=== PATIENT | male | born 1955 | race Caucasian/White ===

== ENCOUNTER 2017-01-11 10:30 | Observation (INO) | payer OTHER ==
[2017-01-11] MEDS ORDERED: Ondansetron INJ* 2 MG/ML VIAL IV ONE (11:19)
[2017-01-11] MEDS ORDERED: NS 0.9% 1000 ML* 1,000 ML IV ONE ×2 (11:25→15:17)
--- NOTE | 2017-01-11 11:37 | ED ---
Adult Trauma - HPI Summary HPI Summary: Pt here w/ Lt rib/flank pain since falling during a seizure Saturday. Bruising along Lt side, pain - worse w/ deep breathes. Denies SOB, difficulty breathing otherwise. He wears a protective helmet for occasions such as this - no head injury to report and no GILL, visual change however he is on pradaxa (for heart valve replacements d/t endocarditis) and doesn't have full recollection of seizures. [facility] was not evaluated [facility] for this issue at [facility] per pt. Saturday, per pt, seizure meds were adjusted and he has been having fatigue, nausea, vomiting and diarrhea since. Has only been able to drink water - has not eaten since Saturday. Emesis has been clear until today - dark/black. Stools also dark and some BRB today - rectal area sore from repeated diarrhea. Diffuse ab pain. Received zofran on ambulance ride here - minimal relief. Spoke w/ nursing at [facility]: *no imaging of chest and no report of fall - does have report of seizure Saturday 01/06 but that's all *01/10 report of falling - c/o diarrhea, stools black then no stools in past 24 hours - "refused meds" - pt declined taking pradaxa - nurse reports hasn't had in 4 days. INR on 12/11 1.01 *No change in seizure meds per nursing notes - takes keppra and trileptal - last adjusted in 11/2016 *H&H trends: 09/19/2016 11.4; 33.8 10/23/2016 10.6; 31.4 12/11 10.4; 31.7 BP's: 08/2016 100/60 09/2016 127/80 01/06/2017 106/52 today 93/66 Has Crohn's dz Lt sided hemiplegia (baseline) - History of Current Complaint Chief Complaint: EDGIBleed Stated Complaint: ABD PAIN/VOMITING Time Seen by Provider: 01/11/17 10:43 Hx Obtained From: Patient Pain Intensity: 9 - Allergy/Home Medications Allergies/Adverse Reactions: Allergies Allergy/AdvReac Type Severity Reaction Status Date / Time Haloperidol [From Haldol] Allergy Hallucinati Verified 01/11/17 11:30 ons Home Medications: Home Medications Cholecalciferol TAB* [Vitamin D TAB*] 2,000 units PO DAILY 01/11/17 [History Confirmed 01/11/17] Cholestyramine Light [Prevalite] 4 gm PO BID 01/11/17 [History Confirmed ] Cyanocobalamin INJ * [Vitamin B12 INJ *] 1,000 mcg IM MONTHLY 01/11/17 [History Confirmed 01/11/17] Digoxin TAB* [Lanoxin TAB*] 0.125 mg PO DAILY 01/11/17 [History Confirmed ] Docusate CAP* [Colace Cap*] 200 mg PO DAILY 01/11/17 [History Confirmed 01/11/17 ] Ferrous Sulfate TAB* 325 mg PO BEDTIME 01/11/17 [History Confirmed 01/11/17] Lactase [Lactaid] 9,000 unit PO TID 01/11/17 [History Confirmed 01/11/17] Levetiracetam XR TAB(NF) [Keppra XR (NF)] 750 mg PO BID 01/11/17 [History Confirmed 01/11/17] Magnesium Oxide TAB* [MagOx 400 TAB*] 400 mg PO TID 01/11/17 [History Confirmed 01/11/17] Metoprolol Tartrate TAB* [Lopressor TAB*] 50 mg PO BID 01/11/17 [History Confirmed 01/11/17] Oxcarbazepine [Trileptal 600 MG tab] 600 mg PO BID 01/11/17 [History Confirmed 01/11/17] Potassium Chloride [Klor-Con 8] 8 meq PO BID 01/11/17 [History Confirmed ] Spironolactone TAB* [Aldactone TAB 25 MG*] 25 mg PO DAILY 01/11/17 [History Confirmed 01/11/17] Torsemide TAB* [Demadex 20 MG*] 40 mg PO DAILY 01/11/17 [History Confirmed 01/11] PMH/Surg Hx/FS Hx/Imm Hx Previously Healthy: Yes Endocrine/Hematology History: Reports: Hx Anticoagulant Therapy - pradaxa for heart valve replacement Denies: Hx Blood Transfusions - not in past 90 days Cardiovascular History: Reports: Hx Valvular Heart Disease - repalced d/t endocarditis complications - on pradaxa GI History: Reports: Hx Crohn's Disease - bowel resections Sensory History: Reports: Hx Contacts or Glasses Opthamlomology History: Reports: Hx Contacts or Glasses Neurological History: Reports: Hx Seizures - on meds, Other Neuro Impairments/ Disorders - Lt sided hemiplegia Infectious Disease History: No Infectious Disease History: Denies: Traveled Outside the [place] in Last 30 Days - Social History Occupation: Unemployed - incarcerated Lives: Dormitory/Roommates - in [facility] - [facility] Alcohol Use: None Hx Substance Use: No Substance Use Type: Reports: None Hx Tobacco Use: Yes Smoking Status (MU): Former Smoker Review of Systems Positive: Fatigue - as in HPI Eyes: Negative Negative: Photophobia, Blurred Vision, Diplopia Negative: Dental Pain Positive: Chest Pain - see HPI Negative: Shortness Of Breath Gastrointestinal: Other - see HPI Positive: no symptoms reported Musculoskeletal: Other - see HPI Positive: Bruising - see HPI Positive: Weakness - baseline on Lt - see HPI. Negative: Headache Psychological: Other - frustrated w/ adjustment of seizure med - feels this is triggering vomiting/diarrhea/fatigue All Other Systems Reviewed And Are Negative: Yes Physical Exam Triage Information Reviewed: Yes Vital Signs On Initial Exam: Initial Vitals Temp Pulse Resp BP Pulse Ox 97.3 F 92 17 96/61 97 01/11/17 10:46 01/11/17 10:46 01/11/17 10:46 01/11/17 10:46 01/11/17 10:46 Vital Signs Reviewed: Yes Appearance: Positive: Well-Nourished - weight appropriate for height however nutrional health status unknown, Ill-Appearing - skin with subtle jaundice appearance Skin: Positive: Warm, Dry - purpuric ecchymosis over Lt flank and pelvic are - TTP; ecchymosis over Lt lower extremity - no skin breakdown - moving well Head/Face: Positive: Normal Head/Face Inspection - NTTP, no gross deformity; no battlesign, no raccoon eyes, no step off Eyes: Positive: Normal, EOMI, WISAM, Conjunctiva Clear ENT: Positive: Hearing grossly normal, TMs normal - limited observation d/t cerumen impaction. Negative: Nasal drainage Dental: Negative: Dental Fracture @ Neck: Positive: Supple, Nontender Respiratory/Lung Sounds: Positive: Clear to Auscultation, Breath Sounds Present. Negative: Rales, Rhonchi, Subcutaneous Emphysema, Stridor, Tracheal Deviation, Wheezes, Unable to speak in full sentences - speaking in full sentences w/o difficulty Cardiovascular: Positive: Pulses are Symmetrical in both Upper and Lower Extremities, IRR, Murmur. Negative: Leg Edema Left, Leg Edema Right Abdomen Description: Positive: Soft, Other: - generalized TTP, old healed ab scarring (appears surgical) Bowel Sounds: Positive: Present Musculoskeletal: Positive: Limited @ - Lt UE and LE movements - baseline Neurological: Positive: Sensory/Motor Intact - baseline for him, Alert, Oriented to Person Place, Time, CN Intact II-III Psychiatric: Positive: Normal - Chris Coma Scale Best Eye Response: 4 - Spontaneous Best Motor Response: 6 - Obeys Commands Best Verbal Response: 5 - Oriented Coma Scale Total: 15 Diagnostics - Vital Signs Vital Signs Temp Pulse Resp BP Pulse Ox 01/11/17 10:46 97.3 F 92 17 96/61 97 - Laboratory Result Diagrams: 01/12/17 04:30 01/12/17 04:30 Lab Statement: Any lab studies that have been ordered have been reviewed, and results considered in the medical decision making process. Adult Trauma Course/Dx - Course Course Of Treatment: Pt presents w/ trauma of falling to floor during seizure ( he reports Saturday; nursing reports 01/06 "seizure" and 01/10 "fall") w/ Lt sided rib/flank pain - worse w/ deep breath. CT reveals multiple rib fx's w/o pneumothorax and breathing well, pulse ox WNL. Brain and chest/ab/pelvis CT's are w/o other acute injury. Pt's labs reveal anemia however after reviewing trend w/ nurse from [facility], this appears to be a slow decline - vitals are stable today however BP is low and so IVF ordered. Pt's blood type if O+. He does take pradaxa but per nursing has declined past 4 days - this may be reversed if needed as he appears to have a GI bleed. Discussed w/ Dr. Reed. Consult hospital service (Kareem Parr) and GI (Dr. Christophe mccauley) - pt to be admitted her or transfered - hospital service to decide level of acuity, capability to further care of pt. Critical care time: 20 minutes - Diagnoses Provider Diagnoses: Fall due to seizure, Multiple rib fractures, GI bleeding - Physician Notifications Discussed Care Of Patient With: Sukhjinder Reed Discharge - Discharge Plan Condition: Stable Disposition: ADMITTED TO [facility]
[2017-01-11 11:38] LABS: Hematocrit 28 % (42-52); Hemoglobin 9.7 g/dl (14.0-18.0); Mean Corpuscular HGB Conc 34 g/dl (31-36); Mean Corpuscular Hemoglobin 32 pg (27-31); Mean Corpuscular Volume 92 fL (80-94); Mean Platelet Volume 9 um3 (7.4-10.4); Red Blood Count 3.06 10^6/ul (4.0-5.4); Red Cell Distribution Width 16 % (10.5-15)
[2017-01-11 11:39] LABS: Add Diff/Slide Review? Manual Diff Added; Comments Flag Yes
[2017-01-11] MEDS ORDERED: Pantoprazole IV* 40 MG ONE (11:44)
[2017-01-11] MEDS ORDERED: Pantoprazole IV* 40 MG IV ONE (11:44)
[2017-01-11 11:51] LABS: ALT 9 U/L (7-52); AST 10 U/L (13-39); Albumin 3.4 g/dL (3.2-5.2); Alkaline Phosphatase 111 U/L (34-104); Anion Gap 13 mmol/L (2-11); BUN/Creatinine Ratio 32.6 (8-20); Blood Urea Nitrogen 71 mg/dL (6-24); CO2 Carbon Dioxide 24 mmol/L (22-32); Calcium 8.3 mg/dL (8.6-10.3); Chloride 97 mmol/L (101-111); EGFR Non-African American 31.1 (>60); Globulin 2.3 g/dL (2-4); Glucose 115 mg/dL (70-100); Potassium 4.6 mmol/L (3.5-5.0); Sodium 134 mmol/L (133-145); Total Protein 5.7 g/dL (6.4-8.9)
[2017-01-11] MEDS ORDERED: Iodixanol* (CONTRAST) 320 MG/ML 100 ML SDV IV ONE (12:00)
[2017-01-11 12:02] LABS: Alcohol < 10 mg/dL (<10)
[2017-01-11 12:32] LABS: Troponin I 0.04 ng/mL (<0.04)
--- NOTE | 2017-01-11 12:50 | RAD ---
HISTORY: Seizure, anticoagulation, head trauma COMPARISONS: None TECHNIQUE: Multiple contiguous axial CT scans were obtained of the head without intravenous contrast. FINDINGS: HEMORRHAGE/INFARCT: There is no hemorrhage or acute infarct. MASSES/SHIFT: There is no mass or shift. EXTRA-AXIAL SPACES: There are no extra-axial fluid collections. SULCI AND VENTRICLES: There is ex vacuo dilatation of the body of the right lateral ventricle. CEREBRUM: There is right frontoparietal encephalomalacia. There is left occipital encephalomalacia. There is minimal left frontal and cephalization. BRAINSTEM: There are no focal parenchymal abnormalities. CEREBELLUM: There are no focal parenchymal abnormalities. VESSELS: The vessels are grossly normal. PARANASAL SINUSES: The paranasal sinuses are clear. ORBITS: The orbits are unremarkable. BONES AND SOFT TISSUE: No bone or soft tissue abnormalities are noted. OTHER: None IMPRESSION: MULTIFOCAL ENCEPHALOMALACIA. NO ACUTE INTRACRANIAL PATHOLOGY.
[2017-01-11 12:51] LABS: Eosinophils % 1 % (0-6); Hypochromasia 1+; Immature Granulocytes 23 % (0-9); Neutrophil % 41 % (38-83); Polychromasia 1+; Reactive Lymph % 2 % (0-6)
[2017-01-11 12:52] LABS: Toxic Granulation 1+
[2017-01-11 12:53] LABS: Add Path Review? YES
--- NOTE | 2017-01-11 12:57 | RAD ---
HISTORY: Left chest and flank pain, status post fall, on anticoagulation COMPARISONS: None TECHNIQUE: Multiple contiguous axial CT scans were obtained of the chest, abdomen, and pelvis after the administration of intravenous contrast. Coronal and sagittal multiplanar reformations are submitted for review.. Oral contrast was not administered. Delayed images were obtained through the abdomen and pelvis. FINDINGS: CHEST NECK AND THYROID: The lower neck and thyroid are unremarkable. CHEST WALL: There is no lower cervical, axillary, or supraclavicular lymphadenopathy by size criteria. HEART AND PERICARDIUM: The heart is unremarkable. AORTA AND PULMONARY VASCULATURE: There is a metallic stent of the main pulmonary artery MEDIASTINUM: There is no mediastinal lymphadenopathy by size criteria. ADOLFO: There is no hilar lymphadenopathy by size criteria. AIRWAY AND ESOPHAGUS: There is mild mucosal thickening of the esophagus diffusely. LUNG PARENCHYMA: The lungs are clear. PLEURA: No pleural abnormalities are noted. BONES AND SOFT TISSUES: There are nondisplaced fractures of the lateral aspect of the left seventh eighth and ninth ribs. Mild degenerative changes are noted. The patient is status post median sternotomy ABDOMEN/PELVIS: LIVER: The liver is normal in shape, size, contour, and attenuation. BILE DUCTS: There is mild left intrahepatic biliary dilatation. The common duct is not well visualized. GALLBLADDER: The gallbladder is not visualized. PANCREAS: The pancreas is normal, without mass or ductal dilatation. SPLEEN: Normal in size and appearance. UPPER GI TRACT: Evaluation of the gastrointestinal tract is limited by incomplete gastric distention. The patient appears to be status post choledochojejunostomy. There is postsurgical change to the upper GI tract. SMALL BOWEL \T\ MESENTERY: There is diffuse distention of the small bowel loops without clear transition point. COLON: The colon is normal in contour, course, caliber. There is no pericolonic inflammatory change. ADRENALS: Normal bilaterally. KIDNEYS: There is a 0.7 cm nonobstructing calculus of the lower pole of left kidney. BLADDER: The bladder is smooth in contour. PELVIC ORGANS: The prostate gland is normal. The seminal vesicles are symmetric. AORTA: The aorta is normal. IVC: Unremarkable LYMPH NODES: There is no lymphadenopathy by size criteria. ABDOMINAL WALL: There is no evidence for abdominal wall hernia. BONES AND SOFT TISSUES: Mild degenerative changes are noted OTHER: There is no active arterial extravasation. IMPRESSION: 1. NONDISPLACED LEFT-SIDED RIB FRACTURES. NO APPRECIABLE PNEUMOTHORAX. 2. DIFFUSE MUCOSAL THICKENING OF THE ESOPHAGUS. 3. THE PATIENT APPEARS TO BE STATUS POST CHOLEDOCHOJEJUNOSTOMY. 4. THERE IS DIFFUSE DISTENTION OF THE SMALL BOWEL LOOPS WITHOUT TRANSITION POINT. 5. LEFT-SIDED NEPHROLITHIASIS, NO HYDRONEPHROSIS.
[2017-01-11] MEDS ORDERED: traMADol TAB* 50 MG PO PRN (13:21)
[2017-01-11] MEDS ORDERED: NS 0.9% 1000 ML* 1,000 ML IV SCH (13:30)
[2017-01-11] MEDS: Ondansetron INJ* 2 MG/ML VIAL IV PRN ×2 (13:36→19:40)
[2017-01-11 13:50] LABS: Digoxin 0.7 ng/ml (0.8-2.0)
[2017-01-11] MEDS ORDERED: Zosyn per Pharmacy* NOTE FOLLOW UP SCH (14:00)
[2017-01-11] MEDS ORDERED: IDARUCIZUMAB* 2.5 GM/50 ML VIAL IV ONE (14:02)
[2017-01-11] MEDS: NS 0.9% 1000 ML* 1,000 ML IV SCH (14:21)
[2017-01-11] MEDS: Pantoprazole IV* 80 MG in NS 0.9% 250 ML* 250 ML IVPB SCH (14:21)
[2017-01-11] MEDS ORDERED: Vancomycin(*) 1,000 MG in NS 0.9% 250 ML* 250 ML IVPB ONE (14:30)
[2017-01-11 14:33] LABS: Creatine Kinase 11 U/L (10-223)
[2017-01-11] MEDS: CMCS:Lactase Enzyme (NF) 3,000 UNIT TAB PO SCH ×2 (15:54→20:32)
[2017-01-11 16:53] LABS: Hematocrit 25 % (42-52); Hemoglobin 8.3 g/dl (14.0-18.0)
--- NOTE | 2017-01-11 16:53 | HP ---
CC: Dr. Dinero; Dr. Saeed; [facility] * HISTORY AND PHYSICAL: DATE OF ADMISSION: 01/11/17 PRIMARY CARE PROVIDER: [facility]. ATTENDING PHYSICIAN WHILE IN THE HOSPITAL: Dr. Serenity Will * (report dictated by Kareem Parr NP) CHIEF COMPLAINT: 1. Fall. 2. Nausea and vomiting. 3. Black vomit. HISTORY OF PRESENT ILLNESS: Mr. Erazo is a 61-year-old male patient with a very complex medical history. He has a history of valvular heart disease. He has had a congenital heart defect. He says it was mitral valve and he has had 3 valve replacements. He has had multiple episodes of endocarditis. He has had CVA, history of AFib, he has had a history of ITP, history of PR, history of CAD, hyperlipidemia, and seizures. He comes into the ED today and says that he thinks about a week or so ago, he was recently started on Trileptal, new seizure medication, and since being on this medication, he has been feeling drowsy. He has been feeling very lethargic and tired. He says he had been pretty well controlled prior to the addition to this medication, he was having some petit mal seizures occasionally, just on Keppra, but he had again started vomiting up some black type vomit. There was concern and also tested heme positive here in the ED. In addition to this, his H and H had slightly dropped from his previous hemoglobin of 10.4, now is 9.7. The patient came into the ED , he was evaluated and because of the concern for GI bleed, we were asked to evaluate for admission. PAST MEDICAL HISTORY: Significant for: 1. CAD. 2. Hyperlipidemia. 3. History of seizures 4. Mitral valve defect that was congenital. 5. History of stroke. 6. History of endocarditis. 7. History of ITP. 8. History of AFib. 9. History of PR. PAST SURGICAL HISTORY: 1. He has had open heart surgery twice. 2. He has had numerous cardiac catheterizations with valve repairs. 3. He has had some bowel resections as well. He is unable to tell me when and exactly what resections he has had done. MEDICATIONS: Home meds according to the preliminary list that we got include: 1. Demadex 40 mg daily. 2. He is on Pradaxa 1 tablet twice a day. 3. Aldactone 25 mg daily. 4. Potassium 8 mEq p.o. b.i.d. 5. Trileptal 600 mg p.o. b.i.d. 6. Metoprolol 50 mg p.o. b.i.d. 7. Mag oxide 400 mg p.o. t.i.d. 8. Keppra 750 mg p.o. b.i.d. 9. Lactase 9000 units p.o. t.i.d. 10. Ferrous sulfate 325 mg p.o. at bedtime. 11. Colace 200 mg daily. 12. Digoxin 0.125 mg p.o. daily. 13. B12 1000 mcg IM monthly. 14. Cholestyramine 4 g p.o. b.i.d. 15. Vitamin D 2000 units p.o. daily. ALLERGIES TO MEDICATIONS: Include HALDOL. FAMILY HISTORY: His father, he thinks had MS. His mother was diabetic. SOCIAL HISTORY: He is a former smoker and former alcoholic; he quit back in the 80s. He currently resides at [place]. He does not have a surrogate decision maker at this point. REVIEW OF SYSTEMS: There is no documented fever. He denied having any significant weight change. There was no double vision. He denies having any ear discharge. There was no rhinorrhea. No sore throat. No thyroid enlargement. He denied having any chest pain. There was no orthopnea, no nocturnal dyspnea. There was no abdominal pain, but he has been having left- sided flank and chest discomfort where he felt. There is no abdominal discomfort. He does admit having some nausea with vomiting. There is no dysuria, no frequency. He denied any loss of consciousness and no recent seizures were noted to me. Review of 14 systems completed, all others negative. PHYSICAL EXAMINATION GENERAL: At this time, Mr. Erazo is a 61-year-old male patient, he is chronically ill appearing. He is sitting in the ER stretcher. He does not appear to be in any acute distress. VITAL SIGNS: Reveal blood pressure 104/50 with a pulse of 107, respirations 18 , O2 sat 99%, temperature 97.3. HEENT: Head, atraumatic and normocephalic. Eyes: EOMs are intact. Sclerae anicteric and not pale. Throat: Oral mucosa appears to be moist. No oropharyngeal erythema. NECK: Supple. LUNGS: Clear to auscultation bilaterally. No wheezes, rales, or rhonchi. HEART: Sounds S1, S2. Irregularly irregular rate. No rubs or gallops. He did have a murmur in the aortic listening area, grade 2 to 3. ABDOMEN: Soft, flat, nontender. Bowel sounds are present. EXTREMITIES: Pulses are 2+ throughout. No peripheral edema. NEUROLOGIC: He is awake, he is alert, he is oriented x3. His tongue is midline. Head Of Design are equal. He had no gross focal deficits. SKIN: Intact. DIAGNOSTIC STUDIES/LAB DATA: WBC of 7.0; RBC of 3.06; hemoglobin 9.7, hematocrit 28, his last hemoglobin that I have access to is from 12/11/16, and it was 10.4; platelet count of 146. His bands were 23. INR 1.79. His sodium was 134, potassium of 4.6, chloride of 97, bicarb 24, BUN 71, creatinine 2.18, glucose 115, lactate 1.9, calcium 8.3. Total bili 0.6, AST 10, ALT 9, alk phos 111. Troponin 0.04. Albumin 3.4. His digoxin level is pending. Serum alcohol negative. He had a brain CT obtained, which revealed multifocal encephalomalacia. No acute intracranial pathology. He did have a CT chest, abdomen, and pelvis, which revealed nondisplaced left- sided rib fractures. No appreciable pneumothorax. Diffuse mucosal thickening in the esophagus. The patient appears to be status post choledochojejunostomy, diffuse distention of the small bowel loops without transition point, left- sided nephrolithiasis, no hydronephrosis. He had an EKG, which I do not have previous for comparison, which does show atrial fibrillation, diffuse ST depression and an inversion in V2, 3, 4, and 5 with T-wave inversions in leads 1 and aVL. He has a left anterior fascicular block. No previous EKGs unfortunately for comparison. Old medical records were reviewed. ASSESSMENT AND PLAN: Mr. Erazo is a 61-year-old male patient with a complex medical history. Unfortunately, we do not have many records and we are trying to obtain, but he comes today after a fall, he has been vomiting off and on until the last week in addition to this, today in the last 24 hours, he started vomiting up some black type vomit. We are asked to evaluate for admission. He will be admitted under observation status for: 1. Presumed upper gastrointestinal bleed. Again, at this point, the concern that he could have Mila-Thrasher tear from all the vomiting and nausea that he has been having and he could be bleeding now. He is now Pradaxa and he is also heme positive. There was some scant blood on my rectal exam and mucus. My plan at this point will be to hold the Pradaxa, Protonix drip, two IVs, normal saline, serial H and H. I will touch base with Dr. Saeed, who will be evaluating the patient. 2. Nausea and vomiting. CT does show distended small bowel loops. I am going to touch base with Surgery to evaluate the patient. He does not have a transition point. He said he had a bowel movement yesterday and he has been having bowel movements throughout the week, so I do not think he is obstructed per se at this point, but I would like to have them just evaluate. The nausea and vomiting could be or direct result of the recent change with the Trileptal, which is a side effect. We will monitor this and will continue to follow. 3. Bandemia. I do not see any obvious source of infection. He is nontender on abdominal exam. He is little distended, but he is nontender. No pain. No fevers were noted. I do not have a urine, so I am going to check. His chest x- ray was negative. This could be just reaction to his underlying possible bleed , so I would like to monitor this. We will hydrate him and get blood cultures. If he spikes a fever, I will put him on broad-spectrum antibiotics, but I do not have an obvious source, we will follow closely. 4. History of valvular heart disease. I am going to get a baseline echo here. His EKG does have some significant changes, but I do not know if these are chronic or new. He is not having any active chest pain. The troponin was mildly elevated. I am going trend these and get the echo and we will continue to follow and again try to get records from [facility] to help us. 5. Atrial fibrillation. His rate now is right around 100s. We will continue the digoxin pending a dig level. If this is high, we will hold. He does have acute renal failure, which makes it difficult to give. We will monitor his levels closely. I will continue his beta magnolia, as I do not want him to go in the rapid atrial fibrillation, which will make the situation much worse. If his blood pressure is able to tolerate, we will continue with the Lopressor and we will follow I'm holding the Pradaxa. 6. History of cerebrovascular accident. Again, when able we will restart his medications, we will continue with secondary prevention. 7. History of endocarditis. Again, I do not think this is an active issue now , but I am getting blood cultures because of the bandemia. We will follow. 8. History of idiopathic thrombocytopenic purpura. Platelet count stable. We will monitor. 9. DVT prophylaxis. SCDs. 10. Acute renal failure. I do not have baseline creatinine. He may be at his baseline, but I will get a FENa on him to start with. He does appear to be prerenal. We will hydrate him and we will monitor. 11. Indeterminate troponin. Again, this could be just demand ischemia from the fact that he is suffering from possible presumable bleed. We will at this point trend these and we are getting an echo. If they continue to elevate, I will get Cardiology involved and he is asymptomatic at this point. 12. Code status. He is full code. 13. Fluids, electrolytes, and nutrition. He is n.p.o. for the time being. TIME SPENT: On the admission was 80 minutes, greater than half the time was spent [id number] with the patient obtaining my history and physical; the other half time was spent going over the plan of care with the patient and implementing plan of care. I did discuss the plan of care with my attending, Dr. Will; she is in agreement. KAREEM PARR, JANEY [id number]/CPS #: [id number] MTDD
[2017-01-11 16:56] LABS: Comments Flag Yes
[2017-01-11] MEDS ORDERED: Digoxin TAB* 0.125 MG PO SCH (17:00)
[2017-01-11 17:08] LABS: Urine Bacteria Absent (Absent); Urine Bilirubin Negative (Negative); Urine Glucose 1+(50 mg/dL) (Negative); Urine Nitrite Negative (Negative)
--- NOTE | 2017-01-11 17:12 | ECHO ---
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 Technical Comments: The study quality is fair. The study is technically limited due to patient body habitus. Completed at 1500. Left Ventricle: The left ventricular chamber size is decreased. Moderate concentric left ventricular hypertrophy is observed. Global left ventricular wall motion and contractility are within normal limits. There is normal left ventricular systolic function. The estimated ejection fraction is 55-60%. Ventricular septal wall motion has a post-operative appearance. The assessment of diastolic function is non-diagnostic. Left Atrium: The left atrium is severely dilated. Right Ventricle: The right ventricle is not well visualized. The right ventricular global systolic function is normal. Right Atrium: The right atrium is moderate to severely dilated. Aortic Valve: The aortic valve is trileaflet. There is mild to moderate aortic regurgitation. There is no evidence of aortic stenosis. Mitral Valve: There is a trace of mitral regurgitation. There is no evidence of mitral stenosis. Tricuspid Valve: The tricuspid valve structure is not well visualized. There is moderate tricuspid regurgitation. The right ventricular systolic pressure is estimated at 64 mmHg. There is evidence of severe pulmonary hypertension. There is no tricuspid stenosis. Pulmonic Valve: The pulmonic valve structure is not well visualized. Pericardium: There is no significant pericardial effusion. A pericardial fat pad is visualized. Aorta: There is no dilatation of the ascending aorta. There is no dilatation of the aortic arch. The aortic root is normal in size. Pulmonary Artery: The main pulmonary artery is not well visualized. Venous: The inferior vena cava appears normal in size. There is a greater than 50% respiratory change in the inferior vena cava dimension. Summary: There was not any prior study for comparison. Conclusions The study is technically limited due to patient body habitus. Completed at 1500. Moderate concentric left ventricular hypertrophy is observed. The estimated ejection fraction is 55-60%. Ventricular septal wall motion has a post-operative appearance. The left atrium is severely dilated. There is mild to moderate aortic regurgitation. 1.1 cm x 1.4 cm echo density on anterior MV leaflet There is a trace of mitral regurgitation. There is moderate tricuspid regurgitation. The right ventricular systolic pressure is estimated at 64 mmHg. There is evidence of severe pulmonary hypertension. Measurements Name Value Normal Range RVIDd (AP) 2D 3 cm (0.9 - 2.6) RVDdMajor (2D) 4 cm (2.2 - 4.4) RAd ISD 4CH 6.5 cm (3.4 - 4.9) RA (A4C)W 4.4 cm (2.9 - 4.6) IVSd (2D) 1.5 cm (0.6 - 1) LVPWd (2D) 1.5 cm (0.6 - 1) LVIDd (2D) 3.3 cm (3.6 - 5.4) LVIDs (2D) 2.2 cm - LV FS (2D) 33 % (25 - 45) Aortic Annulus 2.2 cm (1.4 - 2.6) Ao root diameter (2D) 3.5 cm (2.1 - 3.5) Ascending Ao 2.6 cm (2.1 - 3.4) Aortic arch 1.9 cm (1.8 - 3.4) LA dimension (AP) 2D 6.4 cm (2.3 - 3.8) LAd ISD 4CH 7 cm (2.9 - 5.3) LA ISD 4CH W 6.2 cm (2.5 - 4.5) Name Value Normal Range LA ESV SP 4CH (A/L) 104 ml - LA ESV SP 2CH (A/L) 85 ml - LA ESV BP (A/L) 97 ml - LA ESV BP (A/L) index 59.44 ml/m2 - LA ESV SP 4CH (MOD) 101 ml - LA ESV SP 2CH (MOD) 81 ml - Name Value Normal Range MV E-wave Vmax 1.89 m/sec - LV septal e' Vmax 0.03 m/sec - LV lateral e' Vmax 0.05 m/sec - LV E:e' septal ratio 63 ratio - LV E:e' lateral ratio 37.8 ratio - Name Value Normal Range AV Vmax 1.66 m/sec - AV VTI 23.39 cm - AV peak gradient 11.07 mmHg - AV mean gradient 5.62 mmHg - LVOT diameter 2 cm - LVOT Vmax 1.89 m/sec - LVOT VTI 25.66 cm - LVOT peak gradient 14.37 mmHg - LVOT mean gradient 7.83 mmHg - AR PHT 382.6 msec - AR peak gradient 51.95 mmHg - KARYNA Vmax 1.1 m/sec - Name Value Normal Range MV Vmax 1.89 m/sec - MV PHT 85.04 msec - MVA (PHT) 2.6 cm2 - Name Value Normal Range TR Vmax 3.9 m/sec - TR peak gradient 61 mmHg - RAP 3 mmHg - RVSP 64 mmHg - IVC diameter 1.9 cm - Name Value Normal Range PV Vmax 1.35 m/sec - PV peak gradient 7.2 mmHg -
[2017-01-11] MEDS: Acetaminophen TAB* 325 MG PO PRN (17:17)
[2017-01-11] MEDS ORDERED: Vancomycin per Pharmacy* NOTE FOLLOW UP PRN (17:41)
[2017-01-11 17:55] LABS: Benzodiazepine Urine Screen None Detected (None Detect)
[2017-01-11] MEDS: ZOSYN 3.375 GM Q8H per EXTENDED INFUSION IVPB SCH ×2 (19:40)
--- NOTE | 2017-01-11 20:18 | CONS ---
NEUROLOGY CONSULTATION NOTE: DATE OF CONSULT: 01/11/17 REQUESTING PROVIDER: Kareem Parr NP REASON FOR CONSULT: History of seizures, newly prescribed Trileptal with reported side effects. 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 He reports that he fell and injured his ribs several days ago. He comes from [facility]. He has then begun to have nausea as well as emesis over the past several days, which today became dark/black. He has also had diarrhea. He reports that he was started on Trileptal recently, though he is not exactly sure when he was started on that medication. He believes that this has been making him more drowsy and has caused his nausea and repeated vomiting and diarrhea. He tells me that he has been refusing the Trileptal for the last several days secondary to these side effects. He believes his last seizure was about a week, week and half ago. Otherwise, he takes Keppra and was unsure of the dose, but according to the records which accompany the patient from [place], he is on Keppra XR 750 mg twice daily. In terms of his history of seizures, the patient tells me that he has had seizures since he had a head injury in June 2004. He indicates that he had open heart surgery I believe for valve replacement in May 2004 and then says that he was in a facility in [place] and was ambulating shortly after this surgery in June when he fell and struck the right side of his head on a toilet. When asked if he had intracranial hemorrhage, he reports that he must have, but he is not aware of the extent. He thinks he might have been in the hospital for about a month. He reports that he began having seizures immediately following this and they were initially convulsions, but over time they have become less intense and he describes having seizures which consist of left arm and head clonic activity which can last 5 to 10 minutes. He is sometimes aware and sometimes not aware during these episodes. He typically has an aura of "being out in space" before the seizures occur. With initiation of Keppra, he states that his seizures typically occur about once a week, but sometimes he will go a month without any seizures. Triggers include stress and being fatigued. He reports that if he is mentally active, for example writing a letter, he will not have a seizure, but when he is sitting quietly relaxing he is more likely to experience a seizure. 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 The patient is unaware of ever being treated with seizure medication besides Keppra until Trileptal was recently added. He is unclear as to why Trileptal was added now except that he was transferred from the skilled nursing in [place] in September to [place] here. Neurology input was requested secondary to his history of seizure disorder and difficulty with tolerating Trileptal. PAST MEDICAL HISTORY: 1. 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 2. 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 3. Crohn's disease. 4. Valve replacement secondary to endocarditis. HOME MEDICATIONS: 1. Torsemide 40 mg daily. 2. Levetiracetam XR 750 mg twice daily. 3. Metoprolol 50 mg twice daily. 4. Docusate 200 mg daily. 5. Cholestyramine 4 g twice daily. 6. Spironolactone 25 mg daily. 7. Potassium chloride 8 mEq b.i.d. 8. Magnesium oxide 400 mg t.i.d. 9. Ferrous sulfate 325 mg at bedtime. 10. Digoxin 0.125 mg daily. 11. Oxcarbazepine 600 mg b.i.d. 12. B12 injection 1000 mcg monthly. 13. Lactate. 14. Vitamin D 2000 units daily. ALLERGIES: HALDOL causes hallucinations. FAMILY HISTORY: The patient denies any knowledge of any family members with epilepsy. There is a history of diabetes and heart disease in the family. SOCIAL HISTORY: The patient is an inmate at [facility] and prior to that has been an inmate at a facility called [facility] in [place] since at least 2004. He reports being a former smoker and no current substance abuse. REVIEW OF SYSTEMS: The patient endorses feeling dizzy and fatigued recently. He has had flank pain as noted. PHYSICAL EXAM: Vital Signs: Temperature 98.2 with a T-max 100 degrees Fahrenheit at 1343, blood pressure 103/48, heart rate 101, O2 saturation is 97% on room air. General Examination: The patient is alert and awake, in no acute distress. He is a reasonable informant. Heart: Tachycardic without obvious murmur. Lungs: Clear anteriorly to auscultation. Extremities: Notable for multiple bruises over his lower extremities and abrasion on his left lateral calf. Neurological Exam: He is fully awake, alert, and oriented. Speech is fluent without dysarthria or aphasia. On cranial nerve testing, his pupils are equal, round, and reactive from 3 to 2 mm bilaterally. His eye movements were somewhat restricted in right lateral gaze, but there is no nystagmus or diplopia. Field testing is notable for left homonymous hemianopsia and right inferior quadrant defect. His facial sensation is diminished to light touch in left V1 throughout V3 distributions. There is slight nasolabial fold flattening , but good activation with smile. His forehead wrinkles symmetrically. He endorses diminished hearing to finger rub on the left. The palate elevates symmetrically and the tongue is midline. Motor Examination: He has spasticity in the left arm and leg. He has a left hemiparesis and strength is full on the right. Sensation is diminished to pinprick in the left arm and leg. Reflexes are 2+ in the right arm and leg, 3+ in the left arm and at the knee with downgoing or mute toes bilaterally. [id number] is intact without ataxia. He was not ambulated. DIAGNOSTIC STUDIES/LAB DATA: CBC is notable for hematocrit of 28, hemoglobin of 9.7, and platelets of 146,000. He has 23% bands. Chemistry panel is notable for creatinine of 2.18, BUN 71, chloride is 97 and anion gap of 13. Glucose of 115, calcium of 8.3. His troponin is 0.04, lactate 1.9. Brain CT was obtained and personally reviewed and shows extensive encephalomalacia in the right frontoparietal region at the vertex with ex vacuo dilation of the right lateral ventricle. There is also some encephalomalacia in the left parietal occipital lobe as well as a small area in the left frontal lobe. IMPRESSION: Ronald Erazo is a 61-year-old man with a history of localization related epilepsy which sounds as though it arises from the right hemisphere and is likely secondary to the extensive encephalomalacia noted on CT scan. He reports having seen a physician by the name of Dr. Cabello, neurologist in [place] in the past prior to his transfer to this facility. I have talk to Kareem Parr and we will try to track down some records from her in terms of the medications he has been tried on if anything besides Keppra in the past. At this point, I would not recommend continuing the Trileptal and it sounds like he has not been taking it for several days anyway. I will increase his Keppra to 750 mg in the morning and 1500 mg at night and we will send off a level as well. It appears this has actually already been ordered in the emergency department. If monotherapy with Keppra fails to adequate control his seizures, then consideration could be given to adding a second agent, but at this point I would try to work slowly with the Keppra for the time being, especially until previous neurologist records are obtained. Dr. Allred will be taking over the neurology service this evening and he will receive sign-out on the patient. [id number]/[facility] #: [id number] MTDD
[2017-01-11] MEDS: Metoprolol Tartrate TAB* 50 mg PO SCH (20:32)
[2017-01-11] MEDS ORDERED: levETIRAcetam TAB* 500 MG PO SCH ×2 (21:00)
[2017-01-11] MEDS ORDERED: OXcarbazepine TAB(*) 300 MG PO SCH (21:00)
[2017-01-11] MEDS: Morphine INJ* 4 MG/ML 1 ML CARPUJECT IV PRN (21:07)
--- NOTE | 2017-01-11 21:26 | CONS ---
GASTROENTEROLOGY CONSULTATION: DATE OF CONSULTATION: 01/11/17 CONSULTING PHYSICIANS: Dr. Tarik Glover, [place]; Kareem Parr, [place]. REASON FOR CONSULTATION: Coffee-ground emesis times several days with hemoglobin down just less than a gram from a baseline of 10.4 to 9.7. HISTORY: DICTATION ENDS ABRUPTLY. [id number]/[facility] #: [id number] MTDD
--- NOTE | 2017-01-11 21:52 | CONS ---
GASTROENTEROLOGY CONSULT: DATE: 01/11 CONSULTING PHYSICIAN: Kiran Glover, [facility]; Kareem Parr NP REASON FOR CONSULT: Coffee-ground emesis in a man with a history of seizures, multiple prior abdominal surgeries, and chronic renal insufficiency. HISTORY OF PRESENT ILLNESS: This 61-year-old prisoner a few days ago began vomiting. He first saw some blood in it this morning at 8 a.m. There was no fever when this started. His diet had not changed. The only new factor that could be referenced was a change in his seizure regimen with the addition of Trileptal. He states his diet is regular. He does not have any chronic acid peptic complaints in general. He does have a history of chronic diarrhea, for which he is on Prevalite and he is also on magnesium regularly and ferrous sulfate. He references multiple abdominal surgeries - see below. He has had a prior upper endoscopy, but it was over 15 years ago and does not know of the findings. It was probably done by Dr. Gudino at [facility]. He has been retired over 5 years, possibly 10. The patient fell injuring his left side 4 or 5 days ago, which he blamed on the Trileptal. CT in the emergency room today showed 3 broken ribs and some ecchymoses in that area. He is on Pradaxa because of atrial fibrillation, currently on hold. He says he takes Tylenol for various indications and has not been on aspirin, ibuprofen, or Aleve. PAST MEDICAL HISTORY: 1. Mitral valve repair, age 10. 2. Bovine valve replacement - details unknown. 3. Multiple cardiac catheterizations and valve procedures. 4. 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 5. Exploratory laparotomy with lysis of adhesions in 1987. 6. Chronic diarrhea - he mentions irritable bowel and Crohn's and is not really specific on the difference of the details. He has been on cholestyramine for 30 years or more. He cannot reference any specific Crohn's medications and does not recognize them either though when questioned says as somewhat of a default response "yes probably." 7. Chronic renal insufficiency. 9. Status post cholecystectomy with CT scan suggesting there was a choledochojejunostomy. SOCIAL HISTORY: He is at [facility] and further details were not requested. REVIEW OF SYSTEMS: No history of sam syncope, [place], jaundice, psoriasis, other skin lesions, recent rash, renal stones. The baseline hemoglobin appeared to have been 10.4. He was taking Keppra for seizures from before. PHYSICAL EXAM: He is a chronically ill-appearing man, lying in bed, having blood cultures taken. HEENT exam is unremarkable. He has no adenopathy. Chest shows multiple scars, well healed. The abdomen has a right upper quadrant traditional cholecystectomy scar and also a long midline scar with some buckling and deformity. The abdomen is soft, but full and there is no palpable organomegaly or tenderness. Rectal deferred though the nurse describes him passing a brown, somewhat dark, formed stool without any overt blood. Extremities show some ecchymoses on the left side. There is a large ecchymosis over the left lateral chest, it was mostly visible and not really having a 3- dimensional component. IMPRESSION: This 61-year-old man has had several days of nausea and vomiting. The cause of that is unclear as he has not had an overt infection and he has not been using NSAIDs. Trileptal could cause nausea, possibly some vomiting but unless one just was unlucky and had a Mila-Thrasher very early on, blaming the whole current presentation on Trileptal seems unusual. At the moment, over the last 12 hours, he has not had any further vomiting and certainly no signs of active GI bleeding. The fall in hemoglobin from baseline is relatively modest and could easily be well explained by the ecchymosis on his side. If tomorrow there is no other higher priority (i.e. infection that the bandemia might be suggesting), then an upper endoscopy could be attempted though it might have to be done supine, endoscopy a little bit more difficult to accomplish. Although, he uses the word Crohn's in the fist sentence describing his chronic gastrointestinal situation that started with surgery as an infant, it is far from clear listening to the medications used that he really does have Crohn's. Some records will be requested from [facility]. [id number]/[facility] #: [id number] SEAN
[2017-01-11 23:07] LABS: Hematocrit 26 % (42-52)
[2017-01-12] MEDS: Ondansetron INJ* 2 MG/ML VIAL IV PRN ×2 (01:45→08:36)
[2017-01-12] MEDS: Morphine INJ* 4 MG/ML 1 ML CARPUJECT IV PRN ×3 (01:45→09:32)
[2017-01-12] MEDS: ZOSYN 3.375 GM Q8H per EXTENDED INFUSION IVPB SCH ×2 (03:17)
[2017-01-12] MEDS: Pantoprazole IV* 80 MG in NS 0.9% 250 ML* 250 ML IVPB SCH ×2 (04:10→10:49)
[2017-01-12 04:43] LABS: Hematocrit 26 % (42-52); Hemoglobin 8.8 g/dl (14.0-18.0); Mean Corpuscular HGB Conc 34 g/dl (31-36); Mean Corpuscular Hemoglobin 31 pg (27-31); Mean Corpuscular Volume 92 fL (80-94); Mean Platelet Volume 8 um3 (7.4-10.4); Red Blood Count 2.81 10^6/ul (4.0-5.4); Red Cell Distribution Width 16 % (10.5-15); White Blood Count 4.4 10^3/ul (3.5-10.8)
[2017-01-12 04:51] LABS: Add Diff/Slide Review? Manual Diff Added; Comments Flag Yes
[2017-01-12 05:01] LABS: Calcium 7.2 mg/dL (8.6-10.3); EGFR African American 57.2 (>60); EGFR Non-African American 44.5 (>60); Potassium 4.1 mmol/L (3.5-5.0)
[2017-01-12] MEDS: CMCS:Lactase Enzyme (NF) 3,000 UNIT TAB PO SCH (08:03)
[2017-01-12] MEDS: Metoprolol Tartrate TAB* 50 mg PO SCH (08:13)
--- NOTE | 2017-01-12 08:24 | PN ---
Subjective Date of Service: 01/12/17 Interval History: No emesis since noon yesterday. Hungry. No pain, no new c/o. He states his last seizure was about 2 weeks ago. Objective Active Medications: Acetaminophen (Tylenol Tab*) 650 mg PO Q4H PRN PRN Reason: FEVER/PAIN Last Admin: 01/11/17 17:17 Dose: 650 mg Digoxin (Lanoxin Tab*) 0.125 mg PO DAILY@1700 [facility] Last Admin: 01/11/17 17:16 Dose: 0.125 mg Pantoprazole Sodium 80 mg/ (Sodium Chloride) 250 mls @ 25 mls/hr IVPB Q10H [facility] Last Admin: 01/12/17 04:10 Dose: 25 mls/hr Sodium Chloride (Ns 0.9% 1000 Ml*) 1,000 mls @ 100 mls/hr IV PER RATE [facility] Stop: 01/12/17 23:29 Last Admin: 01/11/17 14:21 Dose: 100 mls/hr Vancomycin HCl 1,000 mg/ (Sodium Chloride) 250 mls @ 166.667 mls/hr IVPB Q24H [facility] Influenza Virus Vaccine (Fluarix *Quad* *) 0.5 ml IM .ONCE ONE Stop: 01/12/17 09:01 Last Admin: 01/12/17 08:03 Dose: 0.5 ml Lactase (Lactaid Fast Act (Nf)) 9,000 unit PO TID [facility] PRN Reason: Protocol Last Admin: 01/12/17 08:03 Dose: 9,000 unit Levetiracetam (Keppra Tab*) 1,500 mg PO BEDTIME [facility] Last Admin: 01/11/17 20:32 Dose: 1,500 mg Levetiracetam (Keppra Tab*) 750 mg PO QAM [facility] PRN Reason: Protocol Last Admin: 01/12/17 08:02 Dose: 750 mg Metoprolol Tartrate (Lopressor Tab*) 50 mg PO BID [facility] Last Admin: 01/12/17 08:13 Dose: Not Given Morphine Sulfate (Morphine Inj (Syringe)*) 4 mg IV Q4H PRN PRN Reason: PAIN Last Admin: 01/12/17 05:51 Dose: 4 mg Ondansetron HCl (Zofran Inj*) 4 mg IV Q6H PRN PRN Reason: NAUSEA Last Admin: 01/12/17 01:45 Dose: 4 mg Pharmacy Consult (Zosyn Per Pharmacy*) 1 note FOLLOW UP .ZOSYN PER PHARMACY MELA Pharmacy Consult (Vancomycin Per Pharmacy*) 1 note FOLLOW UP . PRN PRN Reason: PER PROTOCOL Pharmacy Profile Note (Vancomycin Trough Check) 1 note FOLLOW UP 1630 ONE Stop: 01/14/17 16:31 Vital Signs 01/11/17 01/11/17 01/11/17 13:00 13:25 13:30 Temperature Pulse Rate 106 103 105 Respiratory 17 13 Rate Blood Pressure 109/60 (mmHg) O2 Sat by Pulse 99 100 99 Oximetry 01/11/17 01/11/17 01/11/17 13:43 13:45 14:00 Temperature 100.0 F Pulse Rate 125 103 99 Respiratory 16 18 17 Rate Blood Pressure 109/60 88/57 92/50 (mmHg) O2 Sat by Pulse 99 98 100 Oximetry 01/11/17 01/11/17 01/11/17 14:01 14:15 14:30 Temperature Pulse Rate 100 109 110 Respiratory 18 27 25 Rate Blood Pressure 79/46 103/48 (mmHg) O2 Sat by Pulse 97 97 Oximetry 01/11/17 01/11/17 01/11/17 14:34 14:45 15:00 Temperature 99.0 F Pulse Rate 102 108 Respiratory 21 22 Rate Blood Pressure 99/46 100/51 (mmHg) O2 Sat by Pulse 98 98 Oximetry 01/11/17 01/11/17 01/11/17 15:01 15:15 15:30 Temperature Pulse Rate 104 102 110 Respiratory 13 16 15 Rate Blood Pressure 106/47 105/61 (mmHg) O2 Sat by Pulse 97 100 99 Oximetry 01/11/17 01/11/17 01/11/17 15:45 15:49 16:00 Temperature 98.2 F Pulse Rate 103 Respiratory 16 25 Rate Blood Pressure 94/49 (mmHg) O2 Sat by Pulse 99 Oximetry 01/11/17 01/11/17 01/11/17 16:08 16:09 16:14 Temperature Pulse Rate 112 115 109 Respiratory 30 20 19 Rate Blood Pressure 69/45 91/56 108/48 (mmHg) O2 Sat by Pulse 98 100 99 Oximetry 01/11/17 01/11/17 01/11/17 16:15 16:30 16:45 Temperature Pulse Rate 118 106 108 Respiratory 23 22 18 Rate Blood Pressure 106/49 111/61 109/51 (mmHg) O2 Sat by Pulse 99 99 100 Oximetry 01/11/17 01/11/17 01/11/17 17:00 17:01 17:15 Temperature Pulse Rate 104 110 116 Respiratory 15 20 20 Rate Blood Pressure 112/56 106/63 (mmHg) O2 Sat by Pulse 92 97 100 Oximetry 01/11/17 01/11/17 01/11/17 17:16 17:30 17:45 Temperature Pulse Rate 124 107 112 Respiratory 22 24 Rate Blood Pressure 115/54 100/69 (mmHg) O2 Sat by Pulse 100 99 Oximetry 01/11/17 01/11/17 01/11/17 18:00 18:01 18:15 Temperature Pulse Rate 121 116 116 Respiratory 16 23 22 Rate Blood Pressure 105/61 101/49 (mmHg) O2 Sat by Pulse 87 100 Oximetry 01/11/17 01/11/17 01/11/17 18:30 18:38 18:45 Temperature Pulse Rate 102 116 107 Respiratory 25 23 20 Rate Blood Pressure 104/50 110/55 102/46 (mmHg) O2 Sat by Pulse 99 100 100 Oximetry 01/11/17 01/11/17 01/11/17 19:00 19:01 19:15 Temperature Pulse Rate 113 115 115 Respiratory 25 18 20 Rate Blood Pressure 113/55 110/58 (mmHg) O2 Sat by Pulse 99 96 99 Oximetry 01/11/17 01/11/17 01/11/17 19:31 19:45 19:59 Temperature 98.8 F Pulse Rate 119 117 Respiratory 33 16 21 Rate Blood Pressure 119/55 99/56 (mmHg) O2 Sat by Pulse 98 Oximetry 01/11/17 01/11/17 01/11/17 20:00 20:01 20:15 Temperature Pulse Rate 111 115 116 Respiratory 18 25 29 Rate Blood Pressure 108/68 122/59 (mmHg) O2 Sat by Pulse 100 99 98 Oximetry 01/11/17 01/11/17 01/11/17 20:30 20:45 20:49 Temperature Pulse Rate 111 102 Respiratory 26 26 23 Rate Blood Pressure 123/62 121/52 (mmHg) O2 Sat by Pulse 85 99 Oximetry 01/11/17 01/11/17 01/11/17 21:00 21:01 21:07 Temperature Pulse Rate 113 101 Respiratory 25 22 25 Rate Blood Pressure 115/59 (mmHg) O2 Sat by Pulse 99 98 Oximetry 01/11/17 01/11/17 01/11/17 21:15 21:30 21:45 Temperature Pulse Rate 105 106 100 Respiratory 26 26 19 Rate Blood Pressure 110/59 106/52 109/82 (mmHg) O2 Sat by Pulse 97 95 99 Oximetry 01/11/17 01/11/17 01/11/17 22:00 22:01 22:15 Temperature Pulse Rate 104 109 107 Respiratory 22 26 25 Rate Blood Pressure 114/53 114/59 (mmHg) O2 Sat by Pulse 97 96 96 Oximetry 01/11/17 01/11/17 01/11/17 22:30 23:00 23:24 Temperature Pulse Rate 101 102 97 Respiratory 24 19 23 Rate Blood Pressure 121/57 113/55 (mmHg) O2 Sat by Pulse 99 98 98 Oximetry 01/11/17 01/11/17 01/11/17 23:26 23:30 23:45 Temperature 97.8 F Pulse Rate 108 95 Respiratory 31 18 Rate Blood Pressure 115/57 110/60 (mmHg) O2 Sat by Pulse 95 98 Oximetry 01/12/17 01/12/17 01/12/17 00:00 00:01 00:03 Temperature Pulse Rate 104 107 106 Respiratory 18 20 22 Rate Blood Pressure 105/54 (mmHg) O2 Sat by Pulse 98 98 97 Oximetry 01/12/17 01/12/17 01/12/17 00:15 00:30 00:45 Temperature Pulse Rate 101 112 107 Respiratory 28 27 23 Rate Blood Pressure 106/59 108/55 108/52 (mmHg) O2 Sat by Pulse 95 93 90 Oximetry 01/12/17 01/12/17 01/12/17 00:57 01:00 01:01 Temperature Pulse Rate 94 97 Respiratory 24 24 24 Rate Blood Pressure 103/46 (mmHg) O2 Sat by Pulse 90 90 Oximetry 01/12/17 01/12/17 01/12/17 01:45 01:51 02:00 Temperature Pulse Rate 99 Respiratory 24 23 31 Rate Blood Pressure 108/58 (mmHg) O2 Sat by Pulse 93 Oximetry 01/12/17 01/12/17 01/12/17 02:01 03:00 03:01 Temperature Pulse Rate 96 88 91 Respiratory 27 27 23 Rate Blood Pressure 103/52 (mmHg) O2 Sat by Pulse 94 94 90 Oximetry 01/12/17 01/12/17 01/12/17 03:44 04:00 04:01 Temperature 97.4 F Pulse Rate 93 86 85 Respiratory 21 20 25 Rate Blood Pressure 103/52 107/51 (mmHg) O2 Sat by Pulse 93 93 96 Oximetry 01/12/17 01/12/17 01/12/17 05:00 05:01 05:02 Temperature Pulse Rate 87 86 86 Respiratory 24 22 26 Rate Blood Pressure 88/41 89/37 (mmHg) O2 Sat by Pulse 92 94 91 Oximetry 01/12/17 01/12/17 01/12/17 05:03 05:51 05:58 Temperature Pulse Rate 86 Respiratory 27 32 25 Rate Blood Pressure 101/52 (mmHg) O2 Sat by Pulse 95 Oximetry 01/12/17 01/12/17 01/12/17 06:00 06:01 07:00 Temperature Pulse Rate 84 87 85 Respiratory 30 24 21 Rate Blood Pressure 101/51 103/59 (mmHg) O2 Sat by Pulse 94 93 87 Oximetry 01/12/17 01/12/17 07:01 07:32 Temperature 97.6 F Pulse Rate 87 Respiratory 22 Rate Blood Pressure (mmHg) O2 Sat by Pulse 94 Oximetry Oxygen Devices in Use Now: None Appearance: Alert, partly up on ICU bed. In good spirits. Looks comfortable. Eyes: No Scleral Icterus Neck: NL Appearance and Movements; NL JVP, No Thyroid Enlargement, Masses Respiratory: Symmetrical Chest Expansion and Respiratory Effort, Clear to Auscultation, Clear to Percussion Cardiovascular: NL Sounds; No Murmurs; No JVD, RRR, No Edema, - Abdominal: NL Sounds; No Tenderness; No Distention, No Hepatosplenomegaly, - Extremities: No Edema, No Clubbing, Cyanosis, - Skin: No Rash or Ulcers, No Nodules or Sclerosis, - Neurological: Alert and Oriented x 3, NL Sensation Result Diagrams: 01/12/17 04:30 01/12/17 04:30 Microbiology and Other Data: Microbiology 01/11/17 14:12 Nasal Screen MRSA (PCR)(RICCARDO) - Final Nasal Mrsa Negative Assess/Plan/Problems-Billing Assessment: - Patient Problems (1) GI bleed Current Visit: Yes Status: Acute Code(s): K92.2 - GASTROINTESTINAL HEMORRHAGE, UNSPECIFIED SNOMED Code(s): 09266959 Comment: No change in H&H as of 01/12. Pt states he has had several EGD's and colonoscopies in the past. Awaiting EGD 01/12. Transfer to . (2) Seizures Current Visit: Yes Status: Acute Code(s): R56.9 - UNSPECIFIED CONVULSIONS SNOMED Code(s): 97201007 Comment: Dr. Dinero's note appreciated. Continue increased dose of levetiracetam. (3) CAD (coronary artery disease) Current Visit: Yes Status: Acute Code(s): I25.10 - ATHSCL HEART DISEASE OF [place] CORONARY ARTERY W/O ANG PCTRS SNOMED Code(s): 74000740 Comment: Continue metoprolol. Not clear why he is not on ASA and a statin. (4) Atrial fibrillation Current Visit: Yes Status: Acute Code(s): I48.91 - UNSPECIFIED ATRIAL FIBRILLATION SNOMED Code(s): 42618678 Comment: Dabigatran on hold, resume when risk of GI bleed known to be low. Continue digoxin, level 0.7 on 01/11/17. (5) Renal insufficiency Current Visit: Yes Status: Acute Code(s): N28.9 - DISORDER OF KIDNEY AND URETER, UNSPECIFIED SNOMED Code(s): 422047661 Comment: His baseline creatinine not known to us. BMP 01/13. Continue IV fluids for now. (6) Anemia Current Visit: Yes Status: Acute Code(s): D64.9 - ANEMIA, UNSPECIFIED SNOMED Code(s): 194917451 Comment: Stable. His baseline H&H unknown to us. CBC 01/13.
[2017-01-12] MEDS: Acetaminophen TAB* 325 MG PO PRN ×2 (08:35→14:12)
[2017-01-12] MEDS: NS 0.9% 1000 ML* 1,000 ML IV SCH (08:50)
[2017-01-12] MEDS ORDERED: levETIRAcetam TAB* 500 MG PO SCH (09:00)
[2017-01-12] MEDS ORDERED: Docusate CAP* 100 MG PO SCH (09:00)
[2017-01-12] MEDS ORDERED: Influenza VAC *QUAD* 2017-18* 0.5 ML SYRINGE IM ONE (09:00)
[2017-01-12] MEDS ORDERED: Propofol* 10 MG/ML 20 ML BTL IV PUSH ONE (10:23)
[2017-01-12] MEDS ORDERED: fentaNYL* 50 MCG/ML 2 ML VIAL (100 MCG VIAL) ONE (10:23)
[2017-01-12] MEDS ORDERED: Ondansetron INJ* 2 MG/ML VIAL ONE (10:23)
[2017-01-12] MEDS ORDERED: Lidocaine 2% PF * 5 ML VIAL ONE (10:23)
[2017-01-12] MEDS ORDERED: Midazolam* 1 MG/ML 5 ML VIAL (5 MG) ONE (10:24)
[2017-01-12] MEDS ORDERED: KETAMINE HCL* 50 MG/ML 10 ML VIAL ONE (10:24)
[2017-01-12] MEDS ORDERED: Ondansetron INJ* 2 MG/ML VIAL IV PRN (11:45)
--- NOTE | 2017-01-12 12:35 | PN ---
Progress Note - Progress Note Date of Service: 01/12/17 - Gastroenterology Note: Patient seen and examined. No new overnight issues. +nausea. No emesis. No abdominal pain. No melena/rectal bleeding. Vital Signs: Temp Pulse Resp BP Pulse Ox 96.8 F 86 12 109/51 99 01/12/17 11:42 01/12/17 12:15 01/12/17 12:15 01/12/17 12:15 01/12/17 12:15 GENERAL: AAOx3, NAD, lying in bed. HEENT: Dry MMM. CV: RRR. PULM: CTAB. ABDOMEN: Soft, mildly distended, +BS x 4 quadrants, non-tender. No R/G/R. Left- sided hematoma with bruising. EXTREMITIES: Lower extremities handcuffed. Warm, SCD's B/L, No edema. Laboratory Results - last 24 hr 01/11/17 01/11/17 01/11/17 11:20 11:20 11:20 WBC RBC Hgb Hct MCV MCH MCHC RDW Plt Count MPV Immature Gran % (Auto) 23 H Absolute Neuts (auto) Absolute Lymphs (auto) Absolute Monos (auto) Absolute Eos (auto) Absolute Basos (auto) Absolute Nucleated RBC Neutrophils % 41 Band Neutrophils % 23 H Lymphocytes % 12 L Reactive Lymphs % 2 Monocytes % 21 H Eosinophils % 1 Toxic Granulation 1+ Normal RBC Morphology Not Reportable Polychromasia 1+ Hypochromasia 1+ Hem Pathologist Commnt INR (Anticoag Therapy) Sodium Potassium Chloride Carbon Dioxide Anion Gap BUN Creatinine Est GFR ( Amer) Est GFR (Non-Af Amer) BUN/Creatinine Ratio Glucose Calcium Total Creatine Kinase 11 Troponin I 0.04 H* Urine Color Urine Appearance Urine pH Ur Specific [place] Urine Protein Urine Ketones Urine Blood Urine Nitrate Urine Bilirubin Urine Urobilinogen Ur Leukocyte Esterase Urine WBC (Auto) Urine RBC (Auto) Urine Bacteria WBC Casts Ur Random Creatinine Ur Random Sodium Urine Glucose Digoxin 0.7 L Urine Opiates Screen Ur Barbiturates Screen Ur Phencyclidine Scrn Ur Amphetamines Screen U Benzodiazepines Scrn Urine Cocaine Screen U Cannabinoids Screen Blood Type O Positive Antibody Screen Negative Crossmatch See Detail 01/11/17 01/11/17 01/11/17 16:15 16:15 16:15 WBC RBC Hgb Hct MCV MCH MCHC RDW Plt Count MPV Immature Gran % (Auto) Absolute Neuts (auto) Absolute Lymphs (auto) Absolute Monos (auto) Absolute Eos (auto) Absolute Basos (auto) Absolute Nucleated RBC Neutrophils % Band Neutrophils % Lymphocytes % Reactive Lymphs % Monocytes % Eosinophils % Toxic Granulation Normal RBC Morphology Polychromasia Hypochromasia Hem Pathologist Commnt INR (Anticoag Therapy) Sodium Potassium Chloride Carbon Dioxide Anion Gap BUN Creatinine Est GFR ( Amer) Est GFR (Non-Af Amer) BUN/Creatinine Ratio Glucose Calcium Total Creatine Kinase Troponin I Urine Color Yellow Urine Appearance Cloudy Urine pH 5.0 Ur Specific [place] 1.030 Urine Protein 1+(30 mg/dl) H Urine Ketones 1+ H Urine Blood 1+ H Urine Nitrate Negative Urine Bilirubin Negative Urine Urobilinogen Negative Ur Leukocyte Esterase Negative Urine WBC (Auto) 3+(>20/hpf) H Urine RBC (Auto) Trace(0-2/hpf) Urine Bacteria Absent WBC Casts Present H Ur Random Creatinine 61.92 Ur Random Sodium 48 Urine Glucose 1+(50 mg/dl) H Digoxin Urine Opiates Screen None detected Ur Barbiturates Screen None detected Ur Phencyclidine Scrn None detected Ur Amphetamines Screen None detected U Benzodiazepines Scrn None detected Urine Cocaine Screen None detected U Cannabinoids Screen None detected Blood Type Antibody Screen Crossmatch 01/11/17 01/11/17 01/11/17 16:44 16:44 18:44 WBC RBC Hgb 8.3 L Hct 25 L MCV MCH MCHC RDW Plt Count MPV Immature Gran % (Auto) Absolute Neuts (auto) Absolute Lymphs (auto) Absolute Monos (auto) Absolute Eos (auto) Absolute Basos (auto) Absolute Nucleated RBC Neutrophils % Band Neutrophils % Lymphocytes % Reactive Lymphs % Monocytes % Eosinophils % Toxic Granulation Normal RBC Morphology Polychromasia Hypochromasia Hem Pathologist Commnt INR (Anticoag Therapy) Sodium Potassium Chloride Carbon Dioxide Anion Gap BUN Creatinine Est GFR ( Amer) Est GFR (Non-Af Amer) BUN/Creatinine Ratio Glucose Calcium Total Creatine Kinase Troponin I 0.03 0.03 Urine Color Urine Appearance Urine pH Ur Specific [place] Urine Protein Urine Ketones Urine Blood Urine Nitrate Urine Bilirubin Urine Urobilinogen Ur Leukocyte Esterase Urine WBC (Auto) Urine RBC (Auto) Urine Bacteria WBC Casts Ur Random Creatinine Ur Random Sodium Urine Glucose Digoxin Urine Opiates Screen Ur Barbiturates Screen Ur Phencyclidine Scrn Ur Amphetamines Screen U Benzodiazepines Scrn Urine Cocaine Screen U Cannabinoids Screen Blood Type Antibody Screen Crossmatch 01/11/17 01/12/17 01/12/17 23:00 04:30 04:30 WBC 4.4 RBC 2.81 L Hgb 9.0 L 8.8 L Hct 26 L 26 L MCV 92 MCH 31 MCHC 34 RDW 16 H Plt Count 97 L MPV 8 Immature Gran % (Auto) Absolute Neuts (auto) 2.5 Absolute Lymphs (auto) 0.4 L Absolute Monos (auto) 1.3 H Absolute Eos (auto) 0.1 Absolute Basos (auto) 0 Absolute Nucleated RBC 0 Neutrophils % Band Neutrophils % Lymphocytes % Reactive Lymphs % Monocytes % Eosinophils % Toxic Granulation Normal RBC Morphology Polychromasia Hypochromasia Hem Pathologist Commnt INR (Anticoag Therapy) 1.57 H Sodium Potassium Chloride Carbon Dioxide Anion Gap BUN Creatinine Est GFR ( Amer) Est GFR (Non-Af Amer) BUN/Creatinine Ratio Glucose Calcium Total Creatine Kinase Troponin I Urine Color Urine Appearance Urine pH Ur Specific [place] Urine Protein Urine Ketones Urine Blood Urine Nitrate Urine Bilirubin Urine Urobilinogen Ur Leukocyte Esterase Urine WBC (Auto) Urine RBC (Auto) Urine Bacteria WBC Casts Ur Random Creatinine Ur Random Sodium Urine Glucose Digoxin Urine Opiates Screen Ur Barbiturates Screen Ur Phencyclidine Scrn Ur Amphetamines Screen U Benzodiazepines Scrn Urine Cocaine Screen U Cannabinoids Screen Blood Type Antibody Screen Crossmatch 01/12/17 04:30 WBC RBC Hgb Hct MCV MCH MCHC RDW Plt Count MPV Immature Gran % (Auto) Absolute Neuts (auto) Absolute Lymphs (auto) Absolute Monos (auto) Absolute Eos (auto) Absolute Basos (auto) Absolute Nucleated RBC Neutrophils % Band Neutrophils % Lymphocytes % Reactive Lymphs % Monocytes % Eosinophils % Toxic Granulation Normal RBC Morphology Polychromasia Hypochromasia Hem Pathologist Commnt INR (Anticoag Therapy) Sodium 136 Potassium 4.1 Chloride 108 Carbon Dioxide 21 L Anion Gap 7 BUN 56 H Creatinine 1.60 H Est GFR ( Amer) 57.2 Est GFR (Non-Af Amer) 44.5 BUN/Creatinine Ratio 35.0 H Glucose 95 Calcium 7.2 L Total Creatine Kinase Troponin I Urine Color Urine Appearance Urine pH Ur Specific [place] Urine Protein Urine Ketones Urine Blood Urine Nitrate Urine Bilirubin Urine Urobilinogen Ur Leukocyte Esterase Urine WBC (Auto) Urine RBC (Auto) Urine Bacteria WBC Casts Ur Random Creatinine Ur Random Sodium Urine Glucose Digoxin Urine Opiates Screen Ur Barbiturates Screen Ur Phencyclidine Scrn Ur Amphetamines Screen U Benzodiazepines Scrn Urine Cocaine Screen U Cannabinoids Screen Blood Type Antibody Screen Crossmatch A/P: 61 yo male who presented s/p fall with 3 Rib fractures with hematoma, persistent nausea with coffee-ground emesis and anemia. He has multiple co- morbidities and on Paradaxa BID for Afib (held on day of admission). 1. Coffee-ground emesis ~s/p EGD this morning with severe esophagitis of the mid and distal esophagus. No active bleeding seen. ~PPI BID x 6 weeks, then decrease to once daily while on Pradaxa. ~Keep HOB above 30 degrees at all times. ~Will need a repeat EGD in 6 weeks to checking for healing of esophagus due to severity of disease. ~Serum H.pylori ordered. ~Recommend holding Pradaxa for 3-5 days to allow for healing of esophagus. ~No NSAIDs. ~Advanced to clear liquid diet and may advance to cardiac diet if he tolerates clears. 2. Acute blood loss anemia s/p 1 unit of prbcs ~Stable hgb. ~No further episodes of bleeding. ~Continue to monitor Hgb. D/w Dr. Blount. Thank you for allowing us to participate in the care of your patient. If you should have any further questions please do not hesitate to contact us. Eva Urbano D.O.
[2017-01-12] MEDS ORDERED: Acetaminophen TAB* 325 MG ONE (14:11)
--- NOTE | 2017-01-12 15:13 | PN ---
PROGRESS NOTE: DATE OF ADMISSION: 01/11/17 DATE OF PROGRESS NOTE: 01/12/17 CURRENT LOCATION: The ICU, bed 12. SUBJECTIVE: Overnight he had no new issues. There has been no seizure activity reported. He is scheduled for an EGD today to look for the source of his bleeding. The nurse states that he has been stable and doing well overall. The patient is pleasant and well aware of this current condition. Officers are at the bedside. He is shackled at the feet. OBJECTIVE: Vital Signs: Blood pressure 95/51, pulse of 85, respiratory rate of 25, temp of 97.6. In general, he is a thin, well-developed gentleman in no acute distress, lying in his hospital bed. He is pleasant, well dressed, well groomed. HEENT: Normocephalic, atraumatic. Sclerae anicteric. Mucous membranes are moist. Oropharynx is clear. Neck is supple. No thyromegaly. No carotid bruits. Chest: Clear to auscultation bilaterally. Cardiovascular: Regular rate and rhythm. Abdomen: Nontender. Extremities: There is no clubbing, cyanosis or edema. Neurologic Exam: He is awake, alert, oriented x3. His speech is fluent. There is no dysarthria. Repetition is intact. Recall of recent and remote events is intact. Vocabulary is intact. His mood is dysthymic. Affect mood-congruent. Cranial nerves II through XII, he has a left homonymous hemianopsia and a right lower quadrant anopsia. His face shows some left nasolabial fold flattening. His sensation in the face is diminished on the left. Extraocular muscles are intact. Tongue is midline. His cranial nerves are otherwise intact. On motor exam, he has diminished movement in the left arm and leg with some spasticity. His movement on the right side is intact. Diminished light touch and pinprick on the left arm and leg. Hyperreflexic on the left arm and leg 3+. Toes are equivocal bilaterally. MEDICATIONS: He is currently on: 1. Tylenol. 2. Lanoxin. 3. Keppra 1500 mg at bedtime and 750 mg in the morning. 4. Lopressor. 5. Morphine for pain. 6. Zofran. 7. Zosyn. 8. Vancomycin. LABORATORY DATA: Lab work includes a white count of 4.4, hemoglobin of 8.8, hematocrit of 26, platelet count of 97. INR of 1.57. Anion gap of 21. Creatinine of 1.6, calcium of 7.2. ASSESSMENT AND PLAN: Mr. Erazo is a 61-year-old gentleman with a long history of multiple medical problems including strokes in the past, seen on CT scan here with encephalomalacia on the right frontal region and in the left parietal occipital lobe, as well as a small left frontal area of damage. 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 He has been on Keppra for some time. Attempt was made to obtain records but none had been received so far. Apparently, he was recently started on Trileptal as well, but noted side effects and has stopped that medication. He has been on Keppra 750 mg p.o. b.i.d. while in skilled nursing. At this point, his creatinine has improved and his renal function has improved. I do think he is currently on the appropriate dose of 750 in the morning and 1500 mg at night. I agree with Dr. Dinero to hold the Trileptal as he seemed to have multiple side effects from that medication. Decision whether he should be on dual therapy is something that could be decided as an outpatient. The patient states that he has been having about one seizure a month for 12 years and this is his baseline. I will continue to follow him closely. He is scheduled for an EGD today. I will make further recommendations as necessary. [id number]/[facility] #: [id number] [facility]ALTH SYSTEMGodfrey
[2017-01-12 16:25] VITALS: BP 118/54
[2017-01-12] MEDS ORDERED: Vancomycin(*) 1,000 MG in NS 0.9% 250 ML* 250 ML IVPB SCH (17:00)
[2017-01-12] MEDS ORDERED: Omeprazole CAP* 20 MG PO SCH (21:00)
--- NOTE | 2017-01-13 00:57 | PRO ---
CC: Dr. Serenity Will; Dr. Blount; Dr. Eva Urbano GASTROENTEROLOGY OPERATIVE REPORT: DATE OF PROCEDURE: 01/11/17 OPERATIVE PROCEDURE: Esophagogastroduodenoscopy to fourth portion of duodenum. SURGEON: Eva Urbano MD. ANESTHESIA: MAC. PREOPERATIVE DIAGNOSES: 1. Coffee-ground emesis. 2. Melena. 3. Anemia. HISTORY OF PRESENT ILLNESS: Ronald is a really pleasant 61-year-old gentleman with multiple comorbidities including atrial fibrillation, on Pradaxa therapy, who presented to the emergency room status post fall and noted to have 3 rib fractures with an associated hematoma along with anemia. He was admitted for further evaluation of these findings. Gastroenterology was consulted for episodes of coffee-ground emesis prior to arrival and anemia. He is s/p 1 unit of prbcs. POSTOPERATIVE DIAGNOSES: 1. LA grade D esophagitis of the mid and distal esophagus. 2. Minimal antral gastritis. 3. Large amount of liquids were seen in the stomach. Aggressive irrigation and suctioning was performed in order to prevent aspiration. 4. Normal duodenum to the fourth portion with normal papilla. 5. No active bleeding visualized. RECOMMENDATIONS: 1. May discontinue Protonix drip and start PPI therapy 40 mg twice daily for 6 weeks and then decrease to once daily while on Pradaxa therapy. 2. We will check his serum H. pylori antibody. 3. We will advance to clear liquids and if the patient tolerates may be advanced to a cardiac diet. 4. The patient will need a repeat endoscopy to check for healing of esophagus in 6 weeks. 5. Keep the head of the bed greater than 30 degrees at all times. 6. Avoid NSAID therapy. 7. Recommend holding Pradaxa therapy if possible for 3 to 5 days to allow for healing of esophagus. 8. Continue to monitor hemoglobin and signs of GI bleeding. 9. Further recommendations will be provided based on the patient's clinical progress. 10. EGD findings and recommendations were discussed with Dr. Blount. DESCRIPTION OF PROCEDURE: Esophagogastroduodenoscopy was explained in detail to the patient. The risks, benefits, complications, alternatives, and possibilities of missed lesions were explained and understood. Complications included, but were not limited to reaction to anesthesia, aspiration, increased risk of bleeding, and perforation. All questions were answered. The patient demonstrated understanding of the conversation. Informed consent was obtained. Next, the patient was brought to the operating room and placed in a supine position (due to rib fractures) where blood pressure, oxygen and cardiac monitors were applied. The patient was found to be a fit candidate for MAC anesthesia given his multiple comorbidities. After adequate sedation was achieved, a bite block was placed. Next, a standard adult Olympus endoscope was inserted per os under direct visualization to the fourth portion of the duodenum. The first, second, third, and fourth portions of the duodenum were grossly normal appearing. There were significant amount of liquids present. This was aggressively irrigated and suctioned in order to adequately visualize the mucosa. There was no active bleeding present. The papilla was also visualized and was normal appearing. The endoscope was further withdrawn into the gastric lumen where there was minimal erythematous changes consistent with mild gastritis. Biopsies were not obtained as the patient was on Pradaxa therapy at the time of endoscopy. On retroflexion, the patient had a normal sling. The endoscope was further withdrawn into the distal esophagus revealing severe esophagitis with ulcerations and exudates encompassing the entire circumference of the esophagus of the distal and mid esophagus. The proximal esophagus was very mildly ulcerated in a circumferential fashion. Again, biopsies were not performed due to severe esophagitis and patient being on Pradaxa therapy. Air was then removed from the patient. Endoscope was removed from the patient. The patient tolerated the procedure well. There were no immediate complications. After a period of observation, the patient was transferred back to the medical floor for further evaluation and care. Thank you, Dr. Blount, for allowing us to participate in the care of your patient. If you should have any further questions or concerns, please do not hesitate to contact us. [id number]/[facility] #: [id number] SEAN
--- NOTE | 2017-01-13 02:19 | DS ---
DISCHARGE SUMMARY: DATE OF ADMISSION: 01/11/17 DATE OF DISCHARGE: 01/12/17 HISTORY OF PRESENT ILLNESS: This 61-year-old man was admitted with nausea and vomiting and possible hematemesis that was described as black emesis, tested heme- positive in the emergency room. Previ ous value of hemoglobin in our records was 10.4, on arrival here it was 9.7. This may reflect of so me dehydration as well. He was given intravenous fluids. His hemoglobin fell to 8.3. He was given a unit of packed cells. On the day of discharge, his hemoglobin was 8.8. He had no more emesis her e in the hospital. On the day of discharge, he underwent endoscopy, which showed a severe esophagitis. It was recommend ed that he take PPI twice daily for 2 months and then once daily. He can follow up with the GI docto rs here in 3 or 4 weeks. I recommended to have a repeat laboratory testing with CBC and BMP in abou t 5 or 6 days. FINAL DIAGNOSES: 1. Severe esophagitis with history of bleeding. No active bleeding at endoscopy. 2. Seizure disorder. 3. Coronary artery disease. 4. Atrial fibrillation. 5. Renal insufficiency. 6. Anemia. His Pradaxa can be restarted after his lab work confirms that he is stable. His dose is 1 tablet tw ice a day, I am not sure of the dosage, it may need to be adjusted for renal insufficiency if this i s persistent. DISCHARGE MEDICATIONS: 1. Omeprazole 20 mg b.i.d. for 2 months and once daily. 2. Torsemide 40 mg daily. 3. Levetiracetam 750 mg b.i.d. 4. Metoprolol tartrate 50 mg b.i.d. 5. Docusate 200 mg daily. 6. Cholestyramine Light 4 g b.i.d. 7. Spironolactone 25 mg daily. 8. Potassium chloride 8 mEq twice daily. 9. Magnesium oxide 400 mg t.i.d. 10. Ferrous sulfate 325 mg h.s. 11. Digoxin 0.125 mg daily. 12. Oxcarbazepine 600 mg b.i.d. 13. Lactase 9000 units t.i.d. 14. Cholecalciferol 2000 units daily. As mentioned above, dabigatran can be restarted at its usual dosage after his lab work. He should h ave a CBC and basic metabolic profile in about 5 to 6 days. [id number]/[facility] #: [id number]
[2017-01-14] MEDS ORDERED: Vancomycin Trough Check NOTE FOLLOW UP ONE (16:30)
== END 2017-01-12 16:43 ==
LOC: ED 10:30 → INTOOBSV 12:39 → EEVIPCON 12:39 → ICU 12:39 → MEDTELE 01-12 08:27 → ICU 01-12 12:39
PROVIDERS: ADMIT Internal Medicine; ATTEND Internal Medicine
DX: K20.9 Esophagitis, unspecified (principal); K22.8 Other specified diseases of esophagus; K29.70 Gastritis, unspecified, without bleeding; G40.909 Epilepsy, unspecified, not intractable, without status epilepticus; I25.10 Atherosclerotic heart disease of native coronary artery without angina pectoris; I48.91 Unspecified atrial fibrillation; N28.9 Disorder of kidney and ureter, unspecified; D64.9 Anemia, unspecified; Z87.891 Personal history of nicotine dependence; Z86.73 Personal history of transient ischemic attack (TIA), and cerebral infarction without residual deficits; K92.1 Melena; G93.89 Other specified disorders of brain; S22.42XA Multiple fractures of ribs, left side, initial encounter for closed fracture; X58.XXXA Exposure to other specified factors, initial encounter; N20.0 Calculus of kidney; K50.90 Crohn's disease, unspecified, without complications
CPT/HCPCS: 36415; 70450; 71260; 74177; 80048; 80053; 80162; 80177; 80307; 80320; 81003; 81015; 82272; 82550; 82570; 83605; 84300; 84484; 85014; 85018; 85025; 85060; 85610; 86850; 86900; 86901; 86922; 87040; 87077; 87150; 87186; 87205; 87641; 90686; 93005; 93306; 96374; 96375; 99285; A9270-GY; G0378; G0480; J2250; J2270; J2405; J2543; J2704; J3010; J3370; P9040; Q9967

== ENCOUNTER 2018-10-09 14:57 | Inpatient (IN) | payer MEDICAID, OTHER ==
[2018-10-09] MEDS ORDERED: Ondansetron INJ* 2 MG/ML VIAL IV ONE (15:08)
[2018-10-09] MEDS ORDERED: NS 0.9% 1000 ML** 1,000 ML IV ONE ×2 (15:08→15:25)
--- NOTE | 2018-10-09 15:11 | ED ---
Neurological HPI - HPI Summary HPI Summary: The patient is a 63 y/o M arriving by ambulance to [facility] with a chief complaint of sudden onset seizure this afternoon. Per EMS from witness report, the patient 's seizure lasted for 3-4 minutes. In the ambulance, the patient's vitals were stable at: 100.8F (fever), 114/60 BP, 140BPM HR, 30RPM RR, O2 sat of 98%, but he had been hypotensive upon arrival. He reports that he also has had diarrhea with loose stools, left-sided abdominal pain, and GILL on the left temporal side. He denies chills, erythema of eyes, sore throat, CP, SOB, cough, N/V, dysuria, hematuria, myalgia, edema, rash, or dizziness. He is not currently in pain. There are no aggravating or alleviating factors. Hx of anemia, angina, cardiac arrest, cardiomegaly, CHF, endocarditis, PNA, Chrohns disease, ulcer, kidney infection, kidney stones, seizures (medicated), TIA. Surgical hx of mitral valve replacement, brain surgery, multiple gastrointestinal surgeries including appendectomy and cholecystectomy. Former smoker, no EtOH, no substance use. - History of Current Complaint Stated Complaint: SEIZURE PER EMS Time Seen by Provider: 10/09/18 14:58 Hx Obtained From: Patient, EMS Onset/Duration: Sudden Onset, Started minutes ago, Resolved Timing: Sudden Onset Onset Severity: Moderate Current Severity: Mild Seizure Severity: Moderate Number of Seizures: 1 - lasting 3-4 minutes Headache Location: Temporal (Left) Pain Intensity: 0 Pain Scale Used: 0-10 Numeric Character: Other: - seizure-activity Seizure Character: Generalized Aggravating: Nothing Alleviating: Nothing Associated Signs and Symptoms: Positive: Headache - left temporal, Seizure, Fever - 100.8F, Diarrhea. Negative: Dizziness, Nausea/Vomiting, Chest Pain, Shortness of Breath Related Hx: Seizure - Additional Pertinent History Primary Care Physician: ERON - Allergy/Home Medications Allergies/Adverse Reactions: Allergies Allergy/AdvReac Type Severity Reaction Status Date / Time haloperidol [From Haldol] Allergy Hallucinati Verified 10/09/18 15:06 ons Home Medications: Home Medications Atorvastatin* [Lipitor*] 10 mg PO QPM 10/09/18 [History Confirmed 10/09/18] DULoxetine CAP* [Cymbalta CAP*] 30 mg PO DAILY 10/09/18 [History Confirmed ] Dabigatran CAP(NF) [Pradaxa CAP(NF)] 150 mg PO BID 10/09/18 [History Confirmed 10/09/18] Divalproex Sodium [Depakote] 750 mg PO BID 10/09/18 [History Confirmed 10/09/18] Pantoprazole TAB * [Protonix TAB*] 40 mg PO BID 10/09/18 [History Confirmed 02/17] Spironolactone TAB* [Aldactone TAB*] 25 mg PO DAILY 10/09/18 [History Confirmed 10/09/18] Titralac 2 tab PO TID PRN 10/09/18 [History Confirmed 10/09/18] levETIRAcetam TAB* [Keppra TAB*] 1,000 mg PO QAM 10/09/18 [History Confirmed 02/17] levETIRAcetam TAB* [Keppra TAB*] 750 mg PO QPM 10/09/18 [History Confirmed 10/09] PMH/Surg Hx/FS Hx/Imm Hx Endocrine/Hematology History: Reports: Hx Anticoagulant Therapy - pradaxa for heart valve replacement, Hx Anemia Denies: Hx Blood Transfusions - not in past 90 days, Hx Unexplained Bleeding Cardiovascular History: Reports: Hx Aneurysm - 94, Hx Angina, Hx Cardiac Arrest , Hx Cardiomegaly, Hx Congenital Heart Disease - mitral valve, repair or replaced '66, Hx Congestive Heart Failure, Hx Valvular Heart Disease - repalced d/t endocarditis complications - on pradaxa Denies: Hx Angioplasty, Hx Auto Implanted Cardiovert Defib, Hx Coronary Artery Disease, Hx Deep Vein Thrombosis, Hx Pacemaker/ICD, Hx Peripheral Vascular Disease, Hx Rheumatic Fever Respiratory History: Reports: Hx Pneumonia, Hx Sleep Apnea Denies: Hx Chronic Obstructive Pulmonary Disease (COPD), Hx Lung Cancer, Hx Pleural Effusion GI History: Reports: Hx Crohn's Disease - bowel resections, Hx Ulcer History: Reports: Hx Kidney Infection, Hx Kidney Stones Sensory History: Reports: Hx Contacts or Glasses Denies: Hx Hearing Aid Opthamlomology History: Reports: Hx Contacts or Glasses Neurological History: Reports: Hx Seizures - on meds, Hx Transient Ischemic Attacks (TIA), Other Neuro Impairments/Disorders - Lt sided hemiplegia - Surgical History Surgery Procedure, Year, and Place: CARDIAC SURGERY, BRAIN SX. MULTIPLE GASTROINTESTINAL SX, APPENDECTOMY, CHOLECYSTECTOMY Infectious Disease History: Denies: Hx Tuberculosis - Family History Known Family History: Positive: Cardiac Disease - Social History Alcohol Use: None Hx Substance Use: No Substance Use Type: Reports: None Hx Tobacco Use: Yes Smoking Status (MU): Former Smoker Review of Systems Positive: Fever - 100.8F. Negative: Chills Negative: Erythema Negative: Sore Throat Negative: Chest Pain Negative: Shortness Of Breath, Cough Positive: Abdominal Pain - left-sided, Diarrhea. Negative: Vomiting, Nausea Negative: dysuria, hematuria Negative: Myalgia, Edema Negative: Rash Neurological: Other - NEGATIVE: dizziness Positive: Headache - left-sided All Other Systems Reviewed And Are Negative: Yes Physical Exam - Summary Physical Exam Summary: Constitutional: Well-developed, Well-nourished, Alert. (-) Distressed Skin: Warm, Dry HENT: Dry oral mucosas. Normocephalic; Atraumatic Eyes: Conjunctiva normal Neck: Musculoskeletal ROM normal neck. (-) JVD, (-) Stridor, (-) Tracheal deviation Cardio: Rhythm regular, rate normal, Heart sounds normal; Intact distal pulses; The pedal pulses are 2+ and symmetric. Radial pulses are 2+ and symmetric. (-) Murmur Pulmonary/Chest wall: Effort normal. (-) Respiratory distress, (-) Wheezes, (-) Rales Abd: Soft, (-) tenderness, (-) Distension, (-) Guarding, (-) Rebound Musculoskeletal: (-) Edema Lymph: (-) Cervical adenopathy Neuro: Alert, Oriented x3. No signs of postictal state. Psych: Mood and affect Normal GCS: 15 Triage Information Reviewed: Yes Vital Signs Reviewed: Yes - Chris Coma Scale Best Eye Response: 4 - Spontaneous Best Motor Response: 6 - Obeys Commands Best Verbal Response: 5 - Oriented Coma Scale Total: 15 Diagnostics - Laboratory Result Diagrams: 10/23/18 03:25 10/23/18 03:25 Lab Statement: Any lab studies that have been ordered have been reviewed, and results considered in the medical decision making process. - CT Brain CT CT Interpretation Completed By: Radiologist Summary of CT Findings: Impression: Ex vacuo dilatation of the right lateral ventricle with encephalomalacia in the right frontal parietal lobe and left occipital lobe unchanged from previous exam. ED physician has reviewed this radiology report. Abd/Pel CT CT Interpretation Completed By: Radiologist Summary of CT Findings: Impression: Splenomegaly. Left hydronephrosis is noted with a 1.2 cm calculus in the proximal left ureter. This is at the level of L4. Atrophic right kidney. Right adrenal mass is unchanged from prior exam. ED physician has reviewed this radiology report. - EKG 1510 Cardiac Rate: Other Rate - 136 BPM EKG Rhythm: Atrial Fibrillation Summary of EKG Findings: Atrial fibrillation at 136 BPM with RVR. No STEMI. Re-Evaluation - Re-Evaluation First Eval Re-Evaluation Time: 15:35 Comment: The patient had a seizure-like episode lasting 15-20 seconds. BP is stable and HR is tachycardic. Course/Dx - Course Course Of Treatment: The patient is a 63 y/o M arriving by ambulance to [facility] with a chief complaint of sudden onset seizure this afternoon lasting 3-4 minutes as witness. In the ambulance, the patient had a fever of 100.8F and hypotension. He reports that he also has had diarrhea with loose stools, left- sided abdominal pain, and GILL on the left temporal side. He denies chills, erythema of eyes, sore throat, CP, SOB, cough, N/V, dysuria, hematuria, myalgia , edema, rash, or dizziness. Hx of anemia, angina, cardiac arrest, cardiomegaly , CHF, endocarditis, PNA, Chrohns disease, ulcer, kidney infection, kidney stones, seizures (medicated), TIA. Surgical hx of mitral valve replacement, brain surgery, multiple gastrointestinal surgeries including appendectomy and cholecystectomy. Upon physical exam, the patient exhibits dry oral mucosas, no sign of postictal state. Based on the hypotension in ambulance, the patient may have had a syncopal episode, given there are no current postictal signs. His current symptoms could be prolonged for syncope. In the ED course, the patient was administered 2500mL Ns, Zosyn, Praxbind, and Zofran. Blood work reveals WBCs of 21.5, RBCs of 2.90, Hgb of 8.8, Hct of 26, RDW of 16, plt count of 65, abs neuts of 20.2, abs lymphs of 0.3, abs basos of 0.3, INR of 1.70, sodium of 132, potassium of 3.3, carbon dioxide of 16, anion gap of 13, BUN of 57, creatinine of 3.02, glucose of 148, magnesium of 1.1, and total protein of 6.3. UA reveals 2+ protein, 2+ blood, 3+ leukocyte esterase, 3+ WBCs, 3+ RBCs, and 1 + bacteria. Toxicology report reveals digoxin of 0.6. At 1535, nurse Jennifer reports a seizure lasting 15-20 seconds; vitals are stable with tachycardia in 120s. I will order 1g Keppra for the patient. EKG reveals Afib at 136 BPM with RVR, no STEMI. Brain CT Impression: Ex vacuo dilatation of the right lateral ventricle with encephalomalacia in the right frontal parietal lobe and left occipital lobe unchanged from previous exam. Abd/Pel CT Impression: Splenomegaly. Left hydronephrosis is noted with a 1.2 cm calculus in the proximal left ureter. This is at the level of L4. Atrophic right kidney. Right adrenal mass is unchanged from prior exam. At 1800, I discussed the patients case with Dr. Girard, urology. He will come see the patient in the ED. He suggests nephrostomy tube placement but the patient cannot be taken to the operating room now because he had a seizure today. I spoke with Dr. Zhu, radiology, at 181; he is not houseperson right now, so I will get in touch with Dr. Elder. At 181, I spoke with Dr. Elder, radiology, and he states he will come to the ED to place the nephrostomy tube in IR. At 181, I discussed the case with Dr. Will, hospitalist, and she accepts the patient for admission. He is diagnosed with breakthrough seizure, sepsis, obstructive uropathy, and acute renal failure secondary to obstructive uropathy. - Diagnoses Provider Diagnoses: Breakthrough seizure, Sepsis, Obstructive uropathy, Acute renal failure - Physician Notifications Discussed Care Of Patient With: Lex Girard - urology Time Discussed With Above Provider: 18:00 Instructed by Provider To: Other - At 1800, I discussed the patients case with Dr. Girard, urology. He will come see the patient in the ED. He suggests nephrostomy tube placement but the patient cannot be taken to the operating room now because he had a seizure today. I spoke with Dr. Zhu, radiology, at 1809; he is not houseperson right now, so I will get in touch with Dr. Elder. At 1814, I spoke with Dr. Elder, radiology, and he states he will come to the ED to place the nephrostomy tube in IR. At 1817, I discussed the case with Dr. Will , hospitalist, and she accepts the patient for admission. Discharge - Sign-Out/Discharge Documenting (check all that apply): Patient Departure - [place] [facility] [place] care by Dr. Will. Patient Received Moderate/Deep Sedation with Procedure: No - Discharge Plan Condition: Stable Disposition: ADMITTED TO [facility] - Billing Disposition and Condition Condition: STABLE Disposition: Admitted to [facility] - Attestation Statements Document Initiated by Anthonyibe: Yes Documenting Scribe: Mariana Yu Provider For Whom Scribe is Documenting (Include Credential): Dr. Khang Mccarthy MD Scribe Attestation: IMariana, scribed for Dr. Khang Mccarthy MD on 10/23/18 at 0826. Scribe Documentation Reviewed: Yes Provider Attestation: The documentation as recorded by the Mariana hameed accurately reflects the service I personally performed and the decisions made by me, Dr. Khang Mccarthy MD Status of Scribe Document: Viewed
[2018-10-09] MEDS ORDERED: levETIRAcetam 1000MG IVPREMIX* 1,000 MG/100 ML BAG IVPB ONE (15:25)
[2018-10-09 15:43] LABS: Hematocrit 26 % (42-52); Hemoglobin 8.8 g/dL (14.0-18.0); Mean Corpuscular HGB Conc 34 g/dL (31-36); Mean Corpuscular Hemoglobin 30 pg (27-31); Mean Corpuscular Volume 88 fL (80-94); Platelet Count 65 10^3/uL (150-450); Red Cell Distribution Width 16 % (10-15); White Blood Count 21.5 10^3/uL (3.5-10.8)
[2018-10-09 15:48] LABS: INR 1.7 (0.82-1.09)
[2018-10-09 16:02] LABS: ALT 22 U/L (7-52); AST 32 U/L (13-39); Albumin 3.4 g/dL (3.2-5.2); Albumin/Globulin Ratio 1.2 (1-3); Alkaline Phosphatase 90 U/L (34-104); Anion Gap 13 mmol/L (2-11); BUN/Creatinine Ratio 18.9 (8-20); Blood Urea Nitrogen 57 mg/dL (6-24); CO2 Carbon Dioxide 16 mmol/L (22-32); Calcium 8.7 mg/dL (8.6-10.3); Chloride 103 mmol/L (101-111); EGFR African American 25.7 (>60); EGFR Non-African American 21.2 (>60); Globulin 2.9 g/dL (2-4); Glucose 148 mg/dL (70-100); Magnesium 1.1 mg/dL (1.9-2.7); Potassium 3.3 mmol/L (3.5-5.0); Sodium 132 mmol/L (135-145); Total Protein 6.3 g/dL (6.4-8.9)
[2018-10-09 16:07] LABS: Digoxin 0.6 ng/ml (0.8-2.0)
[2018-10-09 16:09] LABS: ABS Basophils 0.3 10^3/ul (0-0.2); ABS Lymphocytes 0.3 10^3/ul (1.0-4.8); ABS Monocytes 0.6 10^3/ul (0-0.8); ABS Neutrophils 20.2 10^3/ul (1.5-7.7); Lymphocyte % 1.6 %
[2018-10-09] MEDS ORDERED: Piperacillin/Tazobac ADVAN(*) 3.375 GM in NS 0.9% 100 ML* 100 ML IVPB ONE (17:17)
[2018-10-09] MEDS ORDERED: NS 0.9% 500 ML* 500 ML IV ONE (17:19)
[2018-10-09 17:21] LABS: Urine Appearance Turbid; Urine Bacteria 1+ (Absent); Urine Bilirubin Negative (Negative); Urine Blood 2+ (Negative); Urine Color Amber; Urine Glucose Negative (Negative); Urine Ketones Negative (Negative); Urine Nitrite Negative (Negative); Urine Protein 2+(100 mg/dL) (Negative); Urine Red Blood Cell 3+(>10/hpf) (Absent); Urine Specific Gravity 1.013 (1.010-1.030); Urine Urobilinogen Negative (Negative); Urine White Blood Cell 3+(>20/hpf) (Absent)
[2018-10-09] MEDS ORDERED: Piperacillin/Tazobac (*) 3.375 GM BAG ONE (17:25)
[2018-10-09] MEDS ORDERED: IDARUCIZUMAB* 2.5 GM/50 ML VIAL IV ONE (18:28)
--- NOTE | 2018-10-09 19:29 | CONS ---
UROLOGY CONSULTATION: DATE OF CONSULT: 10/09/18 REQUESTING PHYSICIAN: Khang Mccarthy MD. DIAGNOSES: 1. Left hydronephrosis. 2. Obstructing calculus, left proximal ureter. 3. Urosepsis. HISTORY OF PRESENT ILLNESS: Ronald Erazo is a 63-year-old gentleman with a history of recurrent renal calculi who was actually brought to the hospital because of recent seizure disorder. He reportedly had a seizure at the correctional facility last night and another seizure while in the emergency room here today. During the workup, he was noted to have a 1.2 cm calculus in the left proximal ureter and was noted to be tachycardic with low-grade fever and an elevated white blood cell count. Review of his labs reveals a white count of 21.5, hemoglobin and hematocrit are 8.8 and 26, respectively, with a platelet count of 65,000. Sodium is 132, potassium is 3.3, BUN and creatinine are 57 and 3.0 with a glucose of 148. Urinalysis shows 2+ protein, 2+ blood, 3+ leukocyte esterase, and 1+ bacteria. I reviewed the CT scan, which reveals an approximately 11 to 12 mm calculus in the proximal left ureter with left hydronephrosis and also reveals what appears to an atrophic right kidney. ASSESSMENT AND PLAN: I had a detailed discussion with the patient and with Dr. Mccarthy regarding the optimal management for this patient. Since he has had a recent seizure, I do not think that taking him to the operating room under general or spinal anesthesia would be an ideal choice. The optimal management would probably be a left percutaneous nephrostomy placement; however, given his low platelet count, I think he may require platelet infusion prior to the nephrostomy tube placement. I discussed this with Dr. Mccarthy and a decision will be made depending on whether or not platelets are available for infusion here to be followed by left nephrostomy tube insertion or whether he would require transfer to an outside facility for platelets followed by left nephrostomy tube. [id number]/[facility] #: [id number] [facility]
[2018-10-09] MEDS ORDERED: Magnesium Sulf 4 GM/100 ML IV* 4,000 MG/100 ML BAG IVPB ONE (19:48)
[2018-10-09] MEDS ORDERED: Acetaminophen SUPP* 650 MG SUPP PR ONE (19:51)
[2018-10-09] MEDS ORDERED: Ondansetron INJ* 2 MG/ML VIAL IV PRN (20:20)
[2018-10-09] MEDS ORDERED: fentaNYL* 50 MCG/ML 2 ML VIAL (100 MCG VIAL) ONE (20:56)
[2018-10-09] MEDS ORDERED: fentaNYL* 50 MCG/ML 5 ML VIAL (250 MCG VIAL) ONE (20:57)
[2018-10-09] MEDS ORDERED: Naloxone* 0.4 MG/ML 1 ML VIAL ONE (20:57)
[2018-10-09] MEDS ORDERED: Zosyn per Pharmacy* NOTE FOLLOW UP SCH (21:00)
[2018-10-09] MEDS: Pantoprazole TAB * 40 MG TAB PO SCH (22:53)
[2018-10-09] MEDS: NS 0.9% w/ 20 Meq KCL 1000 ML* 1,000 ML IV SCH (22:53)
[2018-10-09] MEDS: ZOSYN 3.375 GM Q8H per EXTENDED INFUSION IVPB SCH ×2 (23:42)
[2018-10-10] MEDS: Divalproex DR TAB(*) 250 MG PO SCH ×3 (01:06→22:59)
--- NOTE | 2018-10-10 03:00 | HP ---
CC: [facility] * HISTORY AND PHYSICAL: DATE OF ADMISSION: 10/09/18 PROVIDER: Digna Sigala NP PRIMARY CARE PROVIDER: [facility]. ATTENDING PHYSICIAN WHILE IN THE HOSPITAL: Mc Persaud MD * (dictated by Digna Sigala NP) CHIEF COMPLAINT: 1. Seizures. 2. Abdominal pain. 3. Fever. HISTORY OF PRESENT ILLNESS: Mr. Erazo is a 63-year-old male with a very complex medical history. 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 The patient reports that he has had increased seizures for the past month. He also reports that he has had episodes of vomiting x2 days, but on and off for a month. The patient reports that he has been having difficulty tolerating solid foods and that at times he does vomit his medications. He does report that his fevers started today. He complains of left-sided flank pain. He denies any chest pain or edema, cough, hemoptysis. He does report some shortness of breath. Reports nausea and vomiting. He does report 2 episodes of diarrhea today. Denies any abdominal pain. Denies any gross hematuria or dysuria. He does report frequency x1 month , but no pain with urination. He denies any focal weakness or sensory loss, visual complaints, dysphagia, arthralgias, myalgias, rashes, lesions, or open sores. Denies any psychosis or anxiety. I did contact [facility] who reports that the patient has had sick call on 09/09/18 for reported unwitnessed seizure, as well as on 10/07/18 for an unwitnessed seizure and again today, 10/09/18, where he had a witnessed seizure. The [facility] reports that there was no other emergency sick calls documented for vomiting or any other medical symptoms. While in the emergency room, the patient was found to be febrile. He had leukocytosis with a white count of 21.[address] of the abdomen and pelvis, which showed left hydronephrosis with obstructing renal calculi. Dr. Girard from Urology was contacted and recommended a nephrostomy tube. Dr. Elder from IR came and placed a left nephrostomy tube. Due to his findings of sepsis and obstructing renal stones, we were asked to see and evaluate the patient for admission. PAST MEDICAL HISTORY: Significant for: 1. Coronary artery disease. 2. Hyperlipidemia. 3. Seizures. 4. 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 5. History of stroke. 6. History of endocarditis. 7. History of ITP. 8. History of atrial fibrillation. 9. History of ND. 10. History of congestive heart failure. PAST SURGICAL HISTORY: 1. Open heart surgery twice, first in 1965 and repeat surgery in 1984. 2. Numerous cardiac catheterizations for valve repair. 3. The patient reports multiple bowel resections. MEDICATIONS: Home medications include: (medication list obtained from [facility] nurse at [facility]) 1. Protonix 40 mg p.o. b.i.d. 2. Magnesium oxide 400 mg p.o. b.i.d. 3. Cymbalta 30 mg p.o. daily. 4. Depakote 750 mg p.o. b.i.d. 5. Keppra 1000 mg in the a.m., 750 mg in the p.m. 6. Lopressor 50 mg p.o. b.i.d. 7. Digoxin 0.125 mg daily. 8. Lipitor 10 mg daily. 9. Aldactone 25 mg p.o. daily. 10. Torsemide 40 mg p.o. daily. 11. Pradaxa 150 mg p.o. b.i.d. 12. Ferrous sulfate 650 mg daily. 13. Titralac 420 mg two tablets t.i.d. as needed. ALLERGIES: He has allergy to HALDOL. FAMILY HISTORY: Father had MS. Mother with diabetes. 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 Currently, resides at [facility]. Surrogate decision maker is [facility]. REVIEW OF SYSTEMS: A 11-point review of systems was completed. All pertinent positives were mentioned in the HPI. PHYSICAL EXAMINATION GENERAL: At this time, Mr. Erazo is a 63-year-old male. He is chronically ill appearing, resting on the stretcher in the emergency room. He is tachypneic and tachycardic. Skin is warm to touch. VITAL SIGNS: Blood pressure 103/55, temperature was 102.4 rectally in the emergency room, blood pressure 114/54, heart rate 120, respirations are 14, O2 saturation 98% on room air. HEENT: Head is atraumatic, normocephalic. Eyes: EOMs are intact. Sclerae anicteric and not pale. Oral mucosa appears to be dry. No oropharyngeal erythema. NECK: Supple. LUNGS: Clear to auscultation bilaterally. No wheezes, rales, or rhonchi. CARDIAC: S1, S2. Heart is irregular and tachycardiac with occasional PVC. No rubs or gallops. He does have a murmur. ABDOMEN: Soft and nontender. Bowel sounds are present x4. He does have bilateral CVA tenderness with palpation. EXTREMITIES: Pedal pulses are +2. There is no peripheral edema. NEUROLOGIC: He is awake, alert, oriented x3. Tongue is midline. Speech is clear. There are no gross focal deficits. SKIN: Intact. LABORATORY DATA AND DIAGNOSTIC STUDIES: WBCs are 21.5, RBCs 2.90, hemoglobin 8.8, hematocrit was 26, platelet count was 65. INR was 1.70. Sodium 132, potassium 3.3, chloride 103, carbon dioxide 16, anion gap was 13, BUN was 57, creatinine 3.02, glucose was 148. Lactic acid 1.5. Calcium 8.7, magnesium 1.1. T bili was 0.90, ASTs were 32, ALTs were 22, alkaline phosphatase was 90. Urine was elder, turbid, pH was 5.0, specific gravity 1.013, urine protein was 2+, ketones were negative, blood was 2+, nitrites were negative, bilirubin, urobilinogen were all negative, leukocyte esterase was 3+, wbc's were 3+, rbc's 3+, bacteria was 1+, glucose was negative. Digoxin level 0.6. He had a CT of the brain, radiologist's impression: Ex-vacuo dilation of the right lateral ventricle with encephalomalacia in the right frontal lobe and left occipital lobe, unchanged from previous exam. He had a CT of the abdomen and pelvis, radiologist's impression: Splenomegaly, left hydronephrosis is noted with 1.2 cm calculi in the proximal left ureter, this is at the level of T4 atrophic right kidney, right adrenal mass is unchanged from prior exam. He had an electrocardiogram, which showed atrial fibrillation at a rate of 136, he does have ST depressions in V2 and V3, which appeared to be consistent to previous EKG dated 2017. ASSESSMENT AND PLAN: Mr. Erazo is a 63-year-old male with complex medical history who presented to the emergency room with complaints of vomiting on and off, abdominal pain, fever, and two seizures, found to meet sepsis criteria with obstructing renal calculi, urosepsis. He will be admitted inpatient to the ICU for: 1. Sepsis. The patient meets sepsis criteria with tachycardia, tachypnea, and elevated white count of 22.5 with known source of urinary tract infection, fever 102.4. Given these findings, the patient was given fluid bolusing in the emergency room of a total of 2500 cc. He was given a dose of Zosyn. I will continue him on Zosyn IV as per pharmacy protocol. Blood cultures are currently pending. Urine culture is also currently pending. I will continue him on IV fluids Normal saline with 20 meq of potassium at 100 cc per hour. He will also go to the OR this evening to have a left nephrostomy tube placed as per recommendations of Dr. Girard. Dr. Elder from will be placing the nephrostomy tube. 2. Left hydronephrosis with obstructive renal calculi. The patient will have a left nephrostomy tube placed. He was seen in consultation with Dr. Girard in the emergency room. Procedure will be completed this evening. I will continue him on Zosyn 3.375 g q.8 hours as per pharmacy's recommendation. He does currently have an MAUREEN related to the obstructing stone and underlying urinary infection. 3. Metabolic acidosis. The patient does have metabolic acidosis. Suspect this is related to underlying infection and MAUREEN from obstructing calculi. Patient is to have a neph tube placed this evening. Repeat his CBC, BMP, and mag in the a.m. I ordered an ABG that is currently pending. 4. Seizures. The patient does have a history of seizures. He had 2 seizures today. These are likely provoked due to underlying urosepsis. The patient does take Depakote 750 mg p.o. b.i.d. We will continue his Depakote. He did receive a 1000 mg of Keppra in the emergency room. We will continue his Keppra at 1000 mg in the morning, 750 in the p.m. 5. Atrial fibrillation. The patient does have a history of atrial fibrillation. He currently takes digoxin 0.125 mg p.o. daily and metoprolol 50 mg p.o. b.i.d. We will continue these medications. His Pradaxa was held this evening to have his nephrostomy tube placed; we will resume when able. 6. Coronary artery disease. The patient does have a history of coronary artery disease and multivalvular disease and we are going to hold his Aldactone and torsemide at this time as the patient is meeting sepsis criteria. 7. Hypomagnesemia. The patient has a low magnesium level of 1.1. I will give him 4 g of mag and repeat a mag level in the a.m. 8. Idiopathic Thrombocytopenia. His platelet count is 65. We will repeat his CBC in the a.m. I have ordered 1 unit of platelets due to his low platelet count and needing a nephrostomy tube. 9. FEN: He can have a clear liquid diet. 10. Code status: He is a full code. 11. DVT prophylaxis: He does currently take Pradaxa, which is on hold. TIME SPENT: Time spent on this admission was approximately 60 minutes, greater than half the time was spent at the bedside reviewing events leading thus far to his hospitalization, performing physical exam, and reviewing my plan of care. I have discussed this with my attending, Dr. Mc Persaud, he is in agreement with my plan. DIGNA SIGALA, BRIM BLOCKER [id number]/CPS #: [id number] SEAN
[2018-10-10] MEDS: Morphine 4 MG/ML VIAL (1 ml) 4 MG/ML VIAL IV PRN ×2 (04:19→08:20)
[2018-10-10 04:52] LABS: INR 1.15 (0.82-1.09)
[2018-10-10 04:54] LABS: Hematocrit 24 % (42-52); Hemoglobin 8.1 g/dL (14.0-18.0); Mean Corpuscular HGB Conc 34 g/dL (31-36); Mean Corpuscular Hemoglobin 31 pg (27-31); Mean Corpuscular Volume 89 fL (80-94); Mean Platelet Volume 9.1 fL (7.4-10.4); Platelet Count 51 10^3/uL (150-450); Red Blood Count 2.64 10^6 /uL (4.18-5.48); Red Cell Distribution Width 16 % (10-15); White Blood Count 17.5 10^3/uL (3.5-10.8)
[2018-10-10 05:14] LABS: BUN/Creatinine Ratio 19.8 (8-20); Calcium 7.8 mg/dL (8.6-10.3); EGFR African American 29.5 (>60); EGFR Non-African American 24.4 (>60); Magnesium 2.6 mg/dL (1.9-2.7); Potassium 3.6 mmol/L (3.5-5.0)
[2018-10-10 05:29] LABS: ABS Basophils 0.1 10^3/ul (0-0.2); ABS Eosinophils 0.1 10^3/ul (0-0.6); ABS Lymphocytes 0.5 10^3/ul (1.0-4.8); ABS Monocytes 0.7 10^3/ul (0-0.8); ABS Neutrophils 16.1 10^3/ul (1.5-7.7); Eosinophil % 0.8 %
[2018-10-10] MEDS: ZOSYN 3.375 GM Q8H per EXTENDED INFUSION IVPB SCH ×4 (07:59→15:42)
[2018-10-10] MEDS: DULoxetine DR CAP* 30 MG CAP.DR PO SCH (08:00)
[2018-10-10] MEDS: Digoxin TAB* 0.125 MG PO SCH (08:00)
[2018-10-10] MEDS: Pantoprazole TAB * 40 MG TAB PO SCH ×2 (08:01→22:59)
[2018-10-10] MEDS: levETIRAcetam TAB* 500 MG PO SCH (08:02)
[2018-10-10] MEDS ORDERED: levETIRAcetam TAB* 500 MG PO SCH ×2 (09:00→18:00)
[2018-10-10] MEDS: NS 0.9% w/ 20 Meq KCL 1000 ML* 1,000 ML IV SCH (12:05)
[2018-10-10] MEDS ORDERED: Lactated Ringers 1000 ML Bag* 1,000 ML IV ONE (14:00)
[2018-10-10] MEDS: Heparin VIAL(*) 5000 UNITS/ML VIAL (FIVE THOUSAND) SUBCUT SCH (15:42)
--- NOTE | 2018-10-10 15:59 | PN ---
Date of Service: 10/10/18 - CONSULT Critical Care Services: 63 yo M with PMH including CAD, CHF, TIA, seizures, kidney stones, chronic renal insuffiency, chronic anemia and afib. He presented to the ED on 10/09 after a witnessed seizure at the long-term in which he resides. On EMS evaluation found to be febrile to 100.8, tachycardic to 140 and hypotensive. Patient reported diarrhea, left sided abdominal painand headache. On physical exam in the ED he was noted to have dry mucus membranes but exam otherwise unremarkable. WBC 21.5, creatinine 3.02. CT brain negative for acute pathology. CT abdomen shows left hydronephrosis with obstructing kidney stone. Bolused IVF for sepsis and started on Zosyn for broadspectrum abx. Given Praxbind for reversal of Pradaxa. Urology consulted and recommended IR for nehrostomy tube placement. IR nephrostomy done that evening and subsequently admitted to ICU on the hospitalist service. 10/10: Remains tachycardic with soft blood pressures. Urine appearance clearing up, WBC improving. Vital Signs: Temp Pulse Resp BP SpO2 FiO2 97.6 F 123 22 101/47 95 10/10/18 08:00 10/10/18 11:00 10/10/18 11:00 10/10/18 11:00 10/10/18 11:00 Physical Exam: Gen: resting comfortably HEENT: moist mucus membranes Lungs: CTAB Cardiac: tachycardic. Afib on monitor Abdomen: soft NTND Extremities: warm, dry Neuro: repetitive speech. alert. Fluid Balance (Past 24 Hours): I= O= Net Intake & Output 10/08/18 10/09/18 10/10/18 10/11/18 06:59 06:59 06:59 06:59 Intake Total 3661.7 240 Output Total 610 100 Balance 3051.7 140 Weight 139 lb 5.314 oz Intake: IV Fluids 3661.7 Mag 90.6 NS w/ 20mEQ KCL 675.5 zosyn 105 Oral 240 Output: Kelly 595 100 Nephrostomy #1 15 Labs: Laboratory Results - last 24 hr 10/09/18 10/09/18 10/09/18 15:24 15:24 15:24 WBC 21.5 H RBC 2.90 L Hgb 8.8 L Hct 26 L MCV 88 MCH 30 MCHC 34 RDW 16 H Plt Count 65 L MPV 8.0 Neut % (Auto) 94.1 Lymph % (Auto) 1.6 Flagler % (Auto) 2.9 Eos % (Auto) 0.0 Baso % (Auto) 1.4 Absolute Neuts (auto) 20.2 H Absolute Lymphs (auto) 0.3 L Absolute Monos (auto) 0.6 Absolute Eos (auto) 0.0 Absolute Basos (auto) 0.3 H Absolute Nucleated RBC 0.0 Nucleated RBC % 0.0 INR (Anticoag Therapy) 1.70 H Patient Temperature ABG pH ABG pH (Temp Correct) ABG pCO2 ABG pCO2 (Temp Corrct ABG pO2 ABG pO2 (Temp Correct ABG HCO3 ABG O2 Saturation ABG Base Excess Respiration Rate O2 Delivery Device Ventilator Type Vent Mode FiO2 Inspiratory Time PEEP Pressure Support Pressure Control EPAP IPAP BiPAP Sodium 132 L Potassium 3.3 L Chloride 103 Carbon Dioxide 16 L Anion Gap 13 H BUN 57 H Creatinine 3.02 H Est GFR ( Amer) 25.7 Est GFR (Non-Af Amer) 21.2 BUN/Creatinine Ratio 18.9 Glucose 148 H Lactic Acid Calcium 8.7 Magnesium 1.1 L Total Bilirubin 0.90 AST 32 ALT 22 Alkaline Phosphatase 90 Total Protein 6.3 L Albumin 3.4 Globulin 2.9 Albumin/Globulin Ratio 1.2 Urine Color Urine Appearance Urine pH Ur Specific Craig Urine Protein Urine Ketones Urine Blood Urine Nitrate Urine Bilirubin Urine Urobilinogen Ur Leukocyte Esterase Urine WBC (Auto) Urine RBC (Auto) Urine Bacteria Urine Glucose Digoxin 0.6 L Valproic Acid < 13.0 L Levetiracetam Blood Type Antibody Screen 10/09/18 10/09/18 10/09/18 15:24 15:24 15:24 WBC RBC Hgb Hct MCV MCH MCHC RDW Plt Count MPV Neut % (Auto) Lymph % (Auto) Flagler % (Auto) Eos % (Auto) Baso % (Auto) Absolute Neuts (auto) Absolute Lymphs (auto) Absolute Monos (auto) Absolute Eos (auto) Absolute Basos (auto) Absolute Nucleated RBC Nucleated RBC % INR (Anticoag Therapy) Patient Temperature ABG pH ABG pH (Temp Correct) ABG pCO2 ABG pCO2 (Temp Corrct ABG pO2 ABG pO2 (Temp Correct ABG HCO3 ABG O2 Saturation ABG Base Excess Respiration Rate O2 Delivery Device Ventilator Type Vent Mode FiO2 Inspiratory Time PEEP Pressure Support Pressure Control EPAP IPAP BiPAP Sodium Potassium Chloride Carbon Dioxide Anion Gap BUN Creatinine Est GFR ( Amer) Est GFR (Non-Af Amer) BUN/Creatinine Ratio Glucose Lactic Acid 1.5 Calcium Magnesium Total Bilirubin AST ALT Alkaline Phosphatase Total Protein Albumin Globulin Albumin/Globulin Ratio Urine Color Urine Appearance Urine pH Ur Specific Craig Urine Protein Urine Ketones Urine Blood Urine Nitrate Urine Bilirubin Urine Urobilinogen Ur Leukocyte Esterase Urine WBC (Auto) Urine RBC (Auto) Urine Bacteria Urine Glucose Digoxin Valproic Acid Levetiracetam <2.0 L Blood Type O Positive Antibody Screen Negative 10/09/18 10/09/18 10/10/18 16:59 22:56 04:36 WBC 17.5 H RBC 2.64 L Hgb 8.1 L Hct 24 L MCV 89 MCH 31 MCHC 34 RDW 16 H Plt Count 51 L MPV 9.1 Neut % (Auto) 92.0 Lymph % (Auto) 3.0 Flagler % (Auto) 3.8 Eos % (Auto) 0.8 Baso % (Auto) 0.4 Absolute Neuts (auto) 16.1 H Absolute Lymphs (auto) 0.5 L Absolute Monos (auto) 0.7 Absolute Eos (auto) 0.1 Absolute Basos (auto) 0.1 Absolute Nucleated RBC 0.0 Nucleated RBC % 0.0 INR (Anticoag Therapy) Patient Temperature Not Reportable ABG pH 7.30 L ABG pH (Temp Correct) Not Reportable ABG pCO2 22 L ABG pCO2 (Temp Corrct Not Reportable ABG pO2 101 H ABG pO2 (Temp Correct Not Reportable ABG HCO3 14.4 L ABG O2 Saturation 99.1 H ABG Base Excess -13.5 L Respiration Rate Not Reportable O2 Delivery Device Nc Ventilator Type Not Reportable Vent Mode Not Reportable FiO2 Not Reportable Inspiratory Time Not Reportable PEEP Not Reportable Pressure Support Not Reportable Pressure Control Not Reportable EPAP Not Reportable IPAP Not Reportable BiPAP Not Reportable Sodium Potassium Chloride Carbon Dioxide Anion Gap BUN Creatinine Est GFR ( Amer) Est GFR (Non-Af Amer) BUN/Creatinine Ratio Glucose Lactic Acid Calcium Magnesium Total Bilirubin AST ALT Alkaline Phosphatase Total Protein Albumin Globulin Albumin/Globulin Ratio Urine Color Nell Urine Appearance Turbid Urine pH 5.0 Ur Specific Craig 1.013 Urine Protein 2+(100 mg/dl) A Urine Ketones Negative Urine Blood 2+ A Urine Nitrate Negative Urine Bilirubin Negative Urine Urobilinogen Negative Ur Leukocyte Esterase 3+ A Urine WBC (Auto) 3+(>20/hpf) A Urine RBC (Auto) 3+(>10/hpf) A Urine Bacteria 1+ A Urine Glucose Negative Digoxin Valproic Acid Levetiracetam Blood Type Antibody Screen 10/10/18 10/10/18 04:36 04:50 WBC RBC Hgb Hct MCV MCH MCHC RDW Plt Count MPV Neut % (Auto) Lymph % (Auto) Flagler % (Auto) Eos % (Auto) Baso % (Auto) Absolute Neuts (auto) Absolute Lymphs (auto) Absolute Monos (auto) Absolute Eos (auto) Absolute Basos (auto) Absolute Nucleated RBC Nucleated RBC % INR (Anticoag Therapy) 1.15 H Patient Temperature ABG pH ABG pH (Temp Correct) ABG pCO2 ABG pCO2 (Temp Corrct ABG pO2 ABG pO2 (Temp Correct ABG HCO3 ABG O2 Saturation ABG Base Excess Respiration Rate O2 Delivery Device Ventilator Type Vent Mode FiO2 Inspiratory Time PEEP Pressure Support Pressure Control EPAP IPAP BiPAP Sodium 134 L Potassium 3.6 Chloride 111 Carbon Dioxide 12 L* Anion Gap 11 BUN 53 H Creatinine 2.68 H Est GFR ( Amer) 29.5 Est GFR (Non-Af Amer) 24.4 BUN/Creatinine Ratio 19.8 Glucose 134 H Lactic Acid Calcium 7.8 L Magnesium 2.6 Total Bilirubin AST ALT Alkaline Phosphatase Total Protein Albumin Globulin Albumin/Globulin Ratio Urine Color Urine Appearance Urine pH Ur Specific Craig Urine Protein Urine Ketones Urine Blood Urine Nitrate Urine Bilirubin Urine Urobilinogen Ur Leukocyte Esterase Urine WBC (Auto) Urine RBC (Auto) Urine Bacteria Urine Glucose Digoxin Valproic Acid Levetiracetam Blood Type Antibody Screen Studies: 10/09 CXR - airspace opacification in the right midlung zone 10/09 CT abd/pelvis - Left hydronephrosis noted with a 1.2 cm calculi in the proximal left ureter. Atrophic right kidney. 10/09 CT brain - ex vacuo dilatation of the right lateral ventricle with encephalomalacia in the right frontal parietal lobe and left occipital lobe unchanged from prior Nutrition: clear liquids Impression: 63 yo M with PMH including kidney stones, renal insuffiency, CHF, and seizure disorder presented to the ED on 10/09 with witnessed seizure activity. Found to have sepsis secondary to obstructing kidney stone, hydronephrosis and pyelonephritis. Also noted to have possible right middle lobe aspiration pneumonia. Started on Zosyn for broadspectrum coverage, IVF for resuscitation and nephrostomy tube placed. Plan: Cardiovascular: (1) Afib with RVR; (2) Chronic atrial fibrillation; (3) Hypotension due to sepsis; (4) CAD; (5) Chronic CHF; (6) Cardiomegaly; (7) hx of cardiac arrest; (8) hx of endocarditis; (9) hx of MVR -- HR 96-130 -- SBP 77-114 -- Telemetry -- check BNP -- Scheduled albumin -- Atorvastatin -- Digoxin, Metoprolol Home meds: Torsemide, Metoprolol, Digoxin, Aldactone, Pradaxa, atorvastatin Pulmonary: (1) Question of RML aspiration pneumonia; (2) hx of prior pneumonia -- RR 21-49 -- sats 84-100 on 2L NC -- CXR: RML infiltrate Home meds: None Gastrointestinal:(1) hx of GI bleed; (2) Crohn's disease -- diet: CLD, advance to renal diet -- bowel regimen: None -- ulcer prophylaxis: Protonix -- PRN Zofran for nausea Home meds: Protonix, Titralac Endocrine: (1) Hyperglycemia -- monitor BGs -- start sliding scale insulin if BGs> 180 Home meds: None Renal: (1) Acute kidney injury on CKD; (2) Obstructing left kidney stone with hydronephrosis s/p nephrostomy tube placement; (3) Hyponatremia; (4) Hypocalcemia -- UOP: 38 ml/hr -- Cr 2.68 from 3.02, follow trend -- Lytes Na 134 from 132, follow trend K 3.6 Ca 7.8, replace Mag 2.6 Phos ordered with AM labs -- IVF: NS @ 100 ml/hr -- Calcium carbonate Home meds: Torsemide, Magnesium oxide, Aldactone Infectious disease: (1) Sepsis; (2) Pyelonephritis with E. coli; (3) Question of RML aspiration pneumonia -- Tmax 100.1 -- WBC 17.5 from 21.5, follow trend -- Micro 10/09 Body fluid in progress MRSA screen negative Urine E coli -- ABX Zosyn Home meds: None Neurologic: (1) Witnessed seizure event in ED, likely lowered seizure threshold secondary to infection; (2) Seizure disorder; (3) hx of TIAs -- AEDs Depakote Keppra -- Cymbalta -- PRN Morphine for pain control -- PT Home meds: Depakote, Cymbalta, Keppra Hematological: (1) Chronic anemia; (2) Chronic thrombocytopenia, per patient he was told his spleen is "eating them up" -- Hgb 8.1 from 8.8 -- Plt 51 from 65 -- Coags INR 1.15 -- DVT prophylaxis: SQ Heparin -- resume home ferrous sulfate Home meds: Ferrous sulfate, Pradaxa Metabolic: No acute issues Home meds: None Deep vein thrombosis prophylaxis: SQ Heparin Dietary: Protonix Condition: serious Prognosis: guarded Code status: full Disposition:continue ICU care Cumulative time spent in the care of this patient (excluding any procedure time) : at least 50 minutes. Patient care included clinical interview (with patient and/or family), bedside exam of the patient, review of labs, x-rays, and other ancillary data, coordination of (respiratory, nursing care, review of patient's records, discussion regarding patients management with involved consultants, primary physician, pharmacists, and other healthcare personnel (dietary, case management , physical/occupational therapy etc.) Critical Care Time: 50
[2018-10-10] MEDS ORDERED: Lactated Ringers 1000 ML Bag* 1,000 ML IV SCH (16:00)
[2018-10-10] MEDS: Atorvastatin* 10 MG TAB PO SCH (17:39)
[2018-10-10] MEDS: Albumin Human 25%* 25 GM/100 ML BTL IV SCH ×2 (17:41→23:17)
[2018-10-10 17:56] LABS: Activated Partial Thrombo Time 41.3 seconds (26.0-38.0); INR 1.34 (0.82-1.09)
[2018-10-10] MEDS ORDERED: Digoxin IV* 0.5 MG/2 ML AMP (0.25 MG/ML) IV SLOW PU ONE (17:56)
[2018-10-10] MEDS ORDERED: Amiodarone 150 MG IVPREMIX* 150 MG/100 ML BAG IV ONE (19:15)
[2018-10-10] MEDS ORDERED: Amiodarone 360 MG IVPREMIX* 360 MG/200 ML BAG IV ONE (19:30)
[2018-10-10] MEDS ORDERED: levETIRAcetam 500 MG IVPREMIX* 500 MG/100 ML BAG IV SCH (21:32)
--- NOTE | 2018-10-10 21:43 | PN ---
Hospitalist Progress Note Date of Service: 10/10/18 I rounded on Mr. Erazo this evening; he is more somnolent than throughout the day. A peripheral line was unable to be obtained via ultrasound, so Dr. Esquivel came to insert a R IJ TLC. For this 63 year old man with history of afib, seizures, CAD, TIA, CHF who presented with seizure and was found to have sepsis with a urinary source, now with a change in mental status, my differential includes status epilepticus ( AED levels both subtherapeutic, sepsis, MAUREEN on zosyn), meningitis, toxic encephalopathy, intracranial hemorrhage (thrombocytopenia), worsening sepsis, ingestion. I have discussed his case with Dr. Quach and Dr. Colon. -stat ABG -recheck blood cultures -stat CMP, ammonia, CBC, INR -load with keppra and valproic acid -repeat CT head -repeat CT abd/pelvis, noncon due to MAUREEN -change zosyn to ceftriaxone (nurse behavioral health care dose)
[2018-10-10] MEDS ORDERED: levETIRAcetam 1000MG IVPREMIX* 1,000 MG/100 ML BAG IVPB ONE (22:00)
[2018-10-10] MEDS ORDERED: Valproic Acid IV(*) 1,000 MG in NS 0.9% 100 ML* 100 ML IVPB ONE (22:00)
[2018-10-10 22:18] LABS: Albumin 2.9 g/dL (3.2-5.2); Albumin/Globulin Ratio 1.1 (1-3); BUN/Creatinine Ratio 18.6 (8-20); EGFR African American 22.1 (>60); EGFR Non-African American 18.3 (>60); Globulin 2.6 g/dL (2-4); Potassium 4.3 mmol/L (3.5-5.0); Total Protein 5.5 g/dL (6.4-8.9)
[2018-10-10 22:22] LABS: INR 1.43 (0.82-1.09)
[2018-10-10 22:46] LABS: Fibrinogen > 593.6 mg/dL (110.8-404.3)
[2018-10-10] MEDS: Ferrous Sulfate TAB* 325 MG PO SCH (22:59)
[2018-10-10] MEDS: Metoprolol Tartrate TAB* 50 mg PO SCH (22:59)
[2018-10-10] MEDS: Calcium Carbonate CHEW TAB* 500 MG (TUMS) PO SCH (22:59)
[2018-10-10] MEDS ORDERED: cefTRIAXone(*) 2 GM in NS 0.9% 100 ML* 100 ML IVPB SCH (23:00)
[2018-10-10] MEDS ORDERED: Succinylcholine* 20 MG/ML 10 ML VIAL ONE (23:40)
[2018-10-10] MEDS ORDERED: Propofol* 100 ML ONE (23:45)
[2018-10-10] MEDS ORDERED: Pantoprazole IV* 40 MG IV SCH (23:45)
[2018-10-10] MEDS ORDERED: Etomidate* 2 MG/ML 20 ML VIAL (40 MG) ONE (23:47)
[2018-10-11 00:29] LABS: Hematocrit 22 % (42-52); Hemoglobin 7.3 g/dL (14.0-18.0); Mean Corpuscular HGB Conc 34 g/dL (31-36); Mean Corpuscular Hemoglobin 30 pg (27-31); Mean Corpuscular Volume 91 fL (80-94); Mean Platelet Volume 9.9 fL (7.4-10.4); Platelet Count 29 10^3/uL (150-450); Red Blood Count 2.42 10^6 /uL (4.18-5.48); Red Cell Distribution Width 16 % (10-15); White Blood Count 15.6 10^3/uL (3.5-10.8)
[2018-10-11] MEDS ORDERED: Vancomycin(*) 500 MG in NS 0.9% 250 ML* 250 ML IVPB ONE (00:41)
--- NOTE | 2018-10-11 00:48 | PN ---
Hospitalist Progress Note Date of Service: 10/11/18 Update. Came back to see Ronald, his mental status continued to be poor with minimal response to verbal stimuli other than eye opening. Dr. Esquivel called to intubate. Now sedated on propofol. Repeat CT head report says it is unchanged from prior. CT A/P shows nephrostomy in correct position with possible early emphysematous pyelonephritis, CMP shows worsening renal function, urine output is poor, nephrostomy output is minimal. Guard attempting to reach family. Will broaden antibiotics (add vanc). Emphysematous pyelo unlikely since air can be explained by tube being flushed. Continue albumin, try bolus of normal saline. Will order EEG for the morning.
[2018-10-11] MEDS ORDERED: NS 0.9% 500 ML* 500 ML IV ONE (00:56)
[2018-10-11] MEDS: Norepinephrine VIAL* 8 MG in NS 0.9% 500 ML* 492 ML IV SCH ×4 (00:59→22:36)
[2018-10-11] MEDS ORDERED: Vancomycin(*) 1,000 MG in NS 0.9% 250 ML* 250 ML IVPB ONE (01:30)
[2018-10-11] MEDS: Propofol* 100 ML IV SCH ×4 (02:08→21:26)
[2018-10-11] MEDS: NS 0.9% 1000 ML** 1,000 ML IV SCH ×3 (02:10→14:13)
--- NOTE | 2018-10-11 02:43 | PN ---
Hospitalist Progress Note Date of Service: 10/11/18 [place] was able to provide Ronald's emergency contact, his sister Tiffani. I called and spoke with her, updated her on his being here, the events of the evening, and his guarded prognosis. She is planning to come today and to bring his sons with her. She was very grateful for the update.
[2018-10-11] MEDS ORDERED: NS 0.9% 1000 ML** 1,000 ML IV ONE ×4 (03:06→21:16)
[2018-10-11] MEDS: Albumin Human 25%* 25 GM/100 ML BTL IV SCH ×2 (04:06→09:56)
[2018-10-11] MEDS: Amiodarone 360 MG IVPREMIX* 360 MG/200 ML BAG IV SCH ×2 (04:09→16:38)
[2018-10-11 06:11] LABS: Hematocrit 21 % (42-52); Mean Corpuscular HGB Conc 34 g/dL (31-36); Mean Corpuscular Hemoglobin 31 pg (27-31); Mean Corpuscular Volume 91 fL (80-94); Platelet Count 34 10^3/uL (150-450); Red Blood Count 2.31 10^6 /uL (4.18-5.48); Red Cell Distribution Width 17 % (10-15); White Blood Count 22.2 10^3/uL (3.5-10.8)
[2018-10-11 06:22] LABS: Blood Urea Nitrogen 63 mg/dL (6-24); Calcium 7.5 mg/dL (8.6-10.3); EGFR African American 24.5 (>60); EGFR Non-African American 20.2 (>60); Glucose 116 mg/dL (70-100); Magnesium 2.2 mg/dL (1.9-2.7); Phosphorus 4.6 mg/dL (2.5-5.0); Potassium 3.8 mmol/L (3.5-5.0); Sodium 139 mmol/L (135-145)
[2018-10-11 06:39] LABS: Anion Gap 13 mmol/L (2-11); CO2 Carbon Dioxide 11 mmol/L (22-32); Chloride 115 mmol/L (101-111)
--- NOTE | 2018-10-11 06:44 | PN ---
Hospitalist Progress Note Date of Service: 10/11/18 UOP remains poor. Will give 1U PRBCs for volume expansion. ATN also on differential. Case discussed with Dr. Girard, who recommends contacting interventional radiology when they get here to confirm tube placement (CT read confirms it is in the renal pelvis); will defer to day team as they are not in yet. His sister Tiffani also reports history of endocarditis; this should be kept in mind and an echo considered, will defer to day team.
[2018-10-11] MEDS: Digoxin TAB* 0.125 MG PO SCH (07:45)
[2018-10-11] MEDS: Lactulose* 15 ML UDC PO SCH ×3 (07:45→20:47)
[2018-10-11] MEDS: Pantoprazole TAB * 40 MG TAB PO SCH (07:45)
[2018-10-11] MEDS: Chlorhexidine MOUTHWASH 0.12%* 15 ML UDC SWISH SPIT SCH ×3 (07:45→21:05)
[2018-10-11] MEDS: Ferrous Sulfate TAB* 325 MG PO SCH (07:46)
[2018-10-11] MEDS: Divalproex DR TAB(*) 250 MG PO SCH (07:46)
[2018-10-11] MEDS: Metoprolol Tartrate TAB* 50 mg PO SCH ×2 (07:46→20:48)
[2018-10-11] MEDS: DULoxetine DR CAP* 30 MG CAP.DR PO SCH (07:49)
[2018-10-11] MEDS ORDERED: levETIRAcetam 500 MG IVPREMIX* 500 MG/100 ML BAG IV SCH (09:00)
--- NOTE | 2018-10-11 10:43 | PN ---
Date of Service: 10/11/18 Critical Care Services: Progressive encepahlopathy last PM culminating in acute hypoxic respiratory failure and intubation. Now on pressors. Vital Signs: Temp Pulse Resp BP SpO2 FiO2 36.9 C 69 20 97/46 97 40 10/11/18 08:00 10/11/18 10:19 10/11/18 06:00 10/11/18 10:18 10/11/18 10:19 10/11 07:35 Physical Exam: Gen: Rouses through sedation, appears mildy uncomfortable. HEENT: Intubated, PERRL Lungs: coarse entry bilaterally Cardiac: S1S2 irregular Abdomen: soft, NT, ND, +BS, left PCN draining minimally left leg bag Extremities: +1 edema Neuro: rouses through light sedation, moves ext spontaneously Fluid Balance (Past 24 Hours): I= O= Net Intake & Output 10/09/18 10/10/18 10/11/18 10/12/18 06:59 06:59 06:59 06:59 Intake Total 3661.7 4681 Output Total 610 330 27 Balance 3051.7 4351 -27 Weight 63.2 kg 67.1 kg Intake: IV Fluids 3661.7 2266 Mag 90.6 NS 1012 NS w/ 20mEQ KCL 675.5 1154 zosyn 105 100 IVPB 1314 Abx 614 NS w/ 20mEQ KCL 700 Medicated IV 561 Amio 310 Levophed 187 Propofol 64 Oral 240 Albumin 300 Output: Kelly 595 330 27 Nephrostomy #1 15 Labs: Laboratory Results - last 24 hr 10/09/18 10/09/18 10/09/18 15:24 15:24 20:14 WBC RBC Hgb Hct MCV MCH MCHC RDW Plt Count MPV INR (Anticoag Therapy) APTT Fibrinogen Patient Temperature ABG pH ABG pH (Temp Correct) ABG pCO2 ABG pCO2 (Temp Corrct ABG pO2 ABG pO2 (Temp Correct ABG HCO3 ABG O2 Saturation ABG Base Excess Respiration Rate O2 Delivery Device Ventilator Type Vent Mode FiO2 Inspiratory Time PEEP Pressure Support Pressure Control EPAP IPAP BiPAP Sodium Potassium Chloride Carbon Dioxide Anion Gap BUN Creatinine Est GFR ( Amer) Est GFR (Non-Af Amer) BUN/Creatinine Ratio Glucose Lactic Acid Calcium Ionized Calcium Phosphorus Magnesium Total Bilirubin AST ALT Alkaline Phosphatase Ammonia B-Natriuretic Peptide Total Protein Albumin Globulin Albumin/Globulin Ratio Levetiracetam <2.0 L Blood Type O Positive Antibody Screen Negative Crossmatch See Detail See Detail 10/10/18 10/10/18 10/10/18 17:30 21:31 21:45 WBC RBC Hgb Hct MCV MCH MCHC RDW Plt Count MPV INR (Anticoag Therapy) 1.34 H APTT 41.3 H Fibrinogen Patient Temperature Not Reportable ABG pH 7.21 L ABG pH (Temp Correct) Not Reportable ABG pCO2 27 L ABG pCO2 (Temp Corrct Not Reportable ABG pO2 113 H ABG pO2 (Temp Correct Not Reportable ABG HCO3 12.8 L ABG O2 Saturation 99.4 H ABG Base Excess -15.5 L Respiration Rate Not Reportable O2 Delivery Device 3lpm nc Ventilator Type Not Reportable Vent Mode Not Reportable FiO2 Not Reportable Inspiratory Time Not Reportable PEEP Not Reportable Pressure Support Not Reportable Pressure Control Not Reportable EPAP Not Reportable IPAP Not Reportable BiPAP Not Reportable Sodium Potassium Chloride Carbon Dioxide Anion Gap BUN Creatinine Est GFR ( Amer) Est GFR (Non-Af Amer) BUN/Creatinine Ratio Glucose Lactic Acid Calcium Ionized Calcium Phosphorus Magnesium Total Bilirubin AST ALT Alkaline Phosphatase Ammonia 71 H B-Natriuretic Peptide Total Protein Albumin Globulin Albumin/Globulin Ratio Levetiracetam Blood Type Antibody Screen Crossmatch 10/10/18 10/10/18 10/10/18 21:45 21:45 21:45 WBC RBC Hgb Hct MCV MCH MCHC RDW Plt Count MPV INR (Anticoag Therapy) 1.43 H APTT Fibrinogen > 593.6 H Patient Temperature ABG pH ABG pH (Temp Correct) ABG pCO2 ABG pCO2 (Temp Corrct ABG pO2 ABG pO2 (Temp Correct ABG HCO3 ABG O2 Saturation ABG Base Excess Respiration Rate O2 Delivery Device Ventilator Type Vent Mode FiO2 Inspiratory Time PEEP Pressure Support Pressure Control EPAP IPAP BiPAP Sodium 139 Potassium 4.3 Chloride 114 H Carbon Dioxide 12 L* Anion Gap 13 H BUN 64 H Creatinine 3.44 H Est GFR ( Amer) 22.1 Est GFR (Non-Af Amer) 18.3 BUN/Creatinine Ratio 18.6 Glucose 91 Lactic Acid 0.9 Calcium 8.0 L Ionized Calcium Phosphorus Magnesium Total Bilirubin 1.00 AST 18 ALT 19 Alkaline Phosphatase 64 Ammonia B-Natriuretic Peptide Total Protein 5.5 L Albumin 2.9 L Globulin 2.6 Albumin/Globulin Ratio 1.1 Levetiracetam Blood Type Antibody Screen Crossmatch 10/11/18 10/11/18 10/11/18 00:00 05:47 05:47 WBC 15.6 H RBC 2.42 L Hgb 7.3 L Hct 22 L MCV 91 MCH 30 MCHC 34 RDW 16 H Plt Count 29 L MPV 9.9 INR (Anticoag Therapy) APTT Fibrinogen Patient Temperature ABG pH ABG pH (Temp Correct) ABG pCO2 ABG pCO2 (Temp Corrct ABG pO2 ABG pO2 (Temp Correct ABG HCO3 ABG O2 Saturation ABG Base Excess Respiration Rate O2 Delivery Device Ventilator Type Vent Mode FiO2 Inspiratory Time PEEP Pressure Support Pressure Control EPAP IPAP BiPAP Sodium 139 Potassium 3.8 Chloride 115 H Carbon Dioxide 11 L* Anion Gap 13 H BUN 63 H Creatinine 3.15 H Est GFR ( Amer) 24.5 Est GFR (Non-Af Amer) 20.2 BUN/Creatinine Ratio 20.0 Glucose 116 H Lactic Acid Calcium 7.5 L Ionized Calcium Phosphorus 4.6 Magnesium 2.2 Total Bilirubin AST ALT Alkaline Phosphatase Ammonia B-Natriuretic Peptide 542 H Total Protein Albumin Globulin Albumin/Globulin Ratio Levetiracetam Blood Type Antibody Screen Crossmatch 10/11/18 10/11/18 05:47 05:47 WBC 22.2 H RBC 2.31 L Hgb 7.0 L Hct 21 L MCV 91 MCH 31 MCHC 34 RDW 17 H Plt Count 34 L MPV 10.0 INR (Anticoag Therapy) APTT Fibrinogen Patient Temperature ABG pH ABG pH (Temp Correct) ABG pCO2 ABG pCO2 (Temp Corrct ABG pO2 ABG pO2 (Temp Correct ABG HCO3 ABG O2 Saturation ABG Base Excess Respiration Rate O2 Delivery Device Ventilator Type Vent Mode FiO2 Inspiratory Time PEEP Pressure Support Pressure Control EPAP IPAP BiPAP Sodium Potassium Chloride Carbon Dioxide Anion Gap BUN Creatinine Est GFR ( Amer) Est GFR (Non-Af Amer) BUN/Creatinine Ratio Glucose Lactic Acid Calcium Ionized Calcium 1.13 L Phosphorus Magnesium Total Bilirubin AST ALT Alkaline Phosphatase Ammonia B-Natriuretic Peptide Total Protein Albumin Globulin Albumin/Globulin Ratio Levetiracetam Blood Type Antibody Screen Crossmatch Studies: CXR with asymmetric pulmonary edema, cardiogenic vs inflammatory/infectious. Impression: Acute hypoxic respiratory failure in setting of urologic sepsis complicated by afib RVR and now in shock. Plan: Acute hypoxic respiratory failure occurs as the second event to the encephalopathy. I believe the encephalopathy is hyperammonemia though of course seizures are high in his DDx and ultimately he was rebolused with AEDs overnight. The respiratory failure seems to follow the initial events and his CXR could be consistent with acute aspiration pneumonitis, however, given that I must reconcile his hypoxia, his CXR, his shock and a non-anion gap metabolic acidosis the best unifying diagnosis is now cardiogenic. This is especially true in a patient with a significant cardiac history. EKG and ECHO are ordered. I performed bedside screening ECHO and to my eye he has moderate LV dysfunction for pictures taken on levophed at 20mcg/min. Formal is pending. Will add troponins. He clearly presents with sepsis and has good source control and appropriate Abx but then complicate shis course with hepatic encephalopathy and now possible cardiac decompensation leading to the current scenario. Abx narrowed to cove the proven espino-sensitive E. Coli. I do not believe his decompensation is from sepsis and will DC Vanco as more risk than benefit to his current MAUREEN. Remains at risk for cardioembolic events but actively bleeding at CVC site as well as on suctioning. Continue current management and workup of cardiac source for his shock. Critical Care Time: 50 minutes
[2018-10-11] MEDS: Calcium Carbonate CHEW TAB* 500 MG (TUMS) PO SCH (11:52)
[2018-10-11] MEDS ORDERED: Norepinephrine VIAL* 8 MG in NS 0.9% 500 ML* 492 ML IV SCH (12:18)
--- NOTE | 2018-10-11 13:43 | CONS ---
CONSULTATION REPORT: DATE OF CONSULT: 10/11/18 PATIENT OF: Dr. Carson. HISTORY OF PRESENT ILLNESS: This is a 63-year-old man who I am asked to comment on on altered mental status. 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 He has a history of atrial fibrillation, ITP, MD, coronary artery disease, hyperlipidemia. He has had increasing seizures in the past month and he had presented to the ER with a seizure for 3 to 4 minutes. He had also left flank pain and in the ER was noted to be febrile with leukocytosis of 21.5 and he has a left hydronephrosis with an obstructing renal calculi and a nephrostomy tube was placed. He was then found to have pyelonephritis with E. coli and was also thought to have possible aspiration pneumonia. He has had a history of cardiac arrest and chronic congestive heart failure. He has had chronic renal insufficiency. When he came in, I spoke to the nurse who saw him on the night of admission and said he was asking many appropriate questions. He has a history of ITP and he was asking about his spleen in reference to the ITP. Dr. Peters called me last evening because of some progressive confusion over the course of late afternoon and evening, but without any witnessed seizures. His anticonvulsants namely, his Depakote and Keppra on admission had been not detectable. Therefore I recommended reloading him and call me back if there continued to be problems. I also discussed issues of treating his E. coli with meningitic doses just in case in the unlikely event that it somehow spread to his meninges or had abscesses. Repeat CT scan is being done and reluctant to give contrast given his renal insufficiency. She was checking a pneumonia and we also discussed the possibility of endocarditis. I do not feel that he had a past history of endocarditis that time, but an echo has been ordered. PAST MEDICAL HISTORY: Significant for coronary artery disease, hyperlipidemia, seizures, mitral valve defect status post repair, history of stroke, endocarditis, ITP, atrial fibrillation, MD, congestive heart failure. PAST SURGICAL HISTORY: He has had open surgery twice in 1965 and repeat in 1984 , multiple cardiac catheterizations with valve repair, multiple bowel resections. MEDICATIONS: At [facility] include: 1. Protonix 40 mg b.i.d. 2. Mag oxide 400 b.i.d. 3. Cymbalta 30 mg daily. 4. Depakote 750 b.i.d. 5. Keppra 1000 in the morning and 750 at night. 6. Lopressor 50 b.i.d. 7. Digoxin 0.25 daily. 8. Lipitor 10 mg daily. 9. Aldactone 25 mg daily. 10. Torsemide 40 mg daily. 11. Pradaxa 150 mg b.i.d. 12. Titralac 420 two tabs t.i.d. as needed. Current medications include: 1. Digoxin. 2. Depakote 750 b.i.d. 3. Keppra 500 twice a day. 4. Propofol drip. 5. Norepinephrine. 6. Lactulose 15 mg t.i.d. ALLERGIES: He is allergic to HALDOL. FAMILY HISTORY: Father has MS. Mother has diabetes. SOCIAL HISTORY: He is a former smoker, former alcoholic. REVIEW OF SYSTEMS: Unobtainable from the patient. He was intubated and put on propofol last night. PHYSICAL EXAMINATION: On exam, most recent temperature 98.4, pulse 66, respirations 17, blood pressure 97/46. He has coarse breath sounds bilaterally. Cardiovascular: Irregular rate and rhythm. Abdomen: Soft. Positive bowel sounds. He has his left nephrostomy drain draining, 1+ edema. He moved and tried to open his eyes to noxious stimulus on either side. He did not open his eyes, but lifted his eyebrows. Pupils equal and reactive to light. By history, when the sedation was decreased, he became agitated and moved all extremities. Toes were equivocal. DIAGNOSTIC STUDIES/LAB DATA: Labs include not detectable Depakote and Keppra. The UA had 2+ protein, 2+ blood, 3+ leuk esterase, 1+ bacteria with E. coli growing. His most recent electrolytes with bicarb of 11, BUN 53, creatinine 3.15, glucose 116, calcium 7.5. Normal liver function test. Ammonia of 71. BNP of 542. Blood gas 7.21, pCO2 of 27, pO2 of 113. INR of 1.43 down from 1.7. Fibrinogen 593. White count 22, hematocrit 21, platelets 34,000. His CT scan done last evening was reviewed and showed evidence of right parietal , left parietal, and occipital and left frontal encephalomalacia that had been previously noted and he has ventricular dilatation on the right lateral ventricle, which appears chronic as well. I discussed this case with Dr. Peters and today with Dr. Carson. This is a difficult case. His most straight forward explanation what is going on is that he developed urosepsis and metabolic disturbance including elevated ammonia. These infectious metabolic causes caused some progressive confusion as well as worsening cardiac status and acidosis and some possible hypoxemia. All these could have contributed to altered mental status. We discussed with Dr. Peters last night, it was possible that he seeded his brain and meninges and a negative CT scan does not completely rule that out. We were reluctant to give contrast on the basis of his renal status but covering him for AUTOM[employer]ACKER infection. He cannot get a spinal tap given his hematologic dysfunction currently. It would make sense to obtain [employer] imaging with and without contrast when he is stable enough to be brought into further complications. It sounds like there is no focality on his exam. Another possibility is that he could have a seizure. Seizures were witnessed on admission, but not since, but I am checking EEG now to make sure he does not have subclinical status. He was loaded with Depacon last night, but I do not see IV Depacon order on a continued basis and this should be done. However, depending on what his ammonia does, it is possible that the Depakote is contributing to his elevated ammonia level. It is unclear whether elevated ammonia is acute from his infectious disease or related to his Depakote. If it is related to his Depakote , it may not be responsible for his change in mental status. Thank you for sharing his case. [id number]/[facility] #: [id number] ELLIS HOSPITALGodfrey
[2018-10-11 14:10] LABS: Troponin I 0.05 ng/mL (<0.04)
[2018-10-11] MEDS: Atorvastatin* 10 MG TAB PO SCH (17:08)
[2018-10-11 17:32] LABS: Hematocrit 25 % (42-52); Hemoglobin 8.3 g/dL (14.0-18.0); Mean Corpuscular HGB Conc 34 g/dL (31-36); Mean Corpuscular Hemoglobin 31 pg (27-31); Mean Corpuscular Volume 91 fL (80-94); Mean Platelet Volume 9.3 fL (7.4-10.4); Platelet Count 37 10^3/uL (150-450); Red Blood Count 2.73 10^6 /uL (4.18-5.48); Red Cell Distribution Width 16 % (10-15); White Blood Count 25.6 10^3/uL (3.5-10.8)
[2018-10-11 17:47] LABS: Troponin I 0.18 ng/mL (<0.04)
[2018-10-11] MEDS ORDERED: NS 0.9% 1000 ML** 1,000 ML IV SCH ×2 (18:05→19:45)
[2018-10-11] MEDS: Meropenem 500MG PREMIX(*) 500 MG/50 ML BAG IV SCH (19:51)
[2018-10-11] MEDS: Valproic Acid LIQ(*) 250 MG/5 ML UDC PO SCH (20:47)
[2018-10-11] MEDS: levETIRAcetam LIQ* 500 MG/5 ML UDC PO SCH (20:47)
[2018-10-11] MEDS ORDERED: Ferrous Sulfate LIQ* 300 MG/5 ML UDC PO SCH ×2 (21:00→21:30)
[2018-10-11] MEDS: Pantoprazole IV* 40 MG IV SCH (21:48)
[2018-10-12 00:36] LABS: Troponin I 0.74 ng/mL (<0.04)
[2018-10-12] MEDS: Norepinephrine VIAL* 8 MG in NS 0.9% 500 ML* 492 ML IV SCH ×2 (02:51→06:43)
[2018-10-12] MEDS: Meropenem 500MG PREMIX(*) 500 MG/50 ML BAG IV SCH ×3 (02:52→17:52)
[2018-10-12] MEDS: Propofol* 100 ML IV SCH ×3 (04:37→17:52)
[2018-10-12 05:45] LABS: Hematocrit 25 % (42-52); Hemoglobin 8.2 g/dL (14.0-18.0); Mean Corpuscular HGB Conc 34 g/dL (31-36); Mean Corpuscular Hemoglobin 31 pg (27-31); Mean Corpuscular Volume 92 fL (80-94); Mean Platelet Volume 9.9 fL (7.4-10.4); Platelet Count 28 10^3/uL (150-450); Red Blood Count 2.67 10^6 /uL (4.18-5.48); Red Cell Distribution Width 17 % (10-15); White Blood Count 28.7 10^3/uL (3.5-10.8)
[2018-10-12 05:58] LABS: Albumin/Globulin Ratio 1.3 (1-3); BUN/Creatinine Ratio 18.2 (8-20); Calcium 7.6 mg/dL (8.6-10.3); EGFR African American 19.4 (>60); Globulin 2.3 g/dL (2-4); Magnesium 2.2 mg/dL (1.9-2.7); Phosphorus 4.9 mg/dL (2.5-5.0); Potassium 4.3 mmol/L (3.5-5.0); Total Protein 5.3 g/dL (6.4-8.9)
[2018-10-12] MEDS: Metoprolol Tartrate TAB* 50 mg PO SCH ×2 (07:28→21:16)
[2018-10-12] MEDS: Sodium Bicarbonate 8.4% IV* 150 MEQ in D5W 1000 ML BAG* 1,000 ML IV SCH ×2 (07:28→19:03)
[2018-10-12] MEDS: Valproic Acid LIQ(*) 250 MG/5 ML UDC PO SCH ×2 (07:28→21:15)
[2018-10-12] MEDS: Chlorhexidine MOUTHWASH 0.12%* 15 ML UDC SWISH SPIT SCH ×3 (07:28→21:16)
[2018-10-12] MEDS: Digoxin TAB* 0.125 MG PO SCH (07:29)
[2018-10-12] MEDS: Lactulose* 15 ML UDC PO SCH ×3 (07:29→21:15)
[2018-10-12] MEDS: levETIRAcetam LIQ* 500 MG/5 ML UDC PO SCH ×2 (07:29→21:16)
[2018-10-12] MEDS: DULoxetine DR CAP* 30 MG CAP.DR PO SCH (07:29)
[2018-10-12] MEDS: Ferrous Sulfate LIQ* 300 MG/5 ML UDC G TUBE SCH ×2 (07:29→21:15)
[2018-10-12] MEDS ORDERED: Sodium Bicarbonate 8.4% IV* 50 ML VIAL IV ONE ×2 (08:16→15:00)
--- NOTE | 2018-10-12 09:02 | PN ---
Date of Service: 10/12/18 - Reamins critically ill on pressors Critical Care Services: Progressive MSOF in setting of Septic shock from urinary source complicated by acute on chronic systolic heart failure and demand coronary ischemia. Vital Signs: Temp Pulse Resp BP SpO2 FiO2 36.7 C 102 24 94/57 92 50 10/12/18 03:14 10/12/18 08:15 10/12/18 08:00 10/12/18 08:15 10/12/18 08:15 10/12 05:54 Physical Exam: Gen: Anasarca HEENT: NCAT, intubated, PERRL Lungs: coarse entry bilat Cardiac: S1S2 irreg Abdomen: soft, mild disst, +BS, NT Extremities: +3 edema Neuro: rouses through light sedation, moves ext spont Fluid Balance (Past 24 Hours): I= O= Net Intake & Output 10/10/18 10/11/18 10/12/18 10/13/18 06:59 06:59 06:59 06:59 Intake Total 3661.7 4681 6418.0 Output Total 610 330 262 7 Balance 3051.7 4351 6156.0 -7 Weight 63.2 kg 67.1 kg 72.8 kg Intake: IV Fluids 3661.7 2266 3383 Mag 90.6 NS 1012 3383 NS w/ 20mEQ KCL 675.5 1154 zosyn 105 100 IVPB 1314 104 Abx 614 Meropenem 104 NS w/ 20mEQ KCL 700 Medicated IV 561 2646.0 Amio 310 365 Levophed 187 2018 Propofol 64 263.0 Oral 240 Packed Cells 285 Albumin 300 Output: NG Tube Drainage Amount 150 Peñaloza 595 330 112 7 Nephrostomy #1 15 Labs: Laboratory Results - last 24 hr 10/09/18 10/11/18 10/11/18 15:24 05:47 17:10 WBC 25.6 H RBC 2.73 L Hgb 8.3 L Hct 25 L MCV 91 MCH 31 MCHC 34 RDW 16 H Plt Count 37 L MPV 9.3 Patient Temperature ABG pH ABG pH (Temp Correct) ABG pCO2 ABG pCO2 (Temp Corrct ABG pO2 ABG pO2 (Temp Correct ABG HCO3 ABG O2 Saturation ABG Base Excess Respiration Rate Ventilator Type Vent Mode FiO2 Inspiratory Time PEEP Pressure Support Pressure Control EPAP IPAP BiPAP Sodium 139 Potassium 3.8 Chloride 115 H Carbon Dioxide 11 L* Anion Gap 13 H BUN 63 H Creatinine 3.15 H Est GFR ( Amer) 24.5 Est GFR (Non-Af Amer) 20.2 BUN/Creatinine Ratio 20.0 Glucose 116 H Lactic Acid Calcium 7.5 L Ionized Calcium Phosphorus 4.6 Magnesium 2.2 Total Bilirubin AST ALT Alkaline Phosphatase Ammonia Troponin I 0.05 H* Total Protein Albumin Globulin Albumin/Globulin Ratio Blood Type O Positive Antibody Screen Negative Crossmatch See Detail 10/11/18 10/11/18 10/12/18 17:10 23:50 05:16 WBC RBC Hgb Hct MCV MCH MCHC RDW Plt Count MPV Patient Temperature ABG pH ABG pH (Temp Correct) ABG pCO2 ABG pCO2 (Temp Corrct ABG pO2 ABG pO2 (Temp Correct ABG HCO3 ABG O2 Saturation ABG Base Excess Respiration Rate Ventilator Type Vent Mode FiO2 Inspiratory Time PEEP Pressure Support Pressure Control EPAP IPAP BiPAP Sodium 140 Potassium 4.3 Chloride 118 H Carbon Dioxide 9 L* Anion Gap 13 H BUN 70 H Creatinine 3.85 H Est GFR ( Amer) 19.4 Est GFR (Non-Af Amer) 16.0 BUN/Creatinine Ratio 18.2 Glucose 78 Lactic Acid Calcium 7.6 L Ionized Calcium Phosphorus 4.9 Magnesium 2.2 Total Bilirubin 2.00 H AST 16 ALT 14 Alkaline Phosphatase 98 Ammonia Troponin I 0.18 H* 0.74 H* Total Protein 5.3 L Albumin 3.0 L Globulin 2.3 Albumin/Globulin Ratio 1.3 Blood Type Antibody Screen Crossmatch 10/12/18 10/12/18 10/12/18 05:16 05:16 05:30 WBC 28.7 H RBC 2.67 L Hgb 8.2 L Hct 25 L MCV 92 MCH 31 MCHC 34 RDW 17 H Plt Count 28 L MPV 9.9 Patient Temperature ABG pH ABG pH (Temp Correct) ABG pCO2 ABG pCO2 (Temp Corrct ABG pO2 ABG pO2 (Temp Correct ABG HCO3 ABG O2 Saturation ABG Base Excess Respiration Rate Ventilator Type Vent Mode FiO2 Inspiratory Time PEEP Pressure Support Pressure Control EPAP IPAP BiPAP Sodium Potassium Chloride Carbon Dioxide Anion Gap BUN Creatinine Est GFR ( Amer) Est GFR (Non-Af Amer) BUN/Creatinine Ratio Glucose Lactic Acid Calcium Ionized Calcium 1.18 Phosphorus Magnesium Total Bilirubin AST ALT Alkaline Phosphatase Ammonia 88 H Troponin I Total Protein Albumin Globulin Albumin/Globulin Ratio Blood Type Antibody Screen Crossmatch 10/12/18 10/12/18 05:30 05:47 WBC RBC Hgb Hct MCV MCH MCHC RDW Plt Count MPV Patient Temperature Not Reportable ABG pH 7.00 L* ABG pH (Temp Correct) Not Reportable ABG pCO2 32 L ABG pCO2 (Temp Corrct Not Reportable ABG pO2 72 L ABG pO2 (Temp Correct Not Reportable ABG HCO3 7.3 L* ABG O2 Saturation 96.6 ABG Base Excess -22.5 L Respiration Rate Not Reportable Ventilator Type Not Reportable Vent Mode Not Reportable FiO2 50 Inspiratory Time Not Reportable PEEP Not Reportable Pressure Support Not Reportable Pressure Control Not Reportable EPAP Not Reportable IPAP Not Reportable BiPAP Not Reportable Sodium Potassium Chloride Carbon Dioxide Anion Gap BUN Creatinine Est GFR ( Amer) Est GFR (Non-Af Amer) BUN/Creatinine Ratio Glucose Lactic Acid 0.7 Calcium Ionized Calcium Phosphorus Magnesium Total Bilirubin AST ALT Alkaline Phosphatase Ammonia Troponin I Total Protein Albumin Globulin Albumin/Globulin Ratio Blood Type Antibody Screen Crossmatch Nutrition: NPO testing Impression: Progressive MSOF in setting of Septic shock from urinary source complicated by acute on chronic systolic heart failure and demand coronary ischemia. Plan: Septic Shock- I suspect is clinically controlled between broad Abx and perc neph but his clinical behavior demands a second look. Growing espino-sensitive E. Coli from 2 different urinary tract cultures and is growing GNRs in blood with ID pending. Abx empirically re-broadened last evening by me in that context with rising WBC. We must also reconsider PCN displacement despite reassuring CT 36 hrs ago. Must also consider biliary tract given rising bilirubin though I do not believe we will find that is a source. US for abdomen complete already ordered. Following C&S. Acute hypoxic respiratory failure - CXR and pattern of events most consistent with CHF. He's 14 liters positive balance the last 3 days and tough to pull volume while we are fighting for UO. I gave him a little volume cautiously last evening and did see a substantial increase in UO as a result but at the expense of increased FIO2 and edema. That the volume did not worsen UO or increase the LEvo suggests it did not further decompensate the myocardium. Acute renal failure - ATN the secondary/tertiary event here. Supporting perfusion with pressors and will investigate PCN placement with US. Getting some urine from both peñaloza and PCN. No acute dialytic indications. Now on HCO3 drip. I gave 200mEq NaHCO3 this AM for an ABG pH of 7.0 with a low PCO2. Repeat as VBG this AM. Cardiomyopathy - troponins peaked and are falling, within the demand ischemia range and that would be very consistent with events. Formal ECHO pending. Continue inotropic support. Thrombocytopenia - ITP vs sepsis or both. Apparently has history of ITP. Gievn his ongoing high dose pressor requirement and now a second potential indication for steroids I have started solumedrol at a high enough dose to treat ITP as well as relative adrenal insufficiency. Long discussion at bedside with patient's sister and son yesterday who voiced understanding of his critical illness and potential mortality as well as appreciation for the care. Critical Care Time: 50 minutes
[2018-10-12] MEDS: methylPREDNISolone 125 MG* 2 ML VIAL IV SCH ×2 (09:59→17:50)
[2018-10-12] MEDS: NS 0.9% IV SCH ×2 (10:15→17:51)
[2018-10-12] MEDS: NOREPINEPHRINE IV SCH ×2 (10:15→17:51)
--- NOTE | 2018-10-12 10:56 | ECHO ---
*[facility]* [place] [address] Fax #: [phone] Transthoracic Echocardiogram Patient: Ronald Erazo [id number] : 1955 Study Date: 10/12/2018 Age: 63 Gender: M HR: 96 bpm Height: 63 in /160 cm BSA: 1.7 m^2 Weight: 146.7 lb /66.7 kg BMI: 26 kg/m^2 *Hosting Engineer: Allie Hernandez [facility] *Referring Physician: * Kumar CarsonReading Physician: * Cyrus Corral MD Indications: Congestive Heart Failure. History: Endocarditis. Atrial fibrillation. Coronary artery disease. Congestive heart failure. Cerebrovascular accident. PMH: Myocardial infarction. Risk factors: Dyslipidemia. Labs, prior tests, procedures, and surgery: Mitral valve repair. Conclusions Summary: 1. Left ventricle: The cavity size is at the lower limits of normal. Wall thickness is mildly increased. Systolic function is hyperdynamic. The estimated ejection fraction is 65-70%. Wall motion is normal; there are no regional wall motion abnormalities. 2. Ventricular septum: There is septal flattening of the interventricular septum consistent with RV volume or pressure overload. 3. Left atrium: The atrium is severely dilated. 4. Right atrium: The atrium is severely dilated. 5. Mitral valve: Mitral valve has been surgically repaired and appears to be normally functioning. 6. Aortic valve: There is mild to moderate regurgitation. 7. Tricuspid valve: Tricuspid valve appears to be surgically repaired and normally functioning. 8. Pulmonary arteries: Systolic pressure is moderate to severely increased. The peak pressure during systole by Doppler is 57.0 mm Hg. 9. Since the prior echocardiogram completed 01/11/17, pertinent changes are prior left ventricular ejection fraction reported at 55-60% and prior moderate tricuspid regurgitation reported. Study data: Transthoracic echocardiogram. Procedure: Transthoracic echocardiography was performed. Image quality was fair. The study was technically limited due to Patient on ventilator. Complete 2D, spectral Doppler, and color flow Doppler. Location: ICU Patient status: Inpatient. Patient room number: 9. Rhythm: Atrial fibrillation. Findings Left ventricle: The cavity size is at the lower limits of normal. Wall thickness is mildly increased. Systolic function is hyperdynamic. The estimated ejection fraction is 65-70%. Wall motion is normal; there are no regional wall motion abnormalities. Left ventricular diastolic function parameters are indeterminate. Right ventricle: The cavity size is normal. Systolic function is normal. Ventricular septum: There is septal flattening of the interventricular septum consistent with RV volume or pressure overload. Left atrium: The atrium is severely dilated. Right atrium: The atrium is severely dilated. Mitral valve: Mitral valve has been surgically repaired and appears to be normally functioning. The leaflets are moderately thickened. There is no evidence of stenosis. There is trivial regurgitation. Aortic valve: The valve is trileaflet. The leaflets are mildly thickened. There is no evidence of stenosis. There is mild to moderate regurgitation. Tricuspid valve: Tricuspid valve appears to be surgically repaired and normally functioning. The leaflets are mildly thickened. There is trace to mild regurgitation. Pulmonic valve: The leaflets are normal thickness. There is no evidence of stenosis. There is mild regurgitation. Aorta: Aortic root: The aortic root is appears normal. Ascending aorta: The ascending aorta is appears normal. Aortic arch: The aortic arch is poorly visualized. Pericardium: There is no significant pericardial effusion. Pulmonary arteries: Not well visualized. Systolic pressure is moderate to severely increased. Systemic veins: Inferior vena cava: The vessel is dilated. Respirophasic changes in dimension are absent. Measurements Left ventricle Value Ref Aortic valve continued Value Ref DREAD, LAX (L) 3.9 cm 4.2 - 5.8 AR peak v 2.79 m/sec ----- ESD, LAX 2.9 cm 2.5 - 4.0 AR PHT 318 ms ----- FS, LAX 27 % 25 - 43 AR peak grad 31 mm Hg ----- PW, ED, LAX (H) 1.3 cm 0.6 - 1.0 EF 53 % 52 - 72 Mitral valve Value Ref E', lat ignacio, TDI (L) 6.6 cm/sec >=10.0 Peak E 1.89 m/sec - ---- E/e', lat ignacio, 29 Peak A 0.06 m/sec ---- - TDI Decel time 222 ms ----- PHT 96 ms ----- LVOT Value Ref Mean grad, D 8.0 mm Hg ----- Peak santiago, S 1.31 m/sec Peak grad, D 17.0 mm Hg ----- Peak grad, S 7 mm Hg Peak E/A ratio 31 ----- MVA, PHT 2.0 cm^2 ----- Ventricular septum Value Ref IVS, ED (H) 1.3 cm 0.6 - 1.0 Pulmonic valve Value Ref Peak v, S 1.13 m/sec ----- Right ventricle Value Ref Peak grad, S 5.0 mm Hg ----- DREAD, LAX 3.3 cm Pressure, S 61 mm Hg Tricuspid valve Value Ref TR peak v (H) 3.4 m/sec <=2.8 Left atrium Value Ref Peak RV-RA grad, S 46 mm Hg ----- AP dim, ES (H) 6.50 cm 3.00 - 4.00 Aortic root Value Ref ML dim, A4C 4.5 cm Root diam 3.0 cm <3.9 SI dim, A4C 8.2 cm Vol/bsa, ES, A/L (H) 84 ml/m^2 16 - 34 Ascending aorta Value Ref AAo AP diam, S 2.8 cm ----- Right atrium Value Ref SI dim, ES (H) 6.6 cm 3.4 - 5.3 Pulmonary artery Value Ref ML dim, ES, A4C (H) 4.7 cm 2.6 - 4.4 Pressure, S 56.0 mm Hg ----- Estimated RAP 15 mm Hg Inferior vena cava Value Ref Aortic valve Value Ref Diam 2.4 cm ----- Ignacio diam, ED 2.4 cm Peak v, S 1.6 m/sec Peak grad, S 10.0 mm Hg Legend: (L) and (H) jad values outside specified reference range. Prepared and electronically signed by Cyrus Corral MD 10/12/2018 10:55
[2018-10-12] MEDS ORDERED: SODIUM BICARBONATE IV SCH (15:00)
[2018-10-12] MEDS ORDERED: NS 0.9% IV SCH (15:00)
[2018-10-12] MEDS: Atorvastatin* 10 MG TAB PO SCH (17:53)
[2018-10-12 18:38] LABS: Albumin 2.9 g/dL (3.2-5.2); Albumin/Globulin Ratio 1.3 (1-3); Calcium 7.7 mg/dL (8.6-10.3); EGFR African American 17.4 (>60); EGFR Non-African American 14.3 (>60); Globulin 2.3 g/dL (2-4); Potassium 3.9 mmol/L (3.5-5.0); Total Bilirubin 2.2 mg/dL (0.2-1.0); Total Protein 5.2 g/dL (6.4-8.9)
[2018-10-12] MEDS: Artificial Tear OPHTH.OINT* 3.5 GM BOTH EYES PRN (21:16)
[2018-10-12] MEDS: Pantoprazole IV* 40 MG IV SCH (23:01)
--- NOTE | 2018-10-12 23:03 | PN ---
PROGRESS NOTE: DATE OF SERVICE: 10/12/18 PATIENT OF: Dr. Carson. HISTORY: This is a 63-year-old man, who I am seeing in neurological followup of his altered mental status. He has been maintained on propofol throughout the day. His propofol was decreased at one point, but because of increasing respiratory symptoms, his propofol was restarted after about an hour. He has had no apparent seizures and his EEG yesterday did not show subclinical seizures. MEDICATIONS: Include: 1. His lactulose. 2. Keppra. 3. Solu-Medrol. 4. Norepinephrine drip. 5. Propofol. 6. Depakene. PHYSICAL EXAM: He has remained hypotensive throughout the day with blood pressures as low as 86/55, currently 109/50; pulse is 109; respirations 22; temperature 100.2. He was sedated and intubated. He does respond to noxious stim. He was not breathing over the vent. Pupils were sluggish. Chest had bilateral rales. Cardiovascular: Regular rate and rhythm. Abdomen is soft. LABORATORY DATA: Labs include white count of 28.7, hematocrit 25, platelets 28, 000. Blood gas 7, with PCO2 of 32, PO2 of 72. CMP: Bicarb of 9, BUN is 70, creatinine 3.85, ammonia was 88 today, calcium 7.6, bili 2. IMPRESSION AND PLAN: Mr. Erazo is severely ill with severe hypotension and severe metabolic acidosis. The initial etiology is presumed septic shock. He also has acute renal failure and cardiomyopathy, thrombocytopenia. It is difficult to assess his mental status at this point and if he is clinically stable, it would be great to try to decrease the propofol tomorrow and see what his baseline mental status is. If there remains a question either because he is not able to come off the propofol or because he is not acting normally, then if clinically stable, obtaining an MRI scan would be appropriate. Thank you for sharing his case. [id number]/[facility] #: [id number] SEAN
[2018-10-13] MEDS: methylPREDNISolone 125 MG* 2 ML VIAL IV SCH ×3 (00:24→16:26)
[2018-10-13] MEDS: NS 0.9% IV SCH ×2 (00:53→18:21)
[2018-10-13] MEDS: NOREPINEPHRINE IV SCH ×2 (00:53→18:21)
[2018-10-13] MEDS: Propofol* 100 ML IV SCH ×2 (01:58→13:16)
[2018-10-13] MEDS: Meropenem 500MG PREMIX(*) 500 MG/50 ML BAG IV SCH ×3 (02:04→21:40)
[2018-10-13 05:41] LABS: Hematocrit 19 % (42-52); Hemoglobin 6.8 g/dL (14.0-18.0); Mean Corpuscular HGB Conc 36 g/dL (31-36); Mean Corpuscular Hemoglobin 31 pg (27-31); Mean Corpuscular Volume 87 fL (80-94); Mean Platelet Volume 8.5 fL (7.4-10.4); Platelet Count 18 10^3/uL (150-450); Red Blood Count 2.18 10^6 /uL (4.18-5.48); Red Cell Distribution Width 17 % (10-15); White Blood Count 6.8 10^3/uL (3.5-10.8)
[2018-10-13 06:05] LABS: Albumin 2.6 g/dL (3.2-5.2); Albumin/Globulin Ratio 1.2 (1-3); BUN/Creatinine Ratio 16.7 (8-20); Calcium 7.9 mg/dL (8.6-10.3); EGFR African American 16.5 (>60); EGFR Non-African American 13.6 (>60); Globulin 2.1 g/dL (2-4); Phosphorus 4.8 mg/dL (2.5-5.0); Potassium 3.2 mmol/L (3.5-5.0); Total Bilirubin 1.9 mg/dL (0.2-1.0); Total Protein 4.7 g/dL (6.4-8.9)
[2018-10-13] MEDS: Sodium Bicarbonate 8.4% IV* 150 MEQ in D5W 1000 ML BAG* 1,000 ML IV SCH ×2 (06:20→13:12)
[2018-10-13 06:21] LABS: Hematocrit 19 % (42-52); Hemoglobin 6.6 g/dL (14.0-18.0); Mean Corpuscular HGB Conc 35 g/dL (31-36); Mean Corpuscular Hemoglobin 31 pg (27-31); Mean Corpuscular Volume 88 fL (80-94); Mean Platelet Volume 8.7 fL (7.4-10.4); Platelet Count 18 10^3/uL (150-450); Red Blood Count 2.16 10^6 /uL (4.18-5.48); Red Cell Distribution Width 16 % (10-15); White Blood Count 6.5 10^3/uL (3.5-10.8)
[2018-10-13] MEDS: Chlorhexidine MOUTHWASH 0.12%* 15 ML UDC SWISH SPIT SCH ×3 (08:33→21:40)
[2018-10-13] MEDS: Digoxin TAB* 0.125 MG PO SCH (08:33)
[2018-10-13] MEDS: Valproic Acid LIQ(*) 250 MG/5 ML UDC PO SCH ×2 (08:33→21:39)
[2018-10-13] MEDS: levETIRAcetam LIQ* 500 MG/5 ML UDC PO SCH ×2 (08:33→21:40)
[2018-10-13] MEDS: Lactulose* 15 ML UDC PO SCH ×3 (08:33→21:40)
[2018-10-13] MEDS: Ferrous Sulfate LIQ* 300 MG/5 ML UDC G TUBE SCH ×2 (08:34→21:40)
[2018-10-13] MEDS: DULoxetine DR CAP* 30 MG CAP.DR PO SCH (08:34)
[2018-10-13] MEDS: Metoprolol Tartrate TAB* 50 mg PO SCH ×2 (08:34→21:40)
[2018-10-13] MEDS: Pantoprazole TAB * 40 MG TAB PO SCH (09:37)
[2018-10-13] MEDS: Heparin VIAL(*) 5000 UNITS/ML VIAL (FIVE THOUSAND) SUBCUT SCH (09:38)
[2018-10-13] MEDS: levETIRAcetam TAB* 500 MG PO SCH (09:39)
--- NOTE | 2018-10-13 11:48 | PN ---
Date of Service: 10/13/18 Critical Care Services: Hemodynamically improved and making urine Vital Signs: Temp Pulse Resp BP SpO2 FiO2 36.6 C 91 18 115/58 97 60 10/13/18 07:52 10/13/18 11:15 10/13/18 11:00 10/13/18 11:15 10/13/18 11:15 10/13 08:00 Physical Exam: Gen: rouses off sedation but still deep HEENT: NCAT, intubated, PERRL Lungs: coarse entry bilaterally Cardiac: S1S2 irregular Abdomen: soft, NT, ND, +BS Extremities: +3 edema Neuro: withdraws to pain x 4 Fluid Balance (Past 24 Hours): I= O= Net Intake & Output 10/11/18 10/12/18 10/13/18 10/14/18 06:59 06:59 06:59 06:59 Intake Total 4681 6418.0 6152 Output Total 330 262 946 45 Balance 4351 6156.0 5206 -45 Weight 67.1 kg 72.8 kg 82.8 kg Intake: IV Fluids 2266 3383 1643 Meropenem 55 NS 1012 3383 253 NS w/ 20mEQ KCL 1154 sodium bicarb 1335 zosyn 100 IVPB 6905 508 1645 Abx 614 Meropenem 104 110 NS w/ 20mEQ KCL 700 sodium bicarb 904 Medicated IV 561 2646.0 3495 Amio 310 365 Levophed 187 2018 2868 Propofol 64 263.0 627 Oral 240 Packed Cells 285 Albumin 300 Output: NG Tube Drainage Amount 150 300 Peñaloza 330 112 146 45 Tube Feeding Residual 500 Amount Wasted Labs: Laboratory Results - last 24 hr 10/12/18 10/12/18 10/13/18 12:35 18:10 05:20 WBC RBC Hgb Hct MCV MCH MCHC RDW Plt Count MPV VBG pH 7.15 L VBG pCO2 31 L VBG pO2 42.0 VBG HCO3 11.2 L VBG O2 Saturation 76.6 VBG Base Excess -16.8 L Sodium 144 149 H Potassium 3.9 3.2 L Chloride 116 H 115 H Carbon Dioxide 13 L* 20 L Anion Gap 15 H 14 H BUN 68 H 74 H Creatinine 4.24 H 4.43 H Est GFR ( Amer) 17.4 16.5 Est GFR (Non-Af Amer) 14.3 13.6 BUN/Creatinine Ratio 16.0 16.7 Glucose 185 H 235 H Calcium 7.7 L 7.9 L Ionized Calcium Phosphorus 4.8 Magnesium 2.0 Total Bilirubin 2.20 H 1.90 H AST 18 17 ALT 14 12 Alkaline Phosphatase 61 50 Total Protein 5.2 L 4.7 L Albumin 2.9 L 2.6 L Globulin 2.3 2.1 Albumin/Globulin Ratio 1.3 1.2 Blood Type Antibody Screen Crossmatch 10/13/18 10/13/18 10/13/18 05:20 05:20 05:20 WBC 6.8 RBC 2.18 L Hgb 6.8 L Hct 19 L MCV 87 MCH 31 MCHC 36 RDW 17 H Plt Count 18 L* MPV 8.5 VBG pH 7.29 L VBG pCO2 29 L VBG pO2 53.0 H VBG HCO3 15.8 L VBG O2 Saturation 85.5 H VBG Base Excess -11.2 L Sodium Potassium Chloride Carbon Dioxide Anion Gap BUN Creatinine Est GFR ( Amer) Est GFR (Non-Af Amer) BUN/Creatinine Ratio Glucose Calcium Ionized Calcium 1.07 L Phosphorus Magnesium Total Bilirubin AST ALT Alkaline Phosphatase Total Protein Albumin Globulin Albumin/Globulin Ratio Blood Type Antibody Screen Crossmatch 10/13/18 10/13/18 05:55 05:55 WBC 6.5 RBC 2.16 L Hgb 6.6 L Hct 19 L MCV 88 MCH 31 MCHC 35 RDW 16 H Plt Count 18 L* MPV 8.7 VBG pH VBG pCO2 VBG pO2 VBG HCO3 VBG O2 Saturation VBG Base Excess Sodium Potassium Chloride Carbon Dioxide Anion Gap BUN Creatinine Est GFR ( Amer) Est GFR (Non-Af Amer) BUN/Creatinine Ratio Glucose Calcium Ionized Calcium Phosphorus Magnesium Total Bilirubin AST ALT Alkaline Phosphatase Total Protein Albumin Globulin Albumin/Globulin Ratio Blood Type O Positive Antibody Screen Negative Crossmatch See Detail Nutrition: Some ileus with his anasarca, 500cc residual, hold today Impression: Improving multisystem organ failure Plan: Acute hypoxic respiratory failure - starting to make urine, 1000cc last 24hrs a vast improvement but 20 liters to go to resolve his volume overload. Not ready for diuretic yet, decreasing the input substantially, levophed down from 37 to 13 mcg/min last 24 hrs in positive balance 5 liters. FIO2 at 60%. CXR tomorrow Septic shock - seems resolved with improved UO from both peñaloza and PCN. WBC down to 8. Afebrile. Bhakta sensitive E. Coli from blood, peñaloza urine and PCN urine. Detuned on last narrowing with leukocytosis and fever despite C&S, will de-escalate tomorrow. For now down dose Merrem for CrCl to [id number]. Acute Kidney Injury - Cr at plateau now with 1000cc UO and expect to see it begin to fall. Will continue HCO3 drip but at lower rate and DC NS. This will save 3600cc input. Cardiogenic Shock - RV failure, severe PHTN apparently improving with volume and time. Levophed down to 13 from 37 yesterday. Cotninue to wean as tolerated. Thrombocytopenia and Anemia - treating as ITP with steroids, plats around 20K and Hgb at 6.5 allowing for his dilutional effect they are stable. Will transfuse platelets only under 10 or life-threatening bleeding. Will transfuse Hgb for life threatening bleeding or absolute value less than 6. I expect Hgb to rise with net negative balance in coming days. Transfusion currently more risk than benefit. Hepatic encephalopathy - will recheck ammonia, not anxious to give him diarrhea and HCO3 losses right now anyway. Excellent progress the last 24 hrs. Critical Care Time: 45 minutes
[2018-10-13] MEDS: Artificial Tear OPHTH.OINT* 3.5 GM BOTH EYES PRN (16:30)
[2018-10-13] MEDS ORDERED: Norepinephrine VIAL* 8 MG in NS 0.9% 500 ML* 492 ML IV SCH (17:00)
[2018-10-13] MEDS: Atorvastatin* 10 MG TAB PO SCH (18:56)
--- NOTE | 2018-10-13 20:03 | PN ---
PROGRESS NOTE: DATE OF SERVICE: 10/13/18 PATIENT OF: Dr. Carson. HISTORY: This is a neurological followup on this 63-year-old man with encephalopathy. We tried to wean the propofol, but he began event and he was started back on propofol. He briefly had a opening both eyes, but was not communicating with people. MEDICATIONS: Include: 1. Propofol. 2. Lipitor. 3. Depakote. 4. Keppra. 5. His antibiotics. 6. He is still on norepinephrine drip. PHYSICAL EXAM: On exam, blood pressures 103/50, pulse 84, respirations 21, temperature 98.2. He was sedated and not responsive to noxious stim. Chest: Clear. Regular rate and rhythm. IMPRESSION AND PLAN: I discussed with Dr. Carson that it would be good when possible to get an MRI scan to assess with thinks like abscess, although this is probably not occurring. He is not clinically stable enough to safely go down to MRI scan; but, according to the ICU attending, he will get an MRI scan. Thank you for sharing this case. [id number]/[facility] #: [id number] SEAN
--- NOTE | 2018-10-13 20:46 | EEG ---
ELECTROENCEPHALOGRAPHY: DATE OF STUDY: - ROOM #ICU-09 DATE OF DICTATION: 10/13/18 PATIENT OF: Dr. Carson. HISTORY: This is a 63-year-old man being evaluated for change in mental status to rule out subclinical seizures. He has a history of urosepsis and cardiopulmonary shock secondary to this. He has had a history of seizures. Medicines include propofol, Depakote, Keppra, antibiotics. INTERPRETATION: With the patient intubated, background cerebral activity consists of admixed delta and theta range frequencies, which is diffuse in field. No epileptiform potentials, focal abnormalities or major asymmetries of background are noted. IMPRESSION: This EEG done with the patient intubated and on propofol shows diffuse slowing of background, but no subclinical seizures or epileptiform potentials. The slowing of background can be secondary to an underlying encephalopathy, but medications the patient is consuming, namely the propofol, could cause similar slowing. [id number]/[facility] #: [id number] MTDD
[2018-10-13] MEDS: Pantoprazole IV* 40 MG IV SCH (21:40)
[2018-10-14] MEDS: Artificial Tear OPHTH.OINT* 3.5 GM BOTH EYES PRN ×4 (00:26→16:55)
[2018-10-14] MEDS: methylPREDNISolone 125 MG* 2 ML VIAL IV SCH ×3 (01:42→16:47)
[2018-10-14 05:25] LABS: Hematocrit 16 % (42-52); Hemoglobin 5.8 g/dL (14.0-18.0); Mean Corpuscular HGB Conc 35 g/dL (31-36); Mean Corpuscular Hemoglobin 31 pg (27-31); Mean Corpuscular Volume 87 fL (80-94); Mean Platelet Volume 8.6 fL (7.4-10.4); Platelet Count 13 10^3/uL (150-450); Red Blood Count 1.89 10^6 /uL (4.18-5.48); Red Cell Distribution Width 16 % (10-15); White Blood Count 3.6 10^3/uL (3.5-10.8)
[2018-10-14 05:43] LABS: Albumin 2.3 g/dL (3.2-5.2); Albumin/Globulin Ratio 1.2 (1-3); Calcium 7.9 mg/dL (8.6-10.3); EGFR African American 17.3 (>60); EGFR Non-African American 14.3 (>60); Globulin 1.9 g/dL (2-4); Magnesium 2.1 mg/dL (1.9-2.7); Phosphorus 3.8 mg/dL (2.5-5.0); Potassium 2.8 mmol/L (3.5-5.0); Total Bilirubin 1.3 mg/dL (0.2-1.0); Total Protein 4.2 g/dL (6.4-8.9)
[2018-10-14] MEDS: KCL 20 MEQ/100 ML IVPREMIX* 20 MEQ/100 ML BAG IV SCH ×2 (07:03→08:47)
[2018-10-14] MEDS: Meropenem 500MG PREMIX(*) 500 MG/50 ML BAG IV SCH (08:48)
[2018-10-14] MEDS: Chlorhexidine MOUTHWASH 0.12%* 15 ML UDC SWISH SPIT SCH ×3 (08:49→21:39)
[2018-10-14] MEDS: Lactulose* 15 ML UDC PO SCH ×3 (08:49→21:39)
[2018-10-14] MEDS: levETIRAcetam LIQ* 500 MG/5 ML UDC PO SCH ×2 (08:49→21:39)
[2018-10-14] MEDS: Valproic Acid LIQ(*) 250 MG/5 ML UDC PO SCH ×2 (08:49→21:39)
[2018-10-14] MEDS: Ferrous Sulfate LIQ* 300 MG/5 ML UDC G TUBE SCH ×2 (08:50→21:39)
[2018-10-14] MEDS: DULoxetine DR CAP* 30 MG CAP.DR PO SCH (08:50)
[2018-10-14] MEDS: Digoxin TAB* 0.125 MG PO SCH ×2 (08:50→09:11)
[2018-10-14] MEDS: Metoprolol Tartrate TAB* 50 mg PO SCH ×2 (08:50→21:39)
--- NOTE | 2018-10-14 10:41 | PN ---
Date of Service: 10/14/18 Critical Care Services: Continues to improve with levophed almost off and UO picking up though platelets continue to fall and Hgb now less than 6 without obvious clinical bleeding Vital Signs: Temp Pulse Resp BP SpO2 FiO2 36.5 C 63 19 119/58 94 40 10/14/18 10:00 10/14/18 10:00 10/14/18 08:00 10/14/18 10:00 10/14/18 10:00 10/14 07:23 Physical Exam: Gen: withdraws pain HEENT: NCAT, PERRL, intubated Lungs: coarse entry Cardiac: S1S2 irregular Abdomen: soft, NT, mild dist, +BS, no rebound Extremities: +3 edema Neuro: withdraws pain Fluid Balance (Past 24 Hours): I= O= Net Intake & Output 10/12/18 10/13/18 10/14/18 10/15/18 06:59 06:59 06:59 06:59 Intake Total 6418.0 6152 2614 Output Total 262 946 950 80 Balance 6156.0 5206 1664 -80 Weight 72.8 kg 82.8 kg 83.2 kg Intake: IV Fluids 3383 1643 1613 Meropenem 55 50 NS 3383 253 76 sodium bicarb 1335 1487 IVPB 104 1014 55 Meropenem 104 110 55 sodium bicarb 904 Medicated IV 2646.0 3495 886 Amio 365 Levophed 2018 2868 854 Propofol 263.0 627 32 Packed Cells 285 NG Tube Irrigate Amount 60 Output: NG Tube Drainage Amount 150 300 425 Peñaloza 112 146 495 80 Nephrostomy #1 30 Tube Feeding Residual 500 Amount Wasted Other: Date of Last Bowel 10/14/18 Movement Estimated Stool Amount Large Labs: Laboratory Results - last 24 hr 10/13/18 10/14/18 10/14/18 05:55 05:05 05:05 WBC 3.6 RBC 1.89 L Hgb 5.8 L* Hct 16 L MCV 87 MCH 31 MCHC 35 RDW 16 H Plt Count 13 L* MPV 8.6 Sodium Potassium Chloride Carbon Dioxide Anion Gap BUN Creatinine Est GFR ( Amer) Est GFR (Non-Af Amer) BUN/Creatinine Ratio Glucose Calcium Ionized Calcium 1.12 L Phosphorus Magnesium Total Bilirubin AST ALT Alkaline Phosphatase Total Protein Albumin Globulin Albumin/Globulin Ratio Blood Type O Positive Antibody Screen Negative Crossmatch See Detail 10/14/18 05:05 WBC RBC Hgb Hct MCV MCH MCHC RDW Plt Count MPV Sodium 149 H Potassium 2.8 L Chloride 114 H Carbon Dioxide 24 Anion Gap 11 BUN 85 H Creatinine 4.26 H Est GFR ( Amer) 17.3 Est GFR (Non-Af Amer) 14.3 BUN/Creatinine Ratio 20.0 Glucose 175 H Calcium 7.9 L Ionized Calcium Phosphorus 3.8 Magnesium 2.1 Total Bilirubin 1.30 H AST 10 L ALT 9 Alkaline Phosphatase 41 Total Protein 4.2 L Albumin 2.3 L Globulin 1.9 L Albumin/Globulin Ratio 1.2 Blood Type Antibody Screen Crossmatch Studies: CTH overnight with no acute intracranial abnormality CXR with volume overload, well aerated overall Nutrition: Residuals again overnight, will try TF again today, moving his bowels now Impression: Improving septic shock, renal failure and right heart failure but pancytopenia worsening. Plan: Septic shock - urinary source secondary to impacted stone left ureter. Perc nephrostomy in place and confirmed continued appropriate placement on follow up imaging. Making urine from both peñaloza and PCN. E.Coli from urine both peñaloza and PCN as well as from blood, all with espino-sensitive C&S. Downgraded to Ceftriaxone 10/14 from Merrem. Cardiogenic Shock - I initially saw biventricular failure, made troponins after afib RVR and initial intubation; official ECHO with RV failure, PHTN and hyperdynamic LV on high dose levophed. Aggressive volume loading has brought levophed from 40 mcg/min to 1mcg/min today and halted the rise in renal indices and initiated UO. He is frankly anasarcic and will start some lasix today. 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 Acute hypoxic respiratory failure - cardiac failure as source, volume overload the current problem but FIO2 good at .4 Starting lasix today as pressors all but off, OK if they go back up a pinch in favor of net diuresis especially in context of impending IVIG volume below. Pancytopenia - I do not see clinical bleeding but Hgb down to 5.8, transfusing 1 unit today. Leukopenia may be chronic or pathologic, not clear, Heme/Onc consulted and platelets also now down to 13 despite empiric treatment of ITP x 3 days. Plan will be empiric IVIG as D/W Dr. Fitzgerald. .4 FIO2 leaves us enough room to try the IVIG and hopefully the lasix will get us near even today. Afib RVR - resolved, digoxin daily and HR in 60s-90s. Will move to QOD dosing. Encephalopthy - certainly multifactorial, CTH OK. Exam consistent with metabolic sources and I expect resolution. I've ordered Keppra and Valproate levels which certainly may be high as well. Overall better but Heme is the new focus. Critical Care Time: 60 minutes
[2018-10-14] MEDS: Furosemide IV* 10 MG/ML VIAL (40 MG) IV SCH ×2 (11:23→16:47)
[2018-10-14] MEDS: cefTRIAXone(*) 1 GM in NS 0.9% 50 ML* 50 ML IVPB SCH (11:54)
[2018-10-14] MEDS ORDERED: IMMUNE GLOBULN IV ONE (12:00)
[2018-10-14 12:02] LABS: BUN/Creatinine Ratio 20.6 (8-20); Calcium 7.7 mg/dL (8.6-10.3); EGFR African American 17.7 (>60); EGFR Non-African American 14.6 (>60); Potassium 3.2 mmol/L (3.5-5.0)
[2018-10-14 12:10] LABS: ABS Lymphocytes 0.2 10^3/ul (1.0-4.8); ABS Monocytes 0.2 10^3/ul (0-0.8); ABS Neutrophils 2.7 10^3/ul (1.5-7.7); Hematocrit 19 % (42-52); Hemoglobin 6.8 g/dL (14.0-18.0); Lymphocyte % 5.9 %; Mean Corpuscular HGB Conc 36 g/dL (31-36); Mean Corpuscular Hemoglobin 31 pg (27-31); Mean Corpuscular Volume 87 fL (80-94); Mean Platelet Volume 8.4 fL (7.4-10.4); Platelet Count 14 10^3/uL (150-450); Red Cell Distribution Width 16 % (10-15); White Blood Count 3.1 10^3/uL (3.5-10.8)
[2018-10-14] MEDS: Sodium Bicarbonate 8.4% IV* 150 MEQ in D5W 1000 ML BAG* 1,000 ML IV SCH (12:52)
[2018-10-14] MEDS: NOREPINEPHRINE IV SCH (15:06)
[2018-10-14] MEDS: NS 0.9% IV SCH (15:06)
[2018-10-14] MEDS: Atorvastatin* 10 MG TAB PO SCH (16:47)
--- NOTE | 2018-10-14 20:00 | PN ---
PROGRESS NOTE: DATE OF SERVICE: 10/14/18 PATIENT OF: Dr. Carson. HISTORY: This is a neurological followup on this 63-year-old man who remains intubated, but now off propofol and waking up. He is unable to give history or communicate. MEDICATIONS: Include: 1. Immunoglobulin 80 g infusion one time. 2. Lactulose 15 mg t.i.d. 3. Keppra 750 b.i.d. 4. Depakote 750 b.i.d. 5. Protonix 40 mg IV q.24 hours. 6. Metoprolol 50 mg b.i.d. 7. Methylprednisolone 16 mg IV q.8 hours. 8. Ceftriaxone 1 g q.24 hours. 9. Lipitor 10 mg daily. 10. Digoxin 0.25 every other day. 11. Cymbalta 30 mg daily. PHYSICAL EXAM: His pressor drip is being weaned Temperature 98.8, pulse 60, respirations 20, blood pressure 120/42. He is alert and has eyes open. He seems to be alert but does not consistently fix and follow. He does not follow commands. He is unable to have any husbandry person or movement in his arms. He wiggled his left toes minimally and it is unclear whether this moves to command or not. Reflexes were trace. Toes were mute. IMPRESSION AND PLAN: I recommended an MRI scan of brain and C-spine to rule out either a brainstem or high cervical lesion causing what appears to be a quadriparesis, but the exam is difficult because it is unclear how much he understands. 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 It is also possible that in the next day he will improve, but this is a significantly abnormal exam and was recommended an MRI scan. I spoke to Dr. Carson at length, who feels that the patient is still too medically unsteady to bring him down for MRI testing and I defer to him in terms of that. We discussed it is unlikely given how sick he is that he would be able to tolerate any procedure intervention based on his MRI scan, but I would want to know what we are dealing with, so we can better make decisions, but not if it puts him at significant risk from moving and putting him in an MRI scan for the time it took to do 1 or 2 scans. Depending on his exam tomorrow, I would re-discuss the issue whether he is stable enough to tolerate the MRI scans. He remains severely thrombocytopenic at 14 and this would be an issue for dealing with any procedure and his PTT was 41, but again if we knew that he had MASTER MACHINIST bleed or bleed in brain-stem, we would be able to transfuse and correct the situation and possibly depending on the exact ability to reverse, we would possibly able to do a procedure, but we will see when he is stable enough to undergo this testing. Thank you for sharing his case. [id number]/[facility] #: [id number] SEAN
[2018-10-14] MEDS: Pantoprazole IV* 40 MG IV SCH (21:39)
[2018-10-14 23:41] LABS: Albumin 2.2 g/dL (3.2-5.2); Albumin/Globulin Ratio 0.7 (1-3); Calcium 7.8 mg/dL (8.6-10.3); EGFR African American 17.9 (>60); EGFR Non-African American 14.8 (>60); Globulin 3.3 g/dL (2-4); Potassium 2.9 mmol/L (3.5-5.0); Total Bilirubin 1.2 mg/dL (0.2-1.0); Total Protein 5.5 g/dL (6.4-8.9)
[2018-10-15] MEDS: KCL 20 MEQ/100 ML IVPREMIX* 20 MEQ/100 ML BAG IV SCH ×5 (00:05→12:20)
[2018-10-15] MEDS: methylPREDNISolone 125 MG* 2 ML VIAL IV SCH ×3 (01:51→16:53)
--- NOTE | 2018-10-15 03:18 | CONS ---
HEMATOLOGY CONSULTATION NOTE: DATE OF ADMISSION: 10/09/18 DATE OF CONSULTATION: 10/14/18 REASON FOR CONSULTATION: Pancytopenia. HISTORY OF PRESENT ILLNESS: Mr. Erazo is a 63-year-old male who is currently intubated and unable to provide the history to me. Details are from the hospital record from this admission. He has a very complex past medical history with underlying valvular heart disease with mitral valve replacement as well as other valve replacements. He has previously had multiple episodes of endocarditis, history of CVA, and atrial fibrillation. 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 On admission, reported that his spleen was chewing up his platelets. He also has a history of an CO with coronary artery disease and prior seizures. He presented to the emergency room from [facility] with a seizure. Seizures have been occurring more often over the past month. In addition, he had a left flank pain and was found to have urosepsis. His white count initially was 21,500. CT scan showed a left hydronephrosis with obstructing renal calculus. A left nephrostomy tube was placed. The patient was initially treated on the medical floor. Remainder of the CBC at the time of admission included an H and H of 25/8.8 and a platelet count of 65,000. Several days into the hospitalization on 10/11/18, the patient was transferred to the ICU where he required urgent intubation with progressive encephalopathy, culminating in acute hypoxic respiratory failure. He also required pressors. He has been treated with multiple antibiotics during the hospitalization. Pressors have recently been weaned down and he is almost off of Levophed. In addition, he did have elevated troponins and there is felt to be a component of cardiogenic shock in addition to the septic shock. Septic shock is from E. coli which is a espino-sensitive growing out of the urine cultures as well as the blood. Antibiotics have been switched to the ceftriaxone from meropenem. Reviewing laboratory studies from his admission in 2016, he has had a platelet count on admission in December 2016 of a 146,000 falling to 97,000. A platelet count on admission of 65,000 falling to 28,000 in a fairly steady downward trend by 10/12/18, 18,000 on 10/13/18, and 13,000 today. Associated with this, he has had a drop in his hemoglobin. Hemoglobin in 2017 was 9.7, after fluid down to 8.3, and at discharge at 8.8. On admission now, hemoglobin of 8.8 and had remained in that range through 10/12/18 and fallen to 6.8 yesterday and 5.8 today. The MCV is normal on occasions and currently is 87. His white count was high on admission at 21,000 consistent with sepsis and keyonna as high as 28, 000 on 10/12/18. Yesterday, at 6.5 and today is 3.6. The differential had included significant bands on 10/11/18 at 23%. Currently, a machine differential shows a neutro count of 2700 still while within the normal range. Review of the peripheral smear reveals a clumping of platelets and therefore the number 13,000 is real. He has been on high dose steroid of a Solu-Medrol for several days in a setting of a severe sepsis, receiving Solu-Medrol at a dose of 60 mg q.8 hours 180 mg a day, which is higher than the dose typically used for ITP; therefore more than adequate in this regard. He has received multiple new medications during his hospitalization including multiple antibiotics and antiseizure medications, which could potentially suppress his blood counts. He has not received any heparin or Lovenox as best as I can see reviewing his hospital chart. PAST MEDICAL HISTORY: In addition to that discussed in the start of the H and P includes: 1. Numerous cardiac catheterizations. 2. Open heart surgery on multiple occasions. ALLERGIES: HALDOL. FAMILY HISTORY: No hematologic or malignancy noted. SOCIAL HISTORY: Former smoker, former alcoholic, quit in . Currently at [facility]. REVIEW OF SYSTEMS: Unavailable. IMAGING: CT scan reveals on 10/10/18 splenomegaly similar to prior study of 2017. Spleen is enlarged, but not massively enlarged. IMPRESSION: This patient presents with a history of ITP by report, but unknown exactly what his records previously consisted of. His platelet count has fallen dramatically during the hospitalization from 65,000 on admission to currently 13,000. This certainly would be consistent with ITP, but also would be consistent with other etiologies such as infection suppressing the bone marrow, medication suppressing the bone marrow or underlying bone marrow prosthesis. It should be noted that in addition to the low platelet count, he has developed a marked decrease in his red count with an H and H currently of 16 /5.8. WBCs have also decreased from high levels with sepsis down to a normal ANC in a low normal white count. While he is intubated, it impossible to obtain previous history from him and it also may be difficult given his encephalopathy even when he is extubated. It is certainly reasonable to treat for ITP with a high dose gammaglobulin 1 g/kg daily x2 for a total dose of 80 g daily and we will see if his platelet count significantly improves over the next 48 hours, if not it would be reasonable for bone marrow aspirate biopsy to be obtained and to be sure that he does not have an underlying marrow process and/or does not have significant aplasia/ dysplasia of the marrow. It seems unlikely in this setting that he would have TTP, but this cannot be totally ruled out at the present time. In general, this should not cause a drop in the white count; however, this certainly could lead to the drop in both the red cell count and the platelet count. He also does have underlying encephalopathy and some renal issues although not renal failure. LDH will be checked in the morning along with further review of the peripheral smear, although no schistocytes were seen on review of the smear today. [id number]/[facility] #: [id number] [facility]
[2018-10-15 05:53] LABS: Hematocrit 18 % (42-52); Hemoglobin 6.5 g/dL (14.0-18.0); Mean Corpuscular HGB Conc 36 g/dL (31-36); Mean Corpuscular Hemoglobin 31 pg (27-31); Mean Corpuscular Volume 87 fL (80-94); Mean Platelet Volume 8.7 fL (7.4-10.4); Platelet Count 14 10^3/uL (150-450); Red Blood Count 2.12 10^6 /uL (4.18-5.48); Red Cell Distribution Width 15 % (10-15)
[2018-10-15 05:55] LABS: Albumin 2.1 g/dL (3.2-5.2); Albumin/Globulin Ratio 0.7 (1-3); BUN/Creatinine Ratio 23.5 (8-20); Calcium 7.7 mg/dL (8.6-10.3); EGFR African American 18.1 (>60); Magnesium 1.9 mg/dL (1.9-2.7); Potassium 3.1 mmol/L (3.5-5.0); Total Protein 5.1 g/dL (6.4-8.9)
[2018-10-15] MEDS: Furosemide IV* 10 MG/ML VIAL (40 MG) IV SCH ×2 (07:59→16:53)
[2018-10-15] MEDS ORDERED: NS 0.9% IV SCH (08:00)
[2018-10-15] MEDS ORDERED: NOREPINEPHRINE IV SCH (08:00)
[2018-10-15] MEDS: Chlorhexidine MOUTHWASH 0.12%* 15 ML UDC SWISH SPIT SCH ×3 (08:02→20:46)
[2018-10-15] MEDS: DULoxetine DR CAP* 30 MG CAP.DR PO SCH (08:09)
[2018-10-15] MEDS: Ferrous Sulfate LIQ* 300 MG/5 ML UDC G TUBE SCH ×2 (08:09→20:48)
[2018-10-15] MEDS: levETIRAcetam LIQ* 500 MG/5 ML UDC PO SCH ×2 (08:09→20:48)
[2018-10-15] MEDS: Valproic Acid LIQ(*) 250 MG/5 ML UDC PO SCH ×2 (08:10→20:46)
[2018-10-15] MEDS: Metoprolol Tartrate TAB* 50 mg PO SCH ×2 (08:10→20:48)
[2018-10-15] MEDS ORDERED: Norepinephrine VIAL* 4 MG in NS 0.9% 250 ML* 246 ML IV SCH ×2 (08:23→09:00)
[2018-10-15] MEDS: Lactulose* 15 ML UDC PO SCH (08:52)
[2018-10-15] MEDS: NS 0.9% IV SCH (08:53)
[2018-10-15] MEDS: NOREPINEPHRINE IV SCH (08:53)
[2018-10-15] MEDS: cefTRIAXone(*) 1 GM in NS 0.9% 50 ML* 50 ML IVPB SCH (11:30)
[2018-10-15] MEDS ORDERED: IMMUNE GLOBULN IV ONE ×3 (12:00)
--- NOTE | 2018-10-15 12:42 | PN ---
Progress Note - Progress Note Date of Service: 10/15/18 Note: Progress Note -- Critical Care 24 hour events/significant events: -remains intubated, sedated overnight; no sig events noted -off sedation this AM; follows commands , moves limbs spontaneously -almost off levophed -propofol held -off IVF now Tele: NSR Vitals: Vital Signs Temp 98.8 F 10/15/18 12:15 Pulse 74 10/15/18 12:15 Resp 22 10/15/18 12:00 BP 131/48 10/15/18 12:15 Pulse Ox 95 10/15/18 12:15 Intake & Output 10/14/18 10/15/18 10/15/18 18:59 06:59 18:59 Intake Total 1924.7 1038 439 Output Total 380 670 404 Balance 1544.7 368 35 Weight 87.7 kg Intake: IV Fluids 217 944 NS 217 NS w/ 20mEQ KCL 192 sodium bicarb 752 IVPB 595 Abx 121 sodium bicarb 474 Medicated IV 800.7 94 IVIG 763 Levophed 37.7 94 Tube Feeding 284 Tube Feeding Flush Amount 150 Packed Cells 312 Pigtail Drain 5 Output: Peñaloza 355 640 404 Nephrostomy #1 25 30 Other: Date of Last Bowel 10/16/15 Movement # Bowel Movements 1 1 Estimated Stool Amount Large Large O2/Vent: AC 40% fio2 Infusions: levophed, propofol Medications: Artificial Tears (Lacrilube Oint*) 1 applic BOTH EYES Q4H PRN PRN Reason: DRY EYE Last Admin: 10/14/18 16:55 Dose: 1 drop Atorvastatin Calcium (Lipitor*) 10 mg PO QPM [facility] Last Admin: 10/14/18 16:47 Dose: 10 mg Chlorhexidine Gluconate (Peridex Mouth Wash 0.12%*) 15 ml SWISH SPIT TID [facility] Last Admin: 10/15/18 08:02 Dose: 15 ml Digoxin (Lanoxin Tab*) 0.125 mg PO EVERY OTHER DAY [facility] Duloxetine HCl (Cymbalta Cap*) 30 mg PO DAILY [facility] Last Admin: 10/15/18 08:09 Dose: 30 mg Ferrous Sulfate (Feosol Liq*) 300 mg G TUBE BID [facility] Last Admin: 10/15/18 08:09 Dose: 300 mg Furosemide (Lasix Iv*) 60 mg IV 0800,1700 [facility] Last Admin: 10/15/18 07:59 Dose: 60 mg Propofol (Diprivan*) 100 mls @ 1.896 mls/hr IV .(Initial Rate) [facility]; Protocol Last Admin: 10/13/18 13:16 Dose: 3.6 mls/hr Ceftriaxone Sodium 1 gm/ (Sodium Chloride) 50 mls @ 100 mls/hr IVPB Q24H [facility] Stop: 10/20/18 23:59 Last Admin: 10/15/18 11:30 Dose: 100 mls/hr Norepinephrine Bitartrate 4 mg (/ Sodium Chloride) 250 mls @ 3.75 mls/hr IV Q48H [facility]; Protocol Last Admin: 10/15/18 09:17 Dose: Not Given Potassium Chloride (Potassium Chloride 20 Meq/100 Ml Ivpremix*) 20 meq in 100 mls @ 50 mls/hr IV Q2H [facility] Stop: 10/15/18 15:59 Last Admin: 10/15/18 12:20 Dose: 100 mls/hr Levetiracetam (Keppra Liq*) 750 mg PO BID [facility] Last Admin: 10/15/18 08:09 Dose: 750 mg Methylprednisolone Sodium Succinate (Solu-Medrol 125mg *) 60 mg IV Q8H [facility] Last Admin: 10/15/18 08:11 Dose: 60 mg Metoprolol Tartrate (Lopressor Tab*) 50 mg PO BID [facility] Last Admin: 10/15/18 08:10 Dose: 50 mg Morphine Sulfate (Morphine 4 Mg/Ml Vial (1 Ml)) 4 mg IV Q4H PRN PRN Reason: PAIN - MODERATE TO SEVERE Last Admin: 10/10/18 08:20 Dose: 4 mg Ondansetron HCl (Zofran Inj*) 4 mg IV Q6H PRN PRN Reason: NAUSEA Last Admin: 10/10/18 08:20 Dose: 4 mg Pantoprazole Sodium (Protonix Iv*) 40 mg IV Q24H [facility] Last Admin: 10/14/18 21:39 Dose: 40 mg Valproic Acid (Depakene Liq(*)) 750 mg PO BID [facility] Last Admin: 10/15/18 08:10 Dose: 750 mg Physical Exam: Constitutional: intubated, off sedation, awake/follows commands, no distress, no diaphoresis Head: normocephalic, atraumatic Eyes: no pallor, no icterus ENT: moist mucous membranes Neck: soft, supple, no jvd CVS: normal rate, regular, no murmur Resp: bilateral air entry, bilateral rhonchi and scattered rhales+, no wheeze, no acc muscle use Abdomen/GI: soft, nontender, nondistended, BS+ Ext/Msk: warm, pulses+, Edema+ 3+ in LE and Upper Ext Skin: intact, warm Neuro: awake, alert, unable to assess orientation, moving ext spontaneously, moves some to command, able to life head on command Labs: Laboratory Results - last 24 hr 10/13/18 10/14/18 10/14/18 05:55 11:27 23:14 WBC RBC Hgb Hct MCV MCH MCHC RDW Plt Count MPV Sodium 148 H Potassium 2.9 L Chloride 112 H Carbon Dioxide 25 Anion Gap 11 BUN 91 H Creatinine 4.13 H Est GFR ( Amer) 17.9 Est GFR (Non-Af Amer) 14.8 BUN/Creatinine Ratio 22.0 H Glucose 180 H Calcium 7.8 L Ionized Calcium Phosphorus Magnesium Total Bilirubin 1.20 H AST 9 L ALT 8 Alkaline Phosphatase 42 Ammonia Lactate Dehydrogenase Total Protein 5.5 L Albumin 2.2 L Globulin 3.3 Albumin/Globulin Ratio 0.7 L Valproic Acid 38.0 L Blood Type O Positive Antibody Screen Negative Crossmatch See Detail 10/15/18 10/15/18 10/15/18 05:25 05:25 05:25 WBC 2.0 L RBC 2.12 L Hgb 6.5 L Hct 18 L MCV 87 MCH 31 MCHC 36 RDW 15 Plt Count 14 L* MPV 8.7 Sodium Potassium Chloride Carbon Dioxide Anion Gap BUN Creatinine Est GFR ( Amer) Est GFR (Non-Af Amer) BUN/Creatinine Ratio Glucose Calcium Ionized Calcium 1.11 L Phosphorus Magnesium Total Bilirubin AST ALT Alkaline Phosphatase Ammonia 46 Lactate Dehydrogenase Total Protein Albumin Globulin Albumin/Globulin Ratio Valproic Acid Blood Type Antibody Screen Crossmatch 10/15/18 05:25 WBC RBC Hgb Hct MCV MCH MCHC RDW Plt Count MPV Sodium 147 H Potassium 3.1 L Chloride 112 H Carbon Dioxide 25 Anion Gap 10 BUN 96 H Creatinine 4.08 H Est GFR ( Amer) 18.1 Est GFR (Non-Af Amer) 15.0 BUN/Creatinine Ratio 23.5 H Glucose 185 H Calcium 7.7 L Ionized Calcium Phosphorus 3.0 Magnesium 1.9 Total Bilirubin 1.00 AST 7 L ALT 7 Alkaline Phosphatase 39 Ammonia Lactate Dehydrogenase 355 H Total Protein 5.1 L Albumin 2.1 L Globulin 3.0 Albumin/Globulin Ratio 0.7 L Valproic Acid Blood Type Antibody Screen Crossmatch Imaging: CXR 10/15 - pending Assessment: 63y M w/pmhx of CAD, CHF, TIA, Seizures, renal stones, CKD, chronic anemia, Afib, LV diastolic dysfunction, h/o MV/TV repair; presented to ER via EMS from long term 10/09 for witnessed seizure in [facility]. Was febrile 100.8, tachycardic, hypotensive. Patient reported before event of abdominal pain and diarrhea+. He was started on sepsis protocol, noted to have MAUREEN. CT abd demonstrated left hydronephrosis with obstructing stone. Pradaxa reversed. Taken to IR for perc nephrostomy tube placement 10/09 -Severe sepsis with shock -E.coli bacteremia -acute pyelonephritis secondary to e.coli -Left hydronephrosis 2/2 to ureteral stone and obstruction; s/p Left perc nephrostomy 10/09 -acute decompensated LV diastolic heart failure -acute hypoxic resp failure, intubated 10/09 -suspected multilobar aspiration pneumonia -MAUREEN -Metabolic acidosis -h/o seizure; on Keppra and Dilantin -pancytopenia; s/p IVIG x2 days; s/p prbc and plt transfusion -afib Plan: Neuro- -off propofol and follows commands; some limitation though noted; maintain off for now -no pain noted on exam or asking patient -noted CT brain findings of encephalopmalacia, prior old? -no further seizures noted; was likely low on keppra and valproic acid as admission levels low -cont keppra 750mg bid and depakote po 750mg bid -keppra level sent 10/14, send valproic acid level to see therapeutic level -Delirium prec; avoid BDZ CVS- -BP improved; almost off levophed infusion -Afib; rate controlled; on dig and metoprolol for rate control; check dig level -AC has been off since for procedure, MAUREEN, and anemia -anemia; last PRBC 10/14, still hg 6.5; no overt bleeding noted; off AC for now; transfuse 2 prbc today -overall overload+, edema in LE and upper ext -cont lasix 60mg iv bid to augment output; d/c all ivf infusions -replete KCL IV -Titrate Pressors to Maintain MAP>65 Resp- -intubated; on 40% fio2 -secretions++; send sputum culture -CXR 10/15 with bilateral infiltrates/consolidations++, left basal appears > right -IV abx for aspiration coverage also -will try CPAP today, no plan for extubation yet, still tachypneic on vent -Wean Fio2 to keep sat>92% -Bronchodilators PRN, Aspiration prec, Pulmonary Toilet -VAP bundle ID- afebrile. wbc 2.0, leukopenic. -Blood cx E.coli + 10/10, urine cx 10/09 E.coli, nephrostomy cx e.coli+; all pansensitive -send repeat blood cultures to assess clearance -was on zosyn since 10/09 (4 days); now CTX (10/14) (day#2), will re-eval after cultures repeated but also follow sputum cultures GI- -on TF via OGT; nepro 30cc/hr -start free water OGT 300cc q6h -GI prophylaxis Renal- -MAUREEN, Cr still elevated but likely has peaked; suspect septic ATN/shock -clinically volume overloaded; making urine; on lasix 60mg iv bid -replete KCL IV 60meq -cont lasix 60mg iv bid for gross overload; off ivf now -noted hypernatremia but lungs are more from consolidations/aspiration than from pulmonary edema -start free water via ogt for correction of hypernatremia -no acidosis noted; K being repleted -Mg 1.9 -no indication for HD yet; close monitoring -Left obstructive nephropathy from renal stone; left per neph minimal drainage noted -strict I/O, replete to keep K>4, Mg>2 -peñaloza as indicated Heme- -anemia; s/p prbc x1 yesterday; hg 6.5; no bleeding, suspect BM suppression? sepsis? -given shock state, hg 6.5; transfuse 2 prbc today -thrombocytopenia 14; no bleeding; givne plt before but no improvement -hold further plt unless further drop -day #2 of IVIG , heme following -on solumedrol 60mg iv q8h Endo-Maintain BG<200, insulin protocol as needed Musculsk- pressure ulcer prophylaxis. Bedrest. Wounds- none Nutrition- nepro TF 30cc/hr; free water 300cc q6h to be started DVT prophylaxis: SCD; no heparin due to anemia/thrombocytopenia GI prophylaxis: ppi Central Line: yes Arterial Line: yes Peñaloza Cathetor: yes Disposition: Patient requires Critical Care/ICU for septic shock, acute respiratory failure, suspected aspiration pneumonia, MAUREEN Patient clinical status: guarded, critical Code Status: full code Total Critical Care time is 60 minutes, excluding procedures/teaching Rao Morgan MD Room Service Supervisor (Electronically Signed)
[2018-10-15] MEDS: Atorvastatin* 10 MG TAB PO SCH (17:18)
[2018-10-16] MEDS: methylPREDNISolone 125 MG* 2 ML VIAL IV SCH ×2 (00:50→09:32)
[2018-10-16 05:30] LABS: Hematocrit 23 % (42-52); Hemoglobin 8.3 g/dL (14.0-18.0); Mean Corpuscular HGB Conc 36 g/dL (31-36); Mean Corpuscular Hemoglobin 32 pg (27-31); Mean Corpuscular Volume 89 fL (80-94); Mean Platelet Volume 9.3 fL (7.4-10.4); Platelet Count 16 10^3/uL (150-450); Red Blood Count 2.61 10^6 /uL (4.18-5.48); Red Cell Distribution Width 15 % (10-15); White Blood Count 1.7 10^3/uL (3.5-10.8)
[2018-10-16 05:45] LABS: Albumin/Globulin Ratio 0.5 (1-3); BUN/Creatinine Ratio 28.4 (8-20); EGFR African American 20.3 (>60); EGFR Non-African American 16.8 (>60); Globulin 3.9 g/dL (2-4); Indirect Bilirubin 0.3 mg/dL (0.3-1.0); Magnesium 1.8 mg/dL (1.9-2.7); Phosphorus 2.7 mg/dL (2.5-5.0); Potassium 3.2 mmol/L (3.5-5.0); Total Bilirubin 0.9 mg/dL (0.2-1.0); Total Protein 5.9 g/dL (6.4-8.9)
[2018-10-16] MEDS ORDERED: KCL 20 MEQ/100 ML IVPREMIX* 20 MEQ/100 ML BAG ONE (08:32)
[2018-10-16] MEDS ORDERED: Magnesium Sulf 4 GM/100 ML IV* 4,000 MG/100 ML BAG IVPB ONE (09:25)
[2018-10-16] MEDS: Chlorhexidine MOUTHWASH 0.12%* 15 ML UDC SWISH SPIT SCH ×3 (09:31→22:10)
[2018-10-16] MEDS: Valproic Acid LIQ(*) 250 MG/5 ML UDC PO SCH ×2 (09:31→22:10)
[2018-10-16] MEDS: Pantoprazole IV* 40 MG IV SCH (09:31)
[2018-10-16] MEDS: Digoxin TAB* 0.125 MG PO SCH (09:32)
[2018-10-16] MEDS: Ferrous Sulfate LIQ* 300 MG/5 ML UDC G TUBE SCH ×2 (09:32→22:10)
[2018-10-16] MEDS: levETIRAcetam LIQ* 500 MG/5 ML UDC PO SCH ×2 (09:32→22:11)
[2018-10-16] MEDS: Metoprolol Tartrate TAB* 50 mg PO SCH (09:33)
[2018-10-16] MEDS: KCL 20 MEQ/100 ML IVPREMIX* 20 MEQ/100 ML BAG IV SCH ×4 (09:34→23:36)
--- NOTE | 2018-10-16 09:40 | PN ---
Progress Note - Progress Note Date of Service: 10/16/18 SOAP: Subjective: [Patient remains intubated with light sedation. ] Objective: [ Vital Signs: Temp Pulse Resp BP Pulse Ox 97.9 F 60 22 149/51 93 10/16/18 09:00 10/16/18 09:00 10/16/18 09:00 10/16/18 09:00 10/16/18 09:00 Artificial Tears (Lacrilube Oint*) 1 applic BOTH EYES Q4H PRN PRN Reason: DRY EYE Last Admin: 10/14/18 16:55 Dose: 1 drop Atorvastatin Calcium (Lipitor*) 10 mg PO QPM [facility] Last Admin: 10/15/18 17:18 Dose: 10 mg Chlorhexidine Gluconate (Peridex Mouth Wash 0.12%*) 15 ml SWISH SPIT TID [facility] Last Admin: 10/15/18 20:46 Dose: 15 ml Digoxin (Lanoxin Tab*) 0.125 mg PO EVERY OTHER DAY [facility] Duloxetine HCl (Cymbalta Cap*) 30 mg PO DAILY [facility] Last Admin: 10/15/18 08:09 Dose: 30 mg Ferrous Sulfate (Feosol Liq*) 300 mg G TUBE BID [facility] Last Admin: 10/15/18 20:48 Dose: 300 mg Furosemide (Lasix Iv*) 60 mg IV 0800,1700 [facility] Last Admin: 10/15/18 16:53 Dose: 60 mg Propofol (Diprivan*) 100 mls @ 1.896 mls/hr IV .(Initial Rate) [facility]; Protocol Last Admin: 10/13/18 13:16 Dose: 3.6 mls/hr Ceftriaxone Sodium 1 gm/ (Sodium Chloride) 50 mls @ 100 mls/hr IVPB Q24H [facility] Stop: 10/20/18 23:59 Last Admin: 10/15/18 11:30 Dose: 100 mls/hr Norepinephrine Bitartrate 4 mg (/ Sodium Chloride) 250 mls @ 3.75 mls/hr IV Q48H [facility]; Protocol Last Admin: 10/15/18 09:17 Dose: Not Given Magnesium Sulfate (Magnesium Sulf 4 Gm/100 Ml Iv*) 4,000 mg in 100 mls @ 33.333 mls/hr IVPB ONCE ONE Stop: 10/16/18 12:24 Potassium Chloride (Potassium Chloride 20 Meq/100 Ml Ivpremix*) 20 meq in 100 mls @ 50 mls/hr IV Q2H [facility] Stop: 10/16/18 15:59 Levetiracetam (Keppra Liq*) 500 mg PO BID [facility] Last Admin: 10/15/18 20:48 Dose: 500 mg Methylprednisolone Sodium Succinate (Solu-Medrol 125mg *) 60 mg IV Q8H [facility] Last Admin: 10/16/18 00:50 Dose: 60 mg Metoprolol Tartrate (Lopressor Tab*) 50 mg PO BID [facility] Last Admin: 10/15/18 20:48 Dose: 50 mg Morphine Sulfate (Morphine 4 Mg/Ml Vial (1 Ml)) 4 mg IV Q4H PRN PRN Reason: PAIN - MODERATE TO SEVERE Last Admin: 10/10/18 08:20 Dose: 4 mg Ondansetron HCl (Zofran Inj*) 4 mg IV Q6H PRN PRN Reason: NAUSEA Last Admin: 10/10/18 08:20 Dose: 4 mg Pantoprazole Sodium (Protonix Iv*) 40 mg IV DAILY [facility] Valproic Acid (Depakene Liq(*)) 750 mg PO BID [facility] Last Admin: 10/15/18 20:46 Dose: 750 mg Exam: Gen: Intubated, eyes open to voice HEENT: ET tube in place CV: RRR Resp: limited exam, no adventitious lung sounds Abd: soft, slightly hypoactive BS Ext: gross anasarca] Skin: no ecchymosis or petechiae Assessment: [63 yo male with a complicated PMH including prior valve replacements, seizure d /o and possible ITP who presented with fever and seizure with evidence of L hydronephrosis. Blood cultures positive for EColi c/w a urinary source. Now s/ p L nephrostomy tube placement who subsequently developed respiratory failure and now intubated. He was thrombocytopenic at admission with progressive cytopenias for which hematology was consulted. Presentation appeared c/w ITP as he did not respond to platelet transfusion and no other abnormalities appreciated on peripheral smea. He had been on several days of high dose steroids without improvement and subsequently received IVIG over 2d (10/14 and ). Platelets have not responded in a significant way and appears to have progressive anemia and leukopenia.] Plan: [1. Pancytopenia - no evidence of bleeding on exam - add on differential to today's CBC (if ANC <1000, institute neutropenic precautions and consider expanding abx coverage) - s/p 4 PRBCs throughout hospital stay (2-10/15, 1-10/14,10/11,10/11) - no significant response in platelet count noted after IVIG - ddx still includes sepsis, drug effect or primary bone marrow process - upon further review of his chart he did receive a single dose of heparin on - with limited records it is unclear whether he has received other heparin products in the last several months - although HIT is low on the differential a PF4 ab was ordered today as this may be a multifactorial process - if there is no improvement in blood counts on repeat labs tomorrow then BMBx should be considered 2. Respiratory failure - remains intubated 3. E.Coli septicemia of urinary source s/p nephrostomy tube placement 4. Seizure d/o 5. ARF with anasarca Hematology service will continue to follow ]
[2018-10-16] MEDS: DULoxetine DR CAP* 30 MG CAP.DR PO SCH (10:51)
[2018-10-16] MEDS: Furosemide IV* 10 MG/ML VIAL (40 MG) IV SCH ×2 (11:09→16:46)
--- NOTE | 2018-10-16 11:36 | PN ---
Progress Note - Progress Note Date of Service: 10/16/18 Note: Progress Note -- Critical Care 24 hour events/significant events: -remains intubated, off sedation; afebrile, no pressors -follows commands, wakens -CPAP trial yesterday evening but became tachypneic, hence failed, on AC overnight -this morning tried on CPAP but tachypneic and shallow breaths, failed, back on AC mode -making urine Tele: NSR Vitals: Vital Signs Temp 97.9 F 10/16/18 09:00 Pulse 67 10/16/18 09:32 Resp 22 10/16/18 09:00 BP 149/51 10/16/18 09:00 Pulse Ox 93 10/16/18 09:00 Intake & Output 10/15/18 10/16/18 10/16/18 18:59 06:59 18:59 Intake Total 2050.9 1539.1 Output Total 735 1130 225 Balance 1315.9 409.1 -225 Weight 87 kg Intake: IV Fluids 97 86 NS 97 86 IVPB 382 ABX - CEFTRIAXONE 54 Potassium Chloride 328 Medicated IV 777.9 1.1 IVIG 759 Levophed 18.9 1.1 Tube Feeding 284 522 Tube Feeding Flush Amount 150 600 Packed Cells 355 300 NG Tube Irrigate Amount 30 Pigtail Drain 5 Output: Peñaloza 735 1120 225 Nephrostomy #1 10 Other: Date of Last Bowel 10/16/18 Movement # Bowel Movements 1 1 Estimated Stool Amount Large Small O2/Vent: AC 40% fio2 Infusions: levophed off; propofol off Medications: Artificial Tears (Lacrilube Oint*) 1 applic BOTH EYES Q4H PRN PRN Reason: DRY EYE Last Admin: 10/14/18 16:55 Dose: 1 drop Atorvastatin Calcium (Lipitor*) 10 mg PO QPM [facility] Last Admin: 10/15/18 17:18 Dose: 10 mg Chlorhexidine Gluconate (Peridex Mouth Wash 0.12%*) 15 ml SWISH SPIT TID [facility] Last Admin: 10/16/18 09:31 Dose: 15 ml Digoxin (Lanoxin Tab*) 0.125 mg PO EVERY OTHER DAY [facility] Last Admin: 10/16/18 09:32 Dose: 0.125 mg Duloxetine HCl (Cymbalta Cap*) 30 mg PO DAILY [facility] Last Admin: 10/16/18 10:51 Dose: 30 mg Ferrous Sulfate (Feosol Liq*) 300 mg G TUBE BID [facility] Last Admin: 10/16/18 09:32 Dose: 300 mg Furosemide (Lasix Iv*) 60 mg IV 0800,1700 [facility] Last Admin: 10/16/18 11:09 Dose: 60 mg Propofol (Diprivan*) 100 mls @ 1.896 mls/hr IV .(Initial Rate) [facility]; Protocol Last Admin: 10/13/18 13:16 Dose: 3.6 mls/hr Ceftriaxone Sodium 1 gm/ (Sodium Chloride) 50 mls @ 100 mls/hr IVPB Q24H [facility] Stop: 10/20/18 23:59 Last Admin: 10/15/18 11:30 Dose: 100 mls/hr Norepinephrine Bitartrate 4 mg (/ Sodium Chloride) 250 mls @ 3.75 mls/hr IV Q48H [facility]; Protocol Last Admin: 10/15/18 09:17 Dose: Not Given Magnesium Sulfate (Magnesium Sulf 4 Gm/100 Ml Iv*) 4,000 mg in 100 mls @ 33.333 mls/hr IVPB ONCE ONE Stop: 10/16/18 12:24 Last Admin: 10/16/18 10:51 Dose: 33.333 mls/hr Potassium Chloride (Potassium Chloride 20 Meq/100 Ml Ivpremix*) 20 meq in 100 mls @ 50 mls/hr IV Q2H [facility] Stop: 10/16/18 15:59 Last Admin: 10/16/18 10:49 Dose: 50 mls/hr Levetiracetam (Keppra Liq*) 500 mg PO BID [facility] Last Admin: 10/16/18 09:32 Dose: 500 mg Methylprednisolone Sodium Succinate (Solu-Medrol 125mg *) 60 mg IV Q8H [facility] Last Admin: 10/16/18 09:32 Dose: 60 mg Metoprolol Tartrate (Lopressor Tab*) 50 mg PO BID [facility] Last Admin: 10/16/18 09:33 Dose: 50 mg Morphine Sulfate (Morphine 4 Mg/Ml Vial (1 Ml)) 4 mg IV Q4H PRN PRN Reason: PAIN - MODERATE TO SEVERE Last Admin: 10/10/18 08:20 Dose: 4 mg Ondansetron HCl (Zofran Inj*) 4 mg IV Q6H PRN PRN Reason: NAUSEA Last Admin: 10/10/18 08:20 Dose: 4 mg Pantoprazole Sodium (Protonix Iv*) 40 mg IV DAILY [facility] Last Admin: 10/16/18 09:31 Dose: 40 mg Valproic Acid (Depakene Liq(*)) 750 mg PO BID [facility] Last Admin: 10/16/18 09:31 Dose: 750 mg Physical Exam: Constitutional: intubated, awakens, follows commands, distress/diaphoresis during CPAP Head: normocephalic, atraumatic Eyes: no pallor, no icterus ENT: moist mucous membranes Neck: soft, supple, no jvd CVS: normal rate, regular, no murmur Resp: bilateral air entry, bilateral rhonchi and scattered rhales+, no wheeze, no acc muscle use Abdomen/GI: soft, nontender, nondistended, BS+ Ext/Msk: warm, pulses+, Edema+ 3+ in LE and Upper Ext Skin: intact, warm Neuro: awake, alert, unable to assess orientation, moving ext spontaneously, moves some to command, able to life head on command; not moving left leg like yesterday Labs: Laboratory Results - last 24 hr 10/13/18 10/14/18 10/15/18 05:55 11:27 13:52 WBC RBC Hgb Hct MCV MCH MCHC RDW Plt Count MPV Sodium Potassium Chloride Carbon Dioxide Anion Gap BUN Creatinine Est GFR ( Amer) Est GFR (Non-Af Amer) BUN/Creatinine Ratio Glucose Calcium Phosphorus Magnesium Total Bilirubin Direct Bilirubin Indirect Bilirubin AST ALT Alkaline Phosphatase Total Protein Albumin Globulin Albumin/Globulin Ratio Digoxin 1.7 Levetiracetam 70.8 H Blood Type O Positive Antibody Screen Negative Crossmatch See Detail 10/16/18 10/16/18 04:48 04:48 WBC 1.7 L RBC 2.61 L Hgb 8.3 L Hct 23 L MCV 89 MCH 32 H MCHC 36 RDW 15 Plt Count 16 L* MPV 9.3 Sodium 147 H Potassium 3.2 L Chloride 112 H Carbon Dioxide 25 Anion Gap 10 BUN 105 H Creatinine 3.70 H Est GFR ( Amer) 20.3 Est GFR (Non-Af Amer) 16.8 BUN/Creatinine Ratio 28.4 H Glucose 165 H Calcium 8.0 L Phosphorus 2.7 Magnesium 1.8 L Total Bilirubin 0.90 Direct Bilirubin 0.60 H Indirect Bilirubin 0.3 AST 7 L ALT 6 L Alkaline Phosphatase 44 Total Protein 5.9 L Albumin 2.0 L Globulin 3.9 Albumin/Globulin Ratio 0.5 L Digoxin Levetiracetam Blood Type Antibody Screen Crossmatch Imaging: CXR 10/15 - bilateral infiltrates+ CXR 10/16 - ett above jamie; bilateral infiltrates; some imporvement on left lower lobe Assessment: 63y M w/pmhx of CAD, CHF, TIA, Seizures, renal stones, CKD, chronic anemia, Afib, LV diastolic dysfunction, h/o MV/TV repair; presented to ER via EMS from residential 10/09 for witnessed seizure in [place]. Was febrile 100.8, tachycardic, hypotensive. Patient reported before event of abdominal pain and diarrhea+. He was started on sepsis protocol, noted to have MAUREEN. CT abd demonstrated left hydronephrosis with obstructing stone. Pradaxa reversed. Taken to IR for perc nephrostomy tube placement 10/09 -Severe sepsis with shock -E.coli bacteremia -acute pyelonephritis secondary to e.coli -Left hydronephrosis 2/2 to ureteral stone and obstruction; s/p Left perc nephrostomy 10/09 -acute decompensated LV diastolic heart failure -acute hypoxic resp failure, intubated 10/09 -suspected multilobar aspiration pneumonia -MAUREEN -Metabolic acidosis -h/o seizure; on Keppra and Dilantin -pancytopenia; s/p IVIG x2 days; s/p prbc and plt transfusion -afib Plan: Neuro- -off propofol , follows commands; not able to move all ext, history of wheelchair bound status, TBI in past? keep off sedation, PRN -no pain noted on exam -noted CT brain findings of encephalopmalacia, prior old? -elevated keppra level yesterday; dec to 500mg BID; valproic acid level pending ; cont 750mg bid -will check levels saturday to follow if incr keppra needed -Delirium prec; avoid BDZ CVS- -BP stable; off pressors -Afib; rate controlled; on dig and metoprolol for rate control; dig 1.7 10/15 -AC has been off since for procedure, MAUREEN, and anemia -anemia; hg 8.3 post 2 units 10/15; no bleeeding -overall overload+, edema in LE and upper ext -cont lasix 60mg iv bid to augment output -replete KCL IV, IV MgSulfate -Titrate Pressors to Maintain MAP>65 Resp- -intubated; on 40% fio2 -secretions+; sputum culture without organisms so far -CPAP trial this morning and became tachypneic, diaphoretic, failed; changed back to AC mode -CXR 10/16 with persistent infiltrates, not much change; no further incr in fio2 req -IV abx for aspiration coverage with CTX -Wean Fio2 to keep sat>92% -Bronchodilators PRN, Aspiration prec, Pulmonary Toilet -VAP bundle ID- afebrile. wbc 1.7, leukopenic. -Blood cx E.coli + 10/10, urine cx 10/09 E.coli, nephrostomy cx e.coli+; all pansensitive -pending repeat blood cultures to assess clearance -Cont CTX (10/14) (day#3, so far day 7 of abx total), will re-eval after cultures repeated but also follow sputum cultures GI- -on TF via OGT; nepro 30cc/hr -free water OGT -GI prophylaxis Renal- -MAUREEN; suspect septic ATN/shock -Cr decreased; likely peaked; BUN still rising; nonoliguric MAUREEN; most volume from ivig/tube feeds yesterday -Na stable, incr free water 400 q6h -clinically volume overloaded; making urine; on lasix 60mg iv bid -replete KCL IV 60meq; Replete MgS 4gm IV -no acidosis noted -no indication for HD ; close monitoring -Left obstructive nephropathy from renal stone; left per neph minimal drainage noted -strict I/O, replete to keep K>4, Mg>2 -peñaloza as indicated Heme- -anemia; s/p prbc x2 yesterday; hg 8.3 -no bleeding, suspect BM suppression? sepsis? drug effect from ceph vs valproic acid? though has always been on valproic acid -d/c steroids; not responding -s/p IVIG x2 10/14 and 10/15; since no change noted yet, plan for possible BM biopsy by heme? -thrombocytopenia 16; no bleeding; givne plt before but no improvement; watch for bleeding -hold further plt unless further drop Endo-Maintain BG<200, insulin protocol as needed Musculsk- pressure ulcer prophylaxis. Bedrest. Wounds- none Nutrition- nepro TF 30cc/hr; free water DVT prophylaxis: SCD; no heparin due to anemia/thrombocytopenia GI prophylaxis: ppi Central Line: yes Arterial Line: yes Peñaloza Cathetor: yes Disposition: Patient requires Critical Care/ICU for septic shock, acute respiratory failure, suspected aspiration pneumonia, MAUREEN Patient clinical status: guarded, critical Code Status: full code Total Critical Care time is 40 minutes, excluding procedures/teaching Rao Morgan MD Radio Broadcaster (Electronically Signed)
[2018-10-16] MEDS: cefTRIAXone(*) 1 GM in NS 0.9% 50 ML* 50 ML IVPB SCH (12:29)
[2018-10-16 13:11] LABS: ABS Lymphocytes 0.2 10^3/ul (1.0-4.8); ABS Monocytes 0.1 10^3/ul (0-0.8); ABS Neutrophils 1.3 10^3/ul (1.5-7.7); Eosinophil % 0.6 %; Lymphocyte % 10.4 %; Nucleated Red Blood Cells % 0.3
[2018-10-16] MEDS: Morphine 4 MG/ML VIAL (1 ml) 4 MG/ML VIAL IV PRN (16:46)
[2018-10-16] MEDS: Atorvastatin* 10 MG TAB PO SCH (17:56)
[2018-10-16 22:04] LABS: Free Valproic Acid 8 mcg/mL (5 - 25)
[2018-10-16] MEDS: Metoprolol Tartrate TAB* 25 MG PO SCH (22:45)
[2018-10-17] MEDS: KCL 20 MEQ/100 ML IVPREMIX* 20 MEQ/100 ML BAG IV SCH (02:36)
[2018-10-17] MEDS: Morphine 4 MG/ML VIAL (1 ml) 4 MG/ML VIAL IV PRN ×2 (05:04→15:48)
[2018-10-17 05:41] LABS: INR 1.43 (0.82-1.09)
[2018-10-17 05:46] LABS: ALT < 3 U/L (7-52); AST 9 U/L (13-39); Albumin/Globulin Ratio 0.6 (1-3); Alkaline Phosphatase 53 U/L (34-104); Blood Urea Nitrogen 113 mg/dL (6-24); CO2 Carbon Dioxide 26 mmol/L (22-32); Calcium 8.2 mg/dL (8.6-10.3); Globulin 3.5 g/dL (2-4); Glucose 130 mg/dL (70-100); Indirect Bilirubin 0.4 mg/dL (0.3-1.0); Magnesium 2.4 mg/dL (1.9-2.7); Phosphorus 2.5 mg/dL (2.5-5.0); Potassium 3.5 mmol/L (3.5-5.0); Total Protein 5.5 g/dL (6.4-8.9)
[2018-10-17 05:48] LABS: Anion Gap 8 mmol/L (2-11); Chloride 113 mmol/L (101-111); Sodium 147 mmol/L (135-145)
[2018-10-17 05:49] LABS: Hematocrit 25 % (42-52); Hemoglobin 8.9 g/dL (14.0-18.0); Mean Corpuscular HGB Conc 35 g/dL (31-36); Mean Corpuscular Hemoglobin 31 pg (27-31); Mean Corpuscular Volume 90 fL (80-94); Mean Platelet Volume 9.3 fL (7.4-10.4); Platelet Count 16 10^3/uL (150-450); Red Blood Count 2.83 10^6 /uL (4.18-5.48); Red Cell Distribution Width 15 % (10-15); White Blood Count 2.2 10^3/uL (3.5-10.8)
[2018-10-17] MEDS: Pantoprazole IV* 40 MG IV SCH (08:00)
[2018-10-17] MEDS: Chlorhexidine MOUTHWASH 0.12%* 15 ML UDC SWISH SPIT SCH ×3 (08:00→21:24)
[2018-10-17] MEDS: Furosemide IV* 10 MG/ML VIAL (40 MG) IV SCH ×2 (08:00→16:13)
[2018-10-17] MEDS: Valproic Acid LIQ(*) 250 MG/5 ML UDC PO SCH ×2 (08:01→21:25)
[2018-10-17] MEDS: Ferrous Sulfate LIQ* 300 MG/5 ML UDC G TUBE SCH ×2 (08:01→21:25)
[2018-10-17] MEDS: levETIRAcetam LIQ* 500 MG/5 ML UDC PO SCH ×2 (08:01→21:25)
[2018-10-17] MEDS: DULoxetine DR CAP* 30 MG CAP.DR PO SCH (08:02)
[2018-10-17] MEDS: Metoprolol Tartrate TAB* 25 MG PO SCH ×2 (08:02→21:25)
[2018-10-17] MEDS: D5W 1000 ML BAG* 1,000 ML IV SCH ×2 (10:02→18:35)
[2018-10-17] MEDS: cefTRIAXone(*) 1 GM in NS 0.9% 50 ML* 50 ML IVPB SCH (11:13)
--- NOTE | 2018-10-17 11:33 | PN ---
Progress Note - Progress Note Date of Service: 10/17/18 Note: Progress Note -- Critical Care 24 hour events/significant events: -remains intubated, off sedation; afebrile, no pressors -follows commands, wakens -CPAP trial yesterday evening but became tachypneic, hence failed, on AC overnight -this morning tried on CPAP but tachypneic and shallow breaths, failed, back on AC mode -making urine Tele: NSR; less ectopy this morning Vitals: Vital Signs Temp 99.0 F 10/17/18 10:00 Pulse 80 10/17/18 10:00 Resp 27 10/17/18 10:00 BP 140/53 10/17/18 10:00 Pulse Ox 89 10/17/18 10:00 Intake & Output 10/16/18 10/17/18 10/17/18 18:59 06:59 18:59 Intake Total 1280 1079 0 Output Total 1280 1260 580 Balance 0 -181 -580 Weight 88.949 kg Intake: IV Fluids 560 273 NS 531 273 Potassium Chloride 29 Oral 0 0 Tube Feeding 220 348 Tube Feeding Flush Amount 500 458 Output: Peñaloza 1280 1260 580 Nephrostomy #2 0 Other: Estimated Stool Amount Medium O2/Vent: AC 40% fio2 Infusions: heplock Medications: Artificial Tears (Lacrilube Oint*) 1 applic BOTH EYES Q4H PRN PRN Reason: DRY EYE Last Admin: 10/14/18 16:55 Dose: 1 drop Atorvastatin Calcium (Lipitor*) 10 mg PO QPM [facility] Last Admin: 10/16/18 17:56 Dose: 10 mg Chlorhexidine Gluconate (Peridex Mouth Wash 0.12%*) 15 ml SWISH SPIT TID [facility] Last Admin: 10/17/18 08:00 Dose: 15 ml Digoxin (Lanoxin Tab*) 0.125 mg PO EVERY OTHER DAY [facility] Last Admin: 10/16/18 09:32 Dose: 0.125 mg Duloxetine HCl (Cymbalta Cap*) 30 mg PO DAILY [facility] Last Admin: 10/17/18 08:02 Dose: 30 mg Ferrous Sulfate (Feosol Liq*) 300 mg G TUBE BID [facility] Last Admin: 10/17/18 08:01 Dose: 300 mg Furosemide (Lasix Iv*) 60 mg IV 0800,1700 [facility] Last Admin: 10/17/18 08:00 Dose: 60 mg Propofol (Diprivan*) 100 mls @ 1.896 mls/hr IV .(Initial Rate) [facility]; Protocol Last Admin: 10/13/18 13:16 Dose: 3.6 mls/hr Ceftriaxone Sodium 1 gm/ (Sodium Chloride) 50 mls @ 100 mls/hr IVPB Q24H [facility] Stop: 10/20/18 23:59 Last Admin: 10/17/18 11:13 Dose: 100 mls/hr Dextrose (D5w 1000 Ml Bag*) 1,000 mls @ 100 mls/hr IV PER RATE [facility] Last Admin: 10/17/18 10:02 Dose: 100 mls/hr Levetiracetam (Keppra Liq*) 500 mg PO BID [facility] Last Admin: 10/17/18 08:01 Dose: 500 mg Metoprolol Tartrate (Lopressor Tab*) 25 mg PO BID [facility] Last Admin: 10/17/18 08:02 Dose: 25 mg Morphine Sulfate (Morphine 4 Mg/Ml Vial (1 Ml)) 4 mg IV Q4H PRN PRN Reason: PAIN Last Admin: 10/17/18 05:04 Dose: 4 mg Ondansetron HCl (Zofran Inj*) 4 mg IV Q6H PRN PRN Reason: NAUSEA Last Admin: 10/10/18 08:20 Dose: 4 mg Pantoprazole Sodium (Protonix Iv*) 40 mg IV DAILY [facility] Last Admin: 10/17/18 08:00 Dose: 40 mg Valproic Acid (Depakene Liq(*)) 750 mg PO BID [facility] Last Admin: 10/17/18 08:01 Dose: 750 mg Physical Exam: Constitutional: intubated, awakens, follows commands, distress/diaphoresis during CPAP Head: normocephalic, atraumatic Eyes: no pallor, no icterus ENT: moist mucous membranes Neck: soft, supple, no jvd CVS: normal rate, regular, no murmur Resp: bilateral air entry, bilateral rhonchi and scattered rhales+, no wheeze, no acc muscle use Abdomen/GI: soft, nontender, nondistended, BS+ Ext/Msk: warm, pulses+, Edema+ 3+ in LE and Upper Ext Skin: intact, warm Neuro: awake, alert, unable to assess orientation, moving ext spontaneously, moves some to command, able to life head on command; not moving left leg like yesterday Labs: Laboratory Results - last 24 hr 10/15/18 10/16/18 10/17/18 13:52 04:48 05:08 WBC 1.7 L RBC 2.61 L Hgb 8.3 L Hct 23 L MCV 89 MCH 32 H MCHC 36 RDW 15 Plt Count 16 L* MPV 9.3 Neut % (Auto) 80.9 Lymph % (Auto) 10.4 [place] % (Auto) 7.0 Eos % (Auto) 0.6 Baso % (Auto) 1.1 Absolute Neuts (auto) 1.3 L Absolute Lymphs (auto) 0.2 L Absolute Monos (auto) 0.1 Absolute Eos (auto) 0.0 Absolute Basos (auto) 0.0 Absolute Nucleated RBC 0.0 Neutrophils % 82.0 Lymphocytes % 11.0 Monocytes % 7.0 Nucleated RBC % 0.3 Normal RBC Morphology Normal INR (Anticoag Therapy) Sodium 147 H Potassium 3.5 Chloride 113 H Carbon Dioxide 26 Anion Gap 8 BUN 113 H Creatinine 3.32 H Est GFR ( Amer) 23.0 Est GFR (Non-Af Amer) 19.0 BUN/Creatinine Ratio 34.0 H Glucose 130 H Calcium 8.2 L Phosphorus 2.5 Magnesium 2.4 Total Bilirubin 0.90 Direct Bilirubin 0.50 H Indirect Bilirubin 0.4 AST 9 L ALT < 3 L Alkaline Phosphatase 53 Total Protein 5.5 L Albumin 2.0 L Globulin 3.5 Albumin/Globulin Ratio 0.6 L Free Valproic Acid 8 Total Valproic Acid 23 L 10/17/18 10/17/18 05:08 05:08 WBC 2.2 L RBC 2.83 L Hgb 8.9 L Hct 25 L MCV 90 MCH 31 MCHC 35 RDW 15 Plt Count 16 L* MPV 9.3 Neut % (Auto) Lymph % (Auto) [place] % (Auto) Eos % (Auto) Baso % (Auto) Absolute Neuts (auto) Absolute Lymphs (auto) Absolute Monos (auto) Absolute Eos (auto) Absolute Basos (auto) Absolute Nucleated RBC Neutrophils % Lymphocytes % Monocytes % Nucleated RBC % Normal RBC Morphology INR (Anticoag Therapy) 1.43 H Sodium Potassium Chloride Carbon Dioxide Anion Gap BUN Creatinine Est GFR ( Amer) Est GFR (Non-Af Amer) BUN/Creatinine Ratio Glucose Calcium Phosphorus Magnesium Total Bilirubin Direct Bilirubin Indirect Bilirubin AST ALT Alkaline Phosphatase Total Protein Albumin Globulin Albumin/Globulin Ratio Free Valproic Acid Total Valproic Acid Imaging: CXR 10/15 - bilateral infiltrates+ CXR 10/16 - ett above jamie; bilateral infiltrates; some imporvement on left lower lobe Assessment: 63y M w/pmhx of CAD, CHF, TIA, Seizures, renal stones, CKD, chronic anemia, Afib, LV diastolic dysfunction, h/o MV/TV repair; presented to ER via EMS from [place] 10[place]09 for witnessed seizure in [place]. Was febrile 100.8, tachycardic, hypotensive. Patient reported before event of abdominal pain and diarrhea+. He was started on sepsis protocol, noted to have MAUREEN. CT abd demonstrated left hydronephrosis with obstructing stone. Pradaxa reversed. Taken to IR for perc nephrostomy tube placement 10/09 -Severe sepsis with shock -E.coli bacteremia -acute pyelonephritis secondary to e.coli -Left hydronephrosis 2/2 to ureteral stone and obstruction; s/p Left perc nephrostomy 10/09 -acute decompensated LV diastolic heart failure -acute hypoxic resp failure, intubated 10/09 -suspected multilobar aspiration pneumonia -MAUREEN -Metabolic acidosis -h/o seizure; on Keppra and Dilantin -pancytopenia; s/p IVIG x2 days; s/p prbc and plt transfusion -afib Plan: Neuro- -off sedation , follows commands; baseline Left sided weakness 2/2 to CVA; moves right side on command -no pain noted on exam -noted CT brain findings of encephalopmalacia, prior old? -Cont keppra 500mg BID; check level tomorrow given improving renal function -free valproic acid level 8 (normal), cont 750mg bid -check keppra level tomorrow -Delirium prec; avoid BDZ CVS- -BP stable; off pressors -Afib; rate controlled; on dig and metoprolol for rate control; dig 1.7 10/15 -AC has been off since for procedure, MAUREEN, and anemia -anemia; stable hg -overall overload+, edema in LE and upper ext -cont lasix 60mg iv bid to augment output -replete KCL IV, IV MgSulfate as needed -Maintain MAP>65 Resp- -intubated; on 40% fio2 -secretions+; sputum culture without organisms so far -CPAP trial yesterday but diaphoretic, abd breathing+ -CPAP this morning with same, failed wtih 03/05; tolerating 30/8 and will continue to wean down -CXR 10/16 with persistent infiltrates, not much change; no further incr in fio2 req -IV abx for aspiration coverage with CTX -Wean Fio2 to keep sat>92% -Bronchodilators PRN, Aspiration prec, Pulmonary Toilet -VAP bundle ID- afebrile. wbc 2.2, leukopenic. -Blood cx E.coli + 10/10, urine cx 10/09 E.coli, nephrostomy cx e.coli+; all pansensitive -repeat blood cx 10/15 negative -sputum culture yeast +1; likely just colonized -Cont CTX (10/14) (day#4, so far day 8 of abx total); atleast 10 days for bacteremia GI- -on TF via OGT; nepro 30cc/hr -d/c free water -GI prophylaxis Renal- -MAUREEN; suspect septic ATN/shock -Cr decreasing; BUN still rising; nonoliguric MAUREEN -Hypernatremia; d/c free water ngt; start d5w 100cc/hr, repeat BMP in evening -clinically volume overloaded; making urine; on lasix 60mg iv bid -replete IV KCL -no acidosis -no indication for HD ; close monitoring -Left obstructive nephropathy from renal stone; left per neph minimal drainage noted -strict I/O, replete to keep K>4, Mg>2 -peñaloza as indicated Heme- -anemia; hg stable -no bleeding, suspect BM suppression? sepsis? drug effect from ceph vs valproic acid? though has always been on valproic acid -s/p steroids; s/p IVIG x2 10/14 and 10/15; since no change noted yet, plan for possible BM biopsy by loretta? -thrombocytopenia 16; no bleeding; givne plt before but no improvement; watch for bleeding Endo-Maintain BG<200, insulin protocol as needed Musculsk- pressure ulcer prophylaxis. Bedrest. Wounds- none Nutrition- nepro TF 30cc/hr DVT prophylaxis: SCD; no heparin due to anemia/thrombocytopenia GI prophylaxis: ppi Central Line: yes Arterial Line: yes Peñaloza Cathetor: yes Disposition: Patient requires Critical Care/ICU for septic shock, acute respiratory failure, suspected aspiration pneumonia, MAUREEN Patient clinical status: guarded, critical Code Status: full code Total Critical Care time is 40 minutes, excluding procedures/teaching Rao Morgan MD Brace Maker (Electronically Signed)
[2018-10-17] MEDS: Atorvastatin* 10 MG TAB PO SCH (17:33)
[2018-10-17 19:06] LABS: HIT ELISA 0.149 OD (<0.400)
--- NOTE | 2018-10-17 19:23 | PN ---
Progress Note - Progress Note Date of Service: 10/17/18 SOAP: Subjective: []Intubated Persistent MS change, unexplained Acetaminophen (Tylenol Adult Liq*) 650 mg PO Q6H PRN PRN Reason: FEVER/PAIN Artificial Tears (Lacrilube Oint*) 1 applic BOTH EYES Q4H PRN PRN Reason: DRY EYE Last Admin: 10/14/18 16:55 Dose: 1 drop Atorvastatin Calcium (Lipitor*) [address] [facility] Last Admin: 10/17/18 17:33 Dose: 10 mg Chlorhexidine Gluconate (Peridex Mouth Wash 0.12%*) [address] [facility] Last Admin: 10/17/18 13:29 Dose: 15 ml Digoxin (Lanoxin Tab*) 0.125 mg PO EVERY OTHER DAY [facility] Last Admin: 10/16/18 09:32 Dose: 0.125 mg Duloxetine HCl (Cymbalta Cap*) [address] [facility] Last Admin: 10/17/18 08:02 Dose: 30 mg Ferrous Sulfate (Feosol Liq*) [address] [facility] Last Admin: 10/17/18 08:01 Dose: 300 mg Furosemide (Lasix Iv*) 60 mg IV 0800,1700 [facility] Last Admin: 10/17/18 16:13 Dose: 60 mg Propofol (Diprivan*) 100 mls @ 1.896 mls/hr IV .(Initial Rate) [facility]; Protocol Last Admin: 10/13/18 13:16 Dose: 3.6 mls/hr Ceftriaxone Sodium 1 gm/ (Sodium Chloride) 50 mls @ 100 mls/hr IVPB Q24H [facility] Stop: 10/20/18 23:59 Last Admin: 10/17/18 11:13 Dose: 100 mls/hr Dextrose (D5w 1000 Ml Bag*) 1,000 mls @ 100 mls/hr IV PER RATE [facility] Last Admin: 10/17/18 18:35 Dose: 100 mls/hr Levetiracetam (Keppra Liq*) [address] [facility] Last Admin: 10/17/18 08:01 Dose: 500 mg Metoprolol Tartrate (Lopressor Tab*) [address] [facility] Last Admin: 10/17/18 08:02 Dose: 25 mg Morphine Sulfate (Morphine 4 Mg/Ml Vial (1 Ml)) 4 mg IV Q4H PRN PRN Reason: PAIN Last Admin: 10/17/18 15:48 Dose: 4 mg Ondansetron HCl (Zofran Inj*) 4 mg IV Q6H PRN PRN Reason: NAUSEA Last Admin: 10/10/18 08:20 Dose: 4 mg Pantoprazole Sodium (Protonix Iv*) [address] [facility] Last Admin: 10/17/18 08:00 Dose: 40 mg Valproic Acid (Depakene Liq(*)) [address] [facility] Last Admin: 10/17/18 08:01 Dose: 750 mg Objective: [] Vital Signs Temp Pulse Resp BP Pulse Ox 97.2 F 73 23 134/45 94 10/17/18 18:00 10/17/18 18:00 10/17/18 18:00 10/17/18 18:00 10/17/18 18:00 Exam: Gen: Intubated, eyes open to voice HEENT: ET tube in place CV: RRR Resp: limited exam, no adventitious lung sounds Abd: soft, slightly hypoactive BS, obese Ext: gross anasarca Skin: ecchymosis dorsal neck, no bleeding from IV sites, no other bruising Neuro: squeez with R hand Assessment: [63 yo male with a complicated PMH including prior valve replacements, seizure d /o and possible ITP who presented with fever and seizure with evidence of L hydronephrosis. Blood cultures positive for EColi c/w a urinary source. Now s/ p L nephrostomy tube placement who subsequently developed respiratory failure and now intubated. He was thrombocytopenic at admission with progressive cytopenias for which hematology was consulted. Presentation appeared c/w ITP as he did not respond to platelet transfusion and no other abnormalities appreciated on peripheral smear. Now s/p HD steroids and 2 G/kg IVIG w/o improvement in plts. Worsening anemia and leukopenia through 10/16, blood counts with slight improvement today. Ddx: Suspect consumption from sepsis with possible marrow suppression from cephalosporin. In that setting blood counts should improve. Lack of response to IVIG argues against ITP, given MS change, renal failure TTP is possible, could have intrinsic marrow disease but less likely. Plan: [1. Thrombocytopenia. - May respond to transfusions after IVIG in resolution of sepsis. - Tx for pltx < 10,000 or for active bleeding - Will check manual blood film - Send SPEP, [id number] - LDH with am labs 2. Anemia. Improving, will check Retic count and if increased argues against marrow failure. 3. Leukopenia. Sepsis vs Abx, improving today. 4. I do not see actionable information from a bone marrow at this time. Will hold on procedure until improved from acute illness. ]
[2018-10-17 20:21] LABS: BUN/Creatinine Ratio 36.7 (8-20); Calcium 7.8 mg/dL (8.6-10.3); EGFR African American 26.2 (>60); EGFR Non-African American 21.6 (>60); Potassium 3.1 mmol/L (3.5-5.0)
[2018-10-18 05:44] LABS: INR 1.6 (0.82-1.09)
[2018-10-18 05:47] LABS: Hematocrit 25 % (42-52); Hemoglobin 8.6 g/dL (14.0-18.0); Mean Corpuscular HGB Conc 35 g/dL (31-36); Mean Corpuscular Hemoglobin 31 pg (27-31); Mean Corpuscular Volume 90 fL (80-94); Mean Platelet Volume 9.6 fL (7.4-10.4); Platelet Count 14 10^3/uL (150-450); Red Blood Count 2.76 10^6 /uL (4.18-5.48); Red Cell Distribution Width 15 % (10-15); White Blood Count 2.2 10^3/uL (3.5-10.8)
[2018-10-18] MEDS: Morphine 4 MG/ML VIAL (1 ml) 4 MG/ML VIAL IV PRN ×2 (05:53→11:18)
[2018-10-18 05:55] LABS: LDH 260 U/L (140-271)
[2018-10-18 05:57] LABS: ALT < 3 U/L (7-52); AST 10 U/L (13-39); Albumin/Globulin Ratio 0.7 (1-3); Alkaline Phosphatase 46 U/L (34-104); Anion Gap 9 mmol/L (2-11); BUN/Creatinine Ratio 38.7 (8-20); Blood Urea Nitrogen 104 mg/dL (6-24); CO2 Carbon Dioxide 26 mmol/L (22-32); Calcium 7.9 mg/dL (8.6-10.3); Chloride 107 mmol/L (101-111); EGFR African American 29.3 (>60); EGFR Non-African American 24.2 (>60); Glucose 127 mg/dL (70-100); Indirect Bilirubin 0.5 mg/dL (0.3-1.0); Magnesium 1.8 mg/dL (1.9-2.7); Phosphorus 2.3 mg/dL (2.5-5.0); Potassium 2.8 mmol/L (3.5-5.0); Sodium 142 mmol/L (135-145)
[2018-10-18] MEDS: Furosemide IV* 10 MG/ML VIAL (40 MG) IV SCH ×2 (08:46→15:57)
[2018-10-18] MEDS: Digoxin TAB* 0.125 MG PO SCH (08:53)
[2018-10-18] MEDS: Metoprolol Tartrate TAB* 25 MG PO SCH ×2 (08:54→21:18)
[2018-10-18] MEDS: DULoxetine DR CAP* 30 MG CAP.DR PO SCH (08:54)
[2018-10-18] MEDS: Ferrous Sulfate LIQ* 300 MG/5 ML UDC G TUBE SCH ×2 (08:55→21:19)
[2018-10-18] MEDS: Pantoprazole IV* 40 MG IV SCH (08:55)
[2018-10-18] MEDS: levETIRAcetam LIQ* 500 MG/5 ML UDC PO SCH ×2 (08:56→21:19)
[2018-10-18] MEDS: Chlorhexidine MOUTHWASH 0.12%* 15 ML UDC SWISH SPIT SCH ×3 (08:56→21:19)
[2018-10-18] MEDS: Valproic Acid LIQ(*) 250 MG/5 ML UDC PO SCH ×2 (09:02→21:19)
[2018-10-18] MEDS ORDERED: Potassium Chloride* LIQUID 20 MEQ/15 ML UDC PO ONE (09:57)
[2018-10-18] MEDS ORDERED: D5W 1000 ML BAG* 1,000 ML IV SCH (09:58)
[2018-10-18] MEDS ORDERED: Magnesium Sulfate 2 GM IV* 2 GM/50 ML BAG IVPB ONE ×2 (09:58→18:00)
[2018-10-18 10:04] LABS: ABS Lymphocytes 0.2 10^3/ul (1.0-4.8); ABS Monocytes 0.2 10^3/ul (0-0.8); ABS Neutrophils 1.8 10^3/ul (1.5-7.7); Eosinophil % 0.4 %; Lymphocyte % 7.2 %; Nucleated Red Blood Cells % 1.1
--- NOTE | 2018-10-18 10:04 | PN ---
Progress Note - Progress Note Date of Service: 10/18/18 Note: Progress Note -- Critical Care 24 hour events/significant events: -overnight remained on CPAP, PS 25 -tmax 100 -off pressors -follows commands; off sedation for 2-3 days now -did not tolerated CPAP trial on lower PS yesterday Tele: NSR Vitals: Vital Signs Temp 98.2 F 10/18/18 07:53 Pulse 83 10/18/18 09:00 Resp 25 10/18/18 05:58 BP 123/55 10/18/18 09:00 Pulse Ox 95 10/18/18 09:00 Intake & Output 10/17/18 10/18/18 10/18/18 18:59 06:59 18:59 Intake Total 1200 1170.1 Output Total 1455 1795 325 Balance -255 -624.9 -325 Weight 89.3 kg Intake: IV Fluids 473 373.1 ABX - CEFTRIAXONE 55 D5W 351 366 NS 67 7.1 Oral 0 Tube Feeding 297 397 Tube Feeding Flush Amount 430 400 Output: Peñaloza 1455 1620 325 Tube Feeding Residual 175 Amount Wasted Other: Date of Last Bowel 10/18/18 Movement # Bowel Movements 1 Estimated Stool Amount Large O2/Vent: CPAP 25/5 40%; TV 500-600, sats 95% Infusions: d5w 100cc/hr Medications: Acetaminophen (Tylenol Adult Liq*) 650 mg PO Q6H PRN PRN Reason: FEVER/PAIN Artificial Tears (Lacrilube Oint*) 1 applic BOTH EYES Q4H PRN PRN Reason: DRY EYE Last Admin: 10/14/18 16:55 Dose: 1 drop Atorvastatin Calcium (Lipitor*) 10 mg PO QPM [facility] Last Admin: 10/17/18 17:33 Dose: 10 mg Chlorhexidine Gluconate (Peridex Mouth Wash 0.12%*) 15 ml SWISH SPIT TID [facility] Last Admin: 10/18/18 08:56 Dose: 15 ml Digoxin (Lanoxin Tab*) 0.125 mg PO EVERY OTHER DAY [facility] Last Admin: 10/18/18 08:53 Dose: 0.125 mg Duloxetine HCl (Cymbalta Cap*) 30 mg PO DAILY [facility] Last Admin: 10/18/18 08:54 Dose: 30 mg Ferrous Sulfate (Feosol Liq*) 300 mg G TUBE BID [facility] Last Admin: 10/18/18 08:55 Dose: 300 mg Furosemide (Lasix Iv*) 60 mg IV 0800,1700 [facility] Last Admin: 10/18/18 08:46 Dose: 60 mg Propofol (Diprivan*) 100 mls @ 1.896 mls/hr IV .(Initial Rate) [facility]; Protocol Last Admin: 10/13/18 13:16 Dose: 3.6 mls/hr Ceftriaxone Sodium 1 gm/ (Sodium Chloride) 50 mls @ 100 mls/hr IVPB Q24H [facility] Stop: 10/20/18 23:59 Last Admin: 10/17/18 11:13 Dose: 100 mls/hr Dextrose (D5w 1000 Ml Bag*) 1,000 mls @ 100 mls/hr IV PER RATE [facility] Last Admin: 10/17/18 18:35 Dose: 100 mls/hr Magnesium Sulfate (Magnesium Sulfate 2 Gm Iv*) 2 gm in 50 mls @ 50 mls/hr IVPB ONCE ONE Stop: 10/18/18 10:57 Potassium Chloride (Potassium Chloride 20 Meq/100 Ml Ivpremix*) 20 meq in 100 mls @ 50 mls/hr IV Q2H [facility] Stop: 10/18/18 15:59 Magnesium Sulfate (Magnesium Sulfate 2 Gm Iv*) 2 gm in 50 mls @ 50 mls/hr IVPB ONCE ONE Stop: 10/18/18 18:59 Levetiracetam (Keppra Liq*) 500 mg PO BID [facility] Last Admin: 10/18/18 08:56 Dose: 500 mg Metoprolol Tartrate (Lopressor Tab*) 25 mg PO BID [facility] Last Admin: 10/18/18 08:54 Dose: 25 mg Morphine Sulfate (Morphine 4 Mg/Ml Vial (1 Ml)) 4 mg IV Q4H PRN PRN Reason: PAIN Last Admin: 10/18/18 05:53 Dose: 4 mg Ondansetron HCl (Zofran Inj*) 4 mg IV Q6H PRN PRN Reason: NAUSEA Last Admin: 10/10/18 08:20 Dose: 4 mg Pantoprazole Sodium (Protonix Iv*) 40 mg IV DAILY [facility] Last Admin: 10/18/18 08:55 Dose: 40 mg Potassium Chloride (Potassium Chloride Liquid) 40 meq PO ONCE ONE Stop: 10/18/18 09:58 Valproic Acid (Depakene Liq(*)) 750 mg PO BID [facility] Last Admin: 10/18/18 09:02 Dose: 750 mg Physical Exam: Constitutional: intubated, awakens, follows commands, distress/diaphoresis during CPAP Head: normocephalic, atraumatic Eyes: no pallor, no icterus ENT: moist mucous membranes Neck: soft, supple, no jvd CVS: normal rate, regular, no murmur Resp: bilateral air entry, bilateral rhonchi and scattered rhales+, no wheeze, no acc muscle use Abdomen/GI: soft, nontender, nondistended, BS+ Ext/Msk: warm, pulses+, Edema+ 3+ in LE and Upper Ext Skin: intact, warm Neuro: awake, alert, unable to assess orientation, moving ext spontaneously, moves some to command, able to life head on command; not moving left leg like yesterday Labs: Laboratory Results - last 24 hr 10/16/18 10/16/18 10/17/18 04:48 09:35 19:51 WBC RBC Hgb Hct MCV MCH MCHC RDW Plt Count MPV Hem Pathologist Commnt INR (Anticoag Therapy) HIT Functional 0.149 Sodium 143 Potassium 3.1 L Chloride 109 Carbon Dioxide 25 Anion Gap 9 BUN 109 H Creatinine 2.97 H Est GFR ( Amer) 26.2 Est GFR (Non-Af Amer) 21.6 BUN/Creatinine Ratio 36.7 H Glucose 144 H Calcium 7.8 L Phosphorus Magnesium Total Bilirubin Direct Bilirubin Indirect Bilirubin AST ALT Alkaline Phosphatase Lactate Dehydrogenase Total Protein Albumin Globulin Albumin/Globulin Ratio Heparin-PF4 Ab Interp Negative Heparin-PF4 Ab Comment See comment 10/18/18 10/18/18 10/18/18 05:15 05:15 05:15 WBC 2.2 L RBC 2.76 L Hgb 8.6 L Hct 25 L MCV 90 MCH 31 MCHC 35 RDW 15 Plt Count 14 L* MPV 9.6 Hem Pathologist Commnt INR (Anticoag Therapy) 1.60 H HIT Functional Sodium 142 Potassium 2.8 L Chloride 107 Carbon Dioxide 26 Anion Gap 9 BUN 104 H Creatinine 2.69 H Est GFR ( Amer) 29.3 Est GFR (Non-Af Amer) 24.2 BUN/Creatinine Ratio 38.7 H Glucose 127 H Calcium 7.9 L Phosphorus 2.3 L Magnesium 1.8 L Total Bilirubin 1.20 H Direct Bilirubin 0.70 H Indirect Bilirubin 0.5 AST 10 L ALT < 3 L Alkaline Phosphatase 46 Lactate Dehydrogenase 260 Total Protein 5.0 L Albumin 2.0 L Globulin 3.0 Albumin/Globulin Ratio 0.7 L Heparin-PF4 Ab Interp Heparin-PF4 Ab Comment Imaging: CXR 10/15 - bilateral infiltrates+ CXR 10/16 - ett above jamie; bilateral infiltrates; some imporvement on left lower lobe cxr 10/18 - ett above jamie; bilateral infitlrates R>L unchanged Assessment: 63y M w/pmhx of CAD, CHF, TIA, Seizures, renal stones, CKD, chronic anemia, Afib, LV diastolic dysfunction, h/o MV/TV repair; presented to ER via [facility] from [facility] 10[facility] for witnessed seizure in [place]. Was febrile 100.8, tachycardic, hypotensive. Patient reported before event of abdominal pain and diarrhea+. He was started on sepsis protocol, noted to have MAUREEN. CT abd demonstrated left hydronephrosis with obstructing stone. Pradaxa reversed. Taken to IR for perc nephrostomy tube placement 10/09 -Severe sepsis with shock -E.coli bacteremia -acute pyelonephritis secondary to e.coli -Left hydronephrosis 2/2 to ureteral stone and obstruction; s/p Left perc nephrostomy 10/09 -acute decompensated LV diastolic heart failure -acute hypoxic resp failure, intubated 10/09 -suspected multilobar aspiration pneumonia -MAUREEN -Metabolic acidosis -h/o seizure; on Keppra and Dilantin -pancytopenia; s/p IVIG x2 days; s/p prbc and plt transfusion -afib Plan: Neuro- -off sedation , follows commands; baseline Left sided weakness 2/2 to CVA; moves right side on command -no pain noted on exam -noted CT brain findings of encephalopmalacia, prior old? -Cont keppra 500mg BID; pending keppra level today -free valproic acid level 8 (normal) 10/15, cont 750mg bid -Delirium prec; avoid BDZ CVS- -BP stable; off pressors -Afib; rate controlled; on dig and metoprolol for rate control; dig 1.7 10/15 -AC has been off since for procedure, MAUREEN, and anemia -anemia; stable hg -overall overload+, edema in LE and upper ext -cont lasix 60mg iv bid to augment output; replete KCL IV and Mg IV -dec d5w to 75cc/hr -goal negative balance -Maintain MAP>65 Resp- -intubated; on 40% fio2; tolerating CPAP but PS 25, tachypneic on 20 -CXR 10/18 still unchanged bilateral infiltrates -mild secretions+; sputum culture yeast+ -cont to wean down PS ; discussion had yesterday about possibility of trach again if needed by end of next week, he is now day #8 intubation -IV abx for aspiration coverage with CTX -Wean Fio2 to keep sat>92% -Bronchodilators PRN, Aspiration prec, Pulmonary Toilet -VAP bundle ID- afebrile. wbc 2.2, leukopenic. -Blood cx E.coli + 10/10, urine cx 7 E.coli, nephrostomy cx e.coli+; all pansensitive -repeat blood cx 10/15 negative -sputum culture yeast +1; likely just colonized -Cont CTX (10/14) (day#5, so far day 9 of abx total); atleast 10-14 days for bacteremia GI- -on TF via OGT; nepro 40cc/hr -GI prophylaxis Renal- -MAUREEN; suspect septic ATN/shock; nonoliguric -Cr decreasing; makng urine with diuretic augmentation; goal neg balance -cont d5w but 75cc/hr for hypernatremia -Hypernatremia; dec d5w to 75cc/hr -clinically volume overloaded; making urine; on lasix 60mg iv bid -replete IV KCL and PO KCL and MgSulfate 2gm IV AM and PM -no acidosis -no indication for HD ; close monitoring -Left obstructive nephropathy from renal stone; left per neph minimal drainage noted -strict I/O, replete to keep K>4, Mg>2 -peñaloza as indicated Heme- -anemia; hg stable -no bleeding, suspect BM suppression? sepsis? drug effect from ceph vs valproic acid? though has always been on valproic acid -s/p steroids; s/p IVIG x2 10/14 and 10/15; since no change noted yet; no plan for BM biopsy currently -thrombocytopenia 16; no bleeding; givne plt before but no improvement; watch for bleeding, transfuse as needed Endo-Maintain BG<200, insulin protocol as needed Musculsk- pressure ulcer prophylaxis. Bedrest. Wounds- none Nutrition- nepro TF 40cc/hr DVT prophylaxis: SCD; no heparin due to anemia/thrombocytopenia GI prophylaxis: ppi Central Line: yes Arterial Line: yes Peñaloza Cathetor: yes Disposition: Patient requires Critical Care/ICU for septic shock, acute respiratory failure, suspected aspiration pneumonia, MAUREEN Patient clinical status: guarded, critical Code Status: full code Total Critical Care time is 40 minutes, excluding procedures/teaching Rao Morgan MD Inventory Transcriber (Electronically Signed)
[2018-10-18 10:05] LABS: Immature Retic Fraction 0.86; RBC Retic Count 2.77 10^6/uL (4.18-5.48)
[2018-10-18 10:20] LABS: Corrected Retic Count 1.1 % (0.5-1.5); Hematocrit for Retic CNT 25 % (42-52)
[2018-10-18] MEDS: D5W 1000 ML BAG* 1,000 ML IV SCH ×2 (10:34→20:26)
[2018-10-18] MEDS: KCL 20 MEQ/100 ML IVPREMIX* 20 MEQ/100 ML BAG IV SCH ×3 (10:39→15:28)
[2018-10-18] MEDS: cefTRIAXone(*) 1 GM in NS 0.9% 50 ML* 50 ML IVPB SCH (13:20)
[2018-10-18] MEDS: Acetaminophen ADULT LIQ* 650 MG/20.3 ML UDC PO PRN (13:27)
[2018-10-18] MEDS: Metoclopramide IV* 5 MG/ML 2 ML VIAL IV SLOW PU SCH (14:43)
[2018-10-18] MEDS: Atorvastatin* 10 MG TAB PO SCH (17:56)
[2018-10-19] MEDS: Morphine 4 MG/ML VIAL (1 ml) 4 MG/ML VIAL IV PRN ×3 (00:48→16:10)
[2018-10-19] MEDS: Metoclopramide IV* 5 MG/ML 2 ML VIAL IV SLOW PU SCH ×2 (02:06→13:05)
[2018-10-19 05:39] LABS: Hematocrit 25 % (42-52); Hemoglobin 8.6 g/dL (14.0-18.0); Mean Corpuscular HGB Conc 35 g/dL (31-36); Mean Corpuscular Hemoglobin 31 pg (27-31); Mean Corpuscular Volume 90 fL (80-94); Mean Platelet Volume 10.1 fL (7.4-10.4); Platelet Count 15 10^3/uL (150-450); Red Blood Count 2.73 10^6 /uL (4.18-5.48); Red Cell Distribution Width 15 % (10-15); White Blood Count 3.7 10^3/uL (3.5-10.8)
[2018-10-19 06:04] LABS: BUN/Creatinine Ratio 41.4 (8-20); Calcium 7.6 mg/dL (8.6-10.3); EGFR African American 35.7 (>60); EGFR Non-African American 29.5 (>60); Magnesium 2.4 mg/dL (1.9-2.7); Phosphorus 2.6 mg/dL (2.5-5.0)
[2018-10-19] MEDS: KCL 20 MEQ/100 ML IVPREMIX* 20 MEQ/100 ML BAG IV SCH ×2 (07:32→11:15)
[2018-10-19] MEDS: Furosemide IV* 10 MG/ML VIAL (40 MG) IV SCH ×2 (07:36→16:10)
[2018-10-19] MEDS: Ferrous Sulfate LIQ* 300 MG/5 ML UDC G TUBE SCH ×2 (07:40→21:21)
[2018-10-19] MEDS: levETIRAcetam LIQ* 500 MG/5 ML UDC PO SCH ×2 (07:40→21:21)
[2018-10-19] MEDS: Pantoprazole IV* 40 MG IV SCH (07:40)
[2018-10-19] MEDS: Valproic Acid LIQ(*) 250 MG/5 ML UDC PO SCH ×2 (07:40→21:23)
[2018-10-19] MEDS: DULoxetine DR CAP* 30 MG CAP.DR PO SCH (07:41)
[2018-10-19] MEDS: Chlorhexidine MOUTHWASH 0.12%* 15 ML UDC SWISH SPIT SCH ×3 (07:41→21:21)
[2018-10-19] MEDS: Metoprolol Tartrate TAB* 25 MG PO SCH ×2 (07:42→21:22)
[2018-10-19] MEDS ORDERED: Potassium Chloride* LIQUID 20 MEQ/15 ML UDC PO ONE (08:00)
[2018-10-19] MEDS: cefTRIAXone(*) 1 GM in NS 0.9% 50 ML* 50 ML IVPB SCH (11:15)
--- NOTE | 2018-10-19 11:31 | PN ---
Progress Note - Progress Note Date of Service: 10/19/18 SOAP: Subjective: [No significant events. Remains afebrile. Failed attempts to wean from vent. No obvious bleeding] Objective: [ Vital Signs: Temp Pulse Resp BP Pulse Ox 98.8 F 83 23 103/49 93 10/19/18 07:36 10/19/18 11:00 10/19/18 11:00 10/19/18 11:00 10/19/18 11:00 Laboratory Results - last 24 hr 10/19/18 10/19/18 05:15 05:15 WBC 3.7 RBC 2.73 L Hgb 8.6 L Hct 25 L MCV 90 MCH 31 MCHC 35 RDW 15 Plt Count 15 L* MPV 10.1 Sodium 141 Potassium 3.0 L Chloride 107 Carbon Dioxide 26 Anion Gap 8 BUN 94 H Creatinine 2.27 H Est GFR ( Amer) 35.7 Est GFR (Non-Af Amer) 29.5 BUN/Creatinine Ratio 41.4 H Glucose 120 H Calcium 7.6 L Phosphorus 2.6 Magnesium 2.4 Acetaminophen (Tylenol Adult Liq*) 650 mg PO Q6H PRN PRN Reason: FEVER/PAIN Last Admin: 10/18/18 13:27 Dose: 650 mg Artificial Tears (Lacrilube Oint*) 1 applic BOTH EYES Q4H PRN PRN Reason: DRY EYE Last Admin: 10/14/18 16:55 Dose: 1 drop Atorvastatin Calcium (Lipitor*) 10 mg PO QPM [facility] Last Admin: 10/18/18 17:56 Dose: 10 mg Chlorhexidine Gluconate (Peridex Mouth Wash 0.12%*) 15 ml SWISH SPIT TID [facility] Last Admin: 10/19/18 07:41 Dose: 15 ml Digoxin (Lanoxin Tab*) 0.125 mg PO EVERY OTHER DAY [facility] Last Admin: 10/18/18 08:53 Dose: 0.125 mg Duloxetine HCl (Cymbalta Cap*) 30 mg PO DAILY [facility] Last Admin: 10/19/18 07:41 Dose: 30 mg Ferrous Sulfate (Feosol Liq*) 300 mg G TUBE BID [facility] Last Admin: 10/19/18 07:40 Dose: 300 mg Furosemide (Lasix Iv*) 60 mg IV 0800,1700 [facility] Last Admin: 10/19/18 07:36 Dose: 60 mg Propofol (Diprivan*) 100 mls @ 1.896 mls/hr IV .(Initial Rate) [facility]; Protocol Last Admin: 10/13/18 13:16 Dose: 3.6 mls/hr Ceftriaxone Sodium 1 gm/ (Sodium Chloride) 50 mls @ 100 mls/hr IVPB Q24H [facility] Stop: 10/20/18 23:59 Last Admin: 10/19/18 11:15 Dose: 100 mls/hr Dextrose (D5w 1000 Ml Bag*) 1,000 mls @ 50 mls/hr IV PER RATE [facility] Last Admin: 10/18/18 20:26 Dose: 50 mls/hr Potassium Chloride (Potassium Chloride 20 Meq/100 Ml Ivpremix*) 20 meq in 100 mls @ 50 mls/hr IV Q2H [facility] Stop: 10/19/18 11:59 Last Admin: 10/19/18 11:15 Dose: 50 mls/hr Levetiracetam (Keppra Liq*) 500 mg PO BID [facility] Last Admin: 10/19/18 07:40 Dose: 500 mg Metoclopramide HCl (Reglan Iv*) 5 mg IV SLOW PU Q12H [facility] Last Admin: 10/19/18 02:06 Dose: 5 mg Metoprolol Tartrate (Lopressor Tab*) 25 mg PO BID [facility] Last Admin: 10/19/18 07:42 Dose: Not Given Morphine Sulfate (Morphine 4 Mg/Ml Vial (1 Ml)) 4 mg IV Q4H PRN PRN Reason: PAIN Last Admin: 10/19/18 08:27 Dose: 4 mg Ondansetron HCl (Zofran Inj*) 4 mg IV Q6H PRN PRN Reason: NAUSEA Last Admin: 10/10/18 08:20 Dose: 4 mg Pantoprazole Sodium (Protonix Iv*) 40 mg IV DAILY [facility] Last Admin: 10/19/18 07:40 Dose: 40 mg Valproic Acid (Depakene Liq(*)) 750 mg PO BID [facility] Last Admin: 10/19/18 07:40 Dose: 750 mg Exam: Gen: Intubated, eyes open to voice and follows some commands HEENT: ET tube in place CV: RRR Resp: limited exam, no adventitious lung sounds Abd: soft, slightly hyperactive BS Ext: gross anasarca] Skin: small area of ecchymosis over R posterior neck, no other oozing or petechiae Assessment: [63 yo male with a complicated PMH including prior valve replacements, seizure d /o and possible ITP who presented with fever and seizure with evidence of L hydronephrosis. Blood cultures positive for EColi c/w a urinary source. Now s/ p L nephrostomy tube placement who subsequently developed respiratory failure and now intubated. He was thrombocytopenic at admission with progressive cytopenias for which hematology was consulted. Presentation appeared c/w ITP as he did not respond to platelet transfusion and no other abnormalities appreciated on peripheral smear. He had been on several days of high dose steroids without improvement and subsequently received IVIG 2g/kg over 2d (10/14 and 10/15). Platelets have not responded and he subsequently developed progressive anemia and leukopenia which now appear to be recovering. Plan: [1. Pancytopenia - leukopenia is spontaneously improving and Hgb has been stable for several days now - ddx still includes sepsis, drug effect or primary bone marrow process - favoring marrow suppression secondary to sepsis perhaps with associated ITP now slowly recovering - no evidence of bleeding or oozing on exam with stable Hgb - PF4 ab and functional assay negative for HIT - SPEP and [id number] pending - recommend platelet transfusion for count <10K or bleeding 2. Respiratory failure - remains intubated 3. E.Coli septicemia of urinary source s/p nephrostomy tube placement - finish ceftriaxone tomorrow 4. Seizure d/o 5. ARF with anasarca Hematology service will continue to follow along]
[2018-10-19] MEDS ORDERED: KCL 20 MEQ/100 ML IVPREMIX* 20 MEQ/100 ML BAG IV ONE (12:23)
[2018-10-19] MEDS: Potassium Chloride* LIQUID 20 MEQ/15 ML UDC PO SCH (12:24)
--- NOTE | 2018-10-19 12:29 | PN ---
Progress Note - Progress Note Date of Service: 10/19/18 Note: Progress Note -- Critical Care 24 hour events/significant events: -on CPAP 23/08 yesterday, could not tolerate less PS support, then more tachypneic, switched to AC mode -back on CPAP 18/08 now -afebrile, BP 90-100s; making good urine -awake, off sedation, follows commands -updated sister yesterday Tele: NSR Vitals: Vital Signs Temp 98.3 F 10/19/18 11:48 Pulse 83 10/19/18 11:00 Resp 23 10/19/18 11:00 BP 103/49 10/19/18 11:00 Pulse Ox 93 10/19/18 11:00 Intake & Output 10/18/18 10/19/18 10/19/18 18:59 06:59 18:59 Intake Total 1924 1490 Output Total 2530 1095 635 Balance -606 395 -635 Weight 86.5 kg Intake: IV Fluids 197 896 D5W 758 NS 51 138 Potassium Chloride 146 IVPB 878 223 ABX - CEFTRIAXONE 60 D5W 646 Mag 60 60 Potassium Chloride 112 163 Tube Feeding 399 311 Tube Feeding Flush Amount 450 60 Output: Peñaloza 1970 1020 635 Nephrostomy #1 20 Tube Feeding Residual 540 75 Amount Wasted Other: Date of Last Bowel 10/18/18 10/19/18 Movement # Bowel Movements 1 1 Estimated Stool Amount Medium Large O2/Vent: CPAP / 40% Infusions: d5w 50cc/hr Medications: Acetaminophen (Tylenol Adult Liq*) 650 mg PO Q6H PRN PRN Reason: FEVER/PAIN Last Admin: 10/18/18 13:27 Dose: 650 mg Artificial Tears (Lacrilube Oint*) 1 applic BOTH EYES Q4H PRN PRN Reason: DRY EYE Last Admin: 10/14/18 16:55 Dose: 1 drop Atorvastatin Calcium (Lipitor*) 10 mg PO QPM [facility] Last Admin: 10/18/18 17:56 Dose: 10 mg Chlorhexidine Gluconate (Peridex Mouth Wash 0.12%*) 15 ml SWISH SPIT TID [facility] Last Admin: 10/19/18 07:41 Dose: 15 ml Digoxin (Lanoxin Tab*) 0.125 mg PO EVERY OTHER DAY [facility] Last Admin: 10/18/18 08:53 Dose: 0.125 mg Duloxetine HCl (Cymbalta Cap*) 30 mg PO DAILY [facility] Last Admin: 10/19/18 07:41 Dose: 30 mg Ferrous Sulfate (Feosol Liq*) 300 mg G TUBE BID [facility] Last Admin: 10/19/18 07:40 Dose: 300 mg Furosemide (Lasix Iv*) 60 mg IV 0800,1700 [facility] Last Admin: 10/19/18 07:36 Dose: 60 mg Propofol (Diprivan*) 100 mls @ 1.896 mls/hr IV .(Initial Rate) [facility]; Protocol Last Admin: 10/13/18 13:16 Dose: 3.6 mls/hr Ceftriaxone Sodium 1 gm/ (Sodium Chloride) 50 mls @ 100 mls/hr IVPB Q24H [facility] Stop: 10/20/18 23:59 Last Admin: 10/19/18 11:15 Dose: 100 mls/hr Potassium Chloride (Potassium Chloride 20 Meq/100 Ml Ivpremix*) 20 meq in 100 mls @ 50 mls/hr IV Q2H [facility] Stop: 10/19/18 18:59 Levetiracetam (Keppra Liq*) 500 mg PO BID [facility] Last Admin: 10/19/18 07:40 Dose: 500 mg Metoclopramide HCl (Reglan Iv*) 5 mg IV SLOW PU Q12H [facility] Last Admin: 10/19/18 02:06 Dose: 5 mg Metoprolol Tartrate (Lopressor Tab*) 25 mg PO BID [facility] Last Admin: 10/19/18 07:42 Dose: Not Given Morphine Sulfate (Morphine 4 Mg/Ml Vial (1 Ml)) 4 mg IV Q4H PRN PRN Reason: PAIN Last Admin: 10/19/18 08:27 Dose: 4 mg Ondansetron HCl (Zofran Inj*) 4 mg IV Q6H PRN PRN Reason: NAUSEA Last Admin: 10/10/18 08:20 Dose: 4 mg Pantoprazole Sodium (Protonix Iv*) 40 mg IV DAILY [facility] Last Admin: 10/19/18 07:40 Dose: 40 mg Potassium Chloride (Potassium Chloride Liquid) 40 meq PO DAILY [facility] Stop: 10/21/18 09:01 Valproic Acid (Depakene Liq(*)) 750 mg PO BID [facility] Last Admin: 10/19/18 07:40 Dose: 750 mg Physical Exam: Constitutional: intubated, awakens, follows commands Head: normocephalic, atraumatic Eyes: no pallor, no icterus ENT: moist mucous membranes Neck: soft, supple, no jvd CVS: normal rate, regular, no murmur Resp: bilateral air entry, bilateral rhonchi and scattered rhales+, no wheeze, no acc muscle use Abdomen/GI: soft, nontender, nondistended, BS+ Ext/Msk: warm, pulses+, Edema+ 3+ in LE and Upper Ext Skin: intact, warm Neuro: awake, alert, unable to assess orientation, moving ext spontaneously, moves some to command, able to life head on command; not moving left leg Labs: Laboratory Results - last 24 hr 10/19/18 10/19/18 05:15 05:15 WBC 3.7 RBC 2.73 L Hgb 8.6 L Hct 25 L MCV 90 MCH 31 MCHC 35 RDW 15 Plt Count 15 L* MPV 10.1 Sodium 141 Potassium 3.0 L Chloride 107 Carbon Dioxide 26 Anion Gap 8 BUN 94 H Creatinine 2.27 H Est GFR ( Amer) 35.7 Est GFR (Non-Af Amer) 29.5 BUN/Creatinine Ratio 41.4 H Glucose 120 H Calcium 7.6 L Phosphorus 2.6 Magnesium 2.4 Imaging: CXR 10/15 - bilateral infiltrates+ CXR 10/16 - ett above jamie; bilateral infiltrates; some imporvement on left lower lobe cxr 10/18 - ett above jamie; bilateral infitlrates R>L unchanged Assessment: 63y M w/pmhx of CAD, CHF, TIA, Seizures, renal stones, CKD, chronic anemia, Afib, LV diastolic dysfunction, h/o MV/TV repair; presented [place] ER via [place] [facility] [place] [facility] for witnessed seizure in [place]. Was febrile 100.8, tachycardic, hypotensive. Patient reported before event of abdominal pain and diarrhea+. He was started on sepsis protocol, noted to have MAUREEN. CT abd demonstrated left hydronephrosis with obstructing stone. Pradaxa reversed. Taken to IR for perc nephrostomy tube placement 10/09 -Severe sepsis with shock -E.coli bacteremia -acute pyelonephritis secondary to e.coli -Left hydronephrosis 2/2 to ureteral stone and obstruction; s/p Left perc nephrostomy 10/09 -acute decompensated LV diastolic heart failure -acute hypoxic resp failure, intubated 10/09 -suspected multilobar aspiration pneumonia -MAUREEN -Metabolic acidosis -Volume overload -h/o seizure; on Keppra and Dilantin -pancytopenia; s/p IVIG x2 days; s/p prbc and plt transfusion -afib Plan: Neuro- -off sedation , follows commands; baseline Left sided weakness 2/2 to CVA; moves right side on command -no pain noted on exam -noted CT brain findings of encephalopmalacia, prior old? -Cont keppra 500mg BID; pending keppra level -free valproic acid level 8 (normal) 10/15, cont 750mg bid -Delirium prec; avoid BDZ CVS- -BP stable; off pressors -Afib; rate controlled; on dig and metoprolol for rate control; dig 1.7 10/15 -AC has been off since for procedure, MAUREEN, and anemia -anemia; stable hg 8-9 -overall overload+, edema in LE and upper ext -cont lasix 60mg iv bid to augment output; replete KCL IV; good urine output with neg balance -d/c d5w -Maintain MAP>65 Resp- -intubated; on 40% fio2; tolerating CPAP but PS 20 now; cont to wean PS -if no improvement next 48 hours re-discussion with sister for possible trach -CXR 10/18 still unchanged bilateral infiltrates -CXr tomorrow -mild secretions+; sputum culture yeast+ -IV abx for aspiration coverage with CTX -Wean Fio2 to keep sat>92% -Bronchodilators PRN, Aspiration prec, Pulmonary Toilet -VAP bundle ID- afebrile. wbc 2.2-3.7, leukopenic but slight rise now -Blood cx E.coli + 10/10, urine cx 10/09 E.coli, nephrostomy cx e.coli+; all pansensitive -repeat blood cx 10/15 negative -sputum culture yeast +1; likely just colonized -Cont CTX (10/14) (day#6, so far day 10 of abx total); atleast 10-14 days for bacteremia GI- -on TF via OGT; nepro 40cc/hr -reglan 5mg Iv q12h; improving residuals now -GI prophylaxis Renal- -MAUREEN; suspect septic ATN/shock; nonoliguric; great urine output -Cr decreasing; makng urine with diuretic augmentation; goal neg balance -hypernatremia better; d/c d5w, re-eval; may consider free enteral water if needed -anasarca+; cont lasix 60mg IV bid -replete IV KCL and PO Kcl -no acidosis -no indication for HD ; close monitoring -Left obstructive nephropathy from renal stone; left per neph minimal drainage noted -strict I/O, replete to keep K>4, Mg>2 -peñaloza as indicated Heme- -anemia; hg stable 8-9 -no bleeding, suspect BM suppression? sepsis? drug effect from ceph vs valproic acid? though has always been on valproic acid -s/p steroids; s/p IVIG x2 10/14 and 10/15; not much change; no plan for BM at this time, observing -thrombocytopenia 16; no bleeding; givne plt before but no improvement; watch for bleeding, transfuse as needed Endo-Maintain BG<200, insulin protocol as needed Musculsk- pressure ulcer prophylaxis. Bedrest. Wounds- none Nutrition- nepro TF 40cc/hr DVT prophylaxis: SCD; no heparin due to anemia/thrombocytopenia GI prophylaxis: ppi Central Line: yes Arterial Line: yes Peñaloza Cathetor: yes Disposition: Patient requires Critical Care/ICU for septic shock, acute respiratory failure, suspected aspiration pneumonia, MAUREEN Patient clinical status: guarded, critical Code Status: full code Total Critical Care time is 40 minutes, excluding procedures/teaching Rao Morgan MD Doughnut Icer (Electronically Signed)
[2018-10-19] MEDS ORDERED: KCL 20 MEQ/100 ML IVPREMIX* 20 MEQ/100 ML BAG IV SCH (13:00)
[2018-10-19] MEDS: Atorvastatin* 10 MG TAB PO SCH (18:09)
[2018-10-20] MEDS: Metoclopramide IV* 5 MG/ML 2 ML VIAL IV SLOW PU SCH ×2 (01:13→14:04)
[2018-10-20 03:38] LABS: Hematocrit 25 % (42-52); Hemoglobin 8.3 g/dL (14.0-18.0); Mean Corpuscular HGB Conc 34 g/dL (31-36); Mean Corpuscular Hemoglobin 31 pg (27-31); Mean Corpuscular Volume 91 fL (80-94); Mean Platelet Volume 11.9 fL (7.4-10.4); Platelet Count 31 10^3/uL (150-450); Red Blood Count 2.71 10^6 /uL (4.18-5.48); Red Cell Distribution Width 16 % (10-15); White Blood Count 5.2 10^3/uL (3.5-10.8)
[2018-10-20 03:54] LABS: BUN/Creatinine Ratio 41.7 (8-20); Calcium 7.6 mg/dL (8.6-10.3); EGFR African American 37.4 (>60); EGFR Non-African American 30.9 (>60); Phosphorus 2.5 mg/dL (2.5-5.0); Potassium 3.6 mmol/L (3.5-5.0)
[2018-10-20] MEDS: Morphine 4 MG/ML VIAL (1 ml) 4 MG/ML VIAL IV PRN ×2 (07:10→20:21)
[2018-10-20] MEDS: Furosemide IV* 10 MG/ML VIAL (40 MG) IV SCH ×2 (11:01→17:17)
[2018-10-20] MEDS: Ferrous Sulfate LIQ* 300 MG/5 ML UDC G TUBE SCH ×2 (11:02→20:20)
[2018-10-20] MEDS: Digoxin TAB* 0.125 MG PO SCH (11:02)
[2018-10-20] MEDS: Chlorhexidine MOUTHWASH 0.12%* 15 ML UDC SWISH SPIT SCH ×3 (11:02→20:20)
[2018-10-20] MEDS: DULoxetine DR CAP* 30 MG CAP.DR PO SCH (11:02)
[2018-10-20] MEDS: Valproic Acid LIQ(*) 250 MG/5 ML UDC PO SCH ×2 (11:02→20:20)
[2018-10-20] MEDS: Metoprolol Tartrate TAB* 25 MG PO SCH ×3 (11:03→22:05)
[2018-10-20] MEDS: levETIRAcetam LIQ* 500 MG/5 ML UDC PO SCH ×2 (11:03→20:20)
[2018-10-20] MEDS: Potassium Chloride* LIQUID 20 MEQ/15 ML UDC PO SCH (11:06)
[2018-10-20] MEDS: Pantoprazole IV* 40 MG IV SCH (11:39)
[2018-10-20] MEDS: cefTRIAXone(*) 1 GM in NS 0.9% 50 ML* 50 ML IVPB SCH (11:41)
[2018-10-20 15:23] LABS: Levetiracetam 40.2 mcg/mL
--- NOTE | 2018-10-20 16:55 | PN ---
Date of Service: 10/20/18 Critical Care Services: Continues to be ventilator-dependent. Has been very bradykinetic. Vital Signs: Temp Pulse Resp BP SpO2 FiO2 98.4 F 99 21 113/61 93 30 Physical Exam: Gen: somnolent but arousable and oriented when aroused. HEENT:Orotrach tibe in place. Lungs:Crackles both sides (posteriorly) Abdomen: Not distended Extremities:No cyanosis or edema. Neuro: Unable to lift any limb against gravity Fluid Balance (Past 24 Hours): 10/18/18 10/19/18 10/20/18 06:59 06:59 06:59 Intake Total 2370.1 3414 1354 Output Total 3250 3625 2270 Balance -879.9 -211 -916 Weight 196 lb 190 lb 184 lb Intake: IV Fluids 846.1 1093 914 ABX - CEFTRIAXONE 55 D5W 717 758 677 NS 74.1 189 237 Potassium Chloride 146 IVPB 1101 ABX - CEFTRIAXONE 60 D5W 646 Mag 120 Potassium Chloride 275 Oral 0 0 Tube Feeding 694 710 440 Tube Feeding Flush Amount 830 510 Output: Kelly 3075 2990 2270 Nephrostomy #1 20 Tube Feeding Residual 175 615 Amount Wasted Other: Date of Last Bowel 10/18/18 10/20/18 Movement # Bowel Movements 1 1 Estimated Stool Amount Medium Large Labs: 10/18/18 10/20/18 10/20/18 05:15 03:25 03:25 WBC 5.2 RBC 2.71 L Hgb 8.3 L Hct 25 L MCV 91 MCH 31 MCHC 34 RDW 16 H Plt Count 31 MPV 11.9 H Sodium 142 Potassium 3.6 Chloride 108 Carbon Dioxide 25 Anion Gap 9 BUN 91 Creatinine 2.18 Glucose 125 H Calcium 7.6 L Phosphorus 2.5 Magnesium 2.0 Levetiracetam 40.2 Studies: CXRs have shows diffuse infiltrates in both lungs since admission. Nutrition: Tube feedings Impression: Ventilator depende due to 1. Chronic infiltrative lung disease - may represent gastric acid aspiration with secondary ARDS. 2. Patient may have "critical illness polyneuropahy/myopathy" based on profounf limb weakness. Plan: 1. Nerve conductions and EMGs 2. Continue daily wean attempt 3. Steroids to prevent fibrinoprolifgerative response to ARDS 4. Spoke to family about tracheostomy - - will probably move to this if unable to wean this week. Critical Care Time: 40 minutes
[2018-10-20] MEDS: Atorvastatin* 10 MG TAB PO SCH (17:17)
[2018-10-21] MEDS: Metoclopramide IV* 5 MG/ML 2 ML VIAL IV SLOW PU SCH ×2 (01:48→15:11)
[2018-10-21 05:36] LABS: BUN/Creatinine Ratio 41.3 (8-20); EGFR African American 35.2 (>60); EGFR Non-African American 29.1 (>60); Magnesium 1.9 mg/dL (1.9-2.7); Phosphorus 2.3 mg/dL (2.5-5.0); Potassium 3.9 mmol/L (3.5-5.0)
[2018-10-21 05:42] LABS: Hematocrit 24 % (42-52); Hemoglobin 8.1 g/dL (14.0-18.0); Mean Corpuscular HGB Conc 34 g/dL (31-36); Mean Corpuscular Hemoglobin 31 pg (27-31); Mean Corpuscular Volume 91 fL (80-94); Platelet Count 77 10^3/uL (150-450); Red Cell Distribution Width 15 % (10-15); White Blood Count 7.5 10^3/uL (3.5-10.8)
[2018-10-21] MEDS: Morphine 4 MG/ML VIAL (1 ml) 4 MG/ML VIAL IV PRN ×2 (06:04→17:57)
[2018-10-21] MEDS: Furosemide IV* 10 MG/ML VIAL (40 MG) IV SCH (07:52)
[2018-10-21] MEDS: Ferrous Sulfate LIQ* 300 MG/5 ML UDC G TUBE SCH (10:00)
[2018-10-21] MEDS: Pantoprazole IV* 40 MG IV SCH (10:00)
[2018-10-21] MEDS: Metoprolol Tartrate TAB* 25 MG PO SCH (10:01)
[2018-10-21] MEDS: Potassium Chloride* LIQUID 20 MEQ/15 ML UDC PO SCH (10:01)
[2018-10-21] MEDS: Chlorhexidine MOUTHWASH 0.12%* 15 ML UDC SWISH SPIT SCH ×3 (10:01→20:02)
[2018-10-21] MEDS: Valproic Acid LIQ(*) 250 MG/5 ML UDC PO SCH ×2 (10:01→20:02)
[2018-10-21] MEDS: DULoxetine DR CAP* 30 MG CAP.DR PO SCH ×2 (10:01→10:43)
[2018-10-21] MEDS: levETIRAcetam LIQ* 500 MG/5 ML UDC PO SCH ×2 (10:01→20:02)
[2018-10-21] MEDS: Norepinephrine 16MCG/ML IVPRE* 4,000 MCG/250 ML BAG IV SCH ×2 (15:09→22:54)
--- NOTE | 2018-10-21 15:23 | CONSULT ---
Subjective Date of Service: 10/21/18 Interval History: Mr. Erazo is a 63 yo male with PMH significant for congenital valvular disease , CVA, A fib, ITP, CAD, HLD, renal insufficiency, CHF, chronic anemia, and seizures; who presented to the the emergency room with concern for seizures. He was found to have hydronephrosis with an obstructing renal calculi. He had a nephrostomy tube placed during his stay. He was found to have E coli bacteremia secondary to pyelonephritis and left hydronephrosis, acute decompensated diastolic HF, acute hypoxic respiratory failure, and suspected aspiration pneumonia. During his stay in ICU he has developed significant diarrhea and was found to have skin breakdown on his buttocks. Patient seen and examined at bedside. Family History: Unchanged from Admission Social History: Unchanged from Admission Past Medical History: Unchanged from Admission Review of Systems - Measurements Intake and Output: Intake and Output Last 24 Hours 10/19/18 10/20/18 10/21/18 10/22/18 06:59 06:59 06:59 06:59 Intake Total 3414 1354 2328 0 Output Total 3625 2270 1511 156 Balance -211 -916 817 -156 Weight 190 lb 11.198 oz 184 lb 8 oz 185 lb 10.067 oz Intake: IV Fluids 1093 914 94 D5W 758 677 54 NS 189 237 40 Potassium Chloride 146 IVPB 1101 60 ABX - CEFTRIAXONE 60 60 D5W 646 Mag 120 Potassium Chloride 275 Oral 0 0 Tube Feeding 879 587 4050 Tube Feeding Flush Amount 510 455 Output: Kelly 2990 2270 1111 156 Nephrostomy #1 20 400 Tube Feeding Residual 615 Amount Wasted Other: Date of Last Bowel 10/18/18 10/20/18 10/20/18 Movement # Bowel Movements 1 1 1 Estimated Stool Amount Medium Large Large - Review of Systems General Comments: Unable to perform ROS, Patient is sedated and intubated Objective Active Medications: Acetaminophen (Tylenol Adult Liq*) 650 mg PO Q6H PRN Reason: FEVER/PAIN Artificial Tears (Lacrilube Oint*) 1 applic BOTH EYES Q4H PRN Reason: DRY EYE Atorvastatin Calcium (Lipitor*) 10 mg PO QPM MELA Chlorhexidine Gluconate (Peridex Mouth Wash 0.12%*) 15 ml SWISH SPIT TID MELA Digoxin (Lanoxin Tab*) 0.125 mg PO EVERY OTHER DAY [facility] Duloxetine HCl (Cymbalta Cap*) 30 mg PO DAILY [facility] Ferrous Sulfate (Feosol Liq*) 300 mg G TUBE BID [facility] Furosemide (Lasix Iv*) 60 mg IV 0800,1700 [facility] Norepinephrine Bitartrate (Levophed 16 Mcg/Ml Premix*) 4,000 mcg in 250 mls @ 18.75 mls/hr IV .PER PROTOCOL MELA; Protocol Cefepime HCl (Maxipime 1 Gm In Dextrose Duplex (*)) 1 gm in 50 mls @ 100 mls/ hr IV DAILY@1500 [facility] Levetiracetam (Keppra Liq*) 500 mg PO BID [facility] Metoclopramide HCl (Reglan Iv*) 5 mg IV SLOW PU Q12H [facility] Metoprolol Tartrate (Lopressor Tab*) 25 mg PO BID [facility] Morphine Sulfate (Morphine 4 Mg/Ml Vial (1 Ml)) 4 mg IV Q4H PRN Reason: PAIN Ondansetron HCl (Zofran Inj*) 4 mg IV Q6H PRN Reason: NAUSEA Pantoprazole Sodium (Protonix Iv*) 40 mg IV DAILY [facility] Valproic Acid (Depakene Liq(*)) 750 mg PO BID [facility] Vital Signs 10/21/18 10/21/18 10/21/18 09:00 10:00 11:00 Temperature Pulse Rate 105 111 109 Respiratory 20 20 20 Rate Blood Pressure 96/53 93/49 115/59 (mmHg) O2 Sat by Pulse 93 93 92 Oximetry 10/21/18 12:04 Temperature 101 F Pulse Rate Respiratory Rate Blood Pressure (mmHg) O2 Sat by Pulse Oximetry Oxygen Devices in Use Now: Mechanical Ventilator Appearance: NAD, laying in bed Ears/Nose/Mouth/Throat: Mucous Membranes Moist Respiratory: Symmetrical Chest Expansion and Respiratory Effort Skin: - - See skin note below Neurological: - - Sedated and unable to determine orientation Lines/Tubes/Other Access: Clean, Dry and Intact Endotracheal Tube Result Diagrams: 10/23/18 03:25 10/23/18 03:25 Additional Lab and Data: Above labs were pulled into the note, when edited prior to signing. See labs from day of consult below. Laboratory Tests 10/18/18 10/21/18 10/21/18 05:15 05:00 05:00 WBC 7.5 Hgb 8.1 L Hct 24 L Plt Count 77 L D Sodium 144 Potassium 3.9 Chloride 110 Carbon Dioxide 24 BUN 95 H Creatinine 2.30 H Glucose 125 H Total Protein 5.0 L Albumin 2.0 L Skin Deviation Note - Skin Deviation Findings Buttocks - Excoriated skin and superficial open areas. The surrounding skin is intact. Not pictured - The posterior scrotum with superficial open skin Right arm - Abrasions, area measures 2.5 cm x 2 cm x 0.1 cm. There is no drainage and the surrounding skin is intact. Left lateral thigh -Wound, measures 0.8 cm x 1 cm x 0.1 cm. The wound base is scabbed, there is no drainage. The surrounding skin is intact. left lateral side - Abrasion, measures 1.8 cm x 1.2 cm x 0.1 cm. The wound base is pink granulation tissue. The surrounding skin is intact. Not pictured is ecchymosis vs possible deep tissue injury to the left arm near the AC fossa. Deep purple discoloration, nonblanchable. The skin is intact, no drainage noted. Assessment/Plan: Mr. Erazo is a 63 yo male with PMH significant for congenital valvular disease , CVA, A fib, ITP, CAD, HLD, renal insufficiency, CHF, chronic anemia, and seizures; who presented to the the emergency room with concern for seizures. He was found to have hydronephrosis with an obstructing renal calculi. With a complicated hospital course. He was found to have skin breakdown during his stay. 1. Excoriated buttocks and scrotum. There are superficial open areas to the buttocks and posterior scrotum. Suspect the area to the buttocks and scrotum are secondary to diarrhea and shearing injury. Recommend applying barrier cream with zinc to the buttocks and posterior scrotum. Frequent turning and repositioning. Use a lifting device to help decrease shearing injury. Consider checking a prealbumin level to evaluate nutritional status. Once platelet count allows consider flexiseal for diarrhea management. 2. Wound to left lateral side. Suspect this is secondary to a shearing injury. Recommend applying a barrier cream to the area. Use lifting devices to move patient in bed to prevent further shearing injuries. 3. Wound to left thigh. Suspect this is a medical transcription radiology related pressure injury , suspect secondary to the nephrostomy tubing. Use caution to make sure that medical devices are not underneath the patient to cause pressure breakdown. 4. Ecchymosis. Area to left UE, this is secondary to HARJINDER stocking being placed on the arm for edema control. May evolve into a deep tissue injury. 5. Diet. Tube feeding 6. Code Status. Full Code Status 7. Disposition. Inpatient, disposition per primary medicine team. TIME SPENT: Time for this wound consultation was 30 minutes and 20 minutes was spent with the patient providing incontinence care; assessing, measuring, and photographing his wounds; turning and repositioning the patient. Wound Problem/Plan Is Patient a Wound Clinic Patient: No Attending: Brea Cuello
[2018-10-21] MEDS: Cefepime 1 GM in Dextrose(*) 1 GM/50 ML BAG IV SCH (17:00)
[2018-10-21] MEDS: Atorvastatin* 10 MG TAB PO SCH (17:58)
--- NOTE | 2018-10-21 18:07 | PN ---
Date of Service: 10/21/18 Critical Care Services: new problem - fever (no leukocytosis) and hypotension (on levophed) - possible septic shock - likely sources include lungs, urine, lines. Respiratory secretions minimal. Vital Signs: Temp Pulse Resp BP SpO2 FiO2 99.5 F 111 23 112/57 94 30 Physical Exam: Gen:obtunded HEENT:pupils midposition and reactive. Lungs:occasional rhonchi Cardiac: no murmurs Abdomen: Extremities:2-3+ edema Neuro: can't test weakness because of poor mental status. Fluid Balance (Past 24 Hours): 10/19/18 10/20/18 10/21/18 06:59 06:59 06:59 Intake Total 3414 1354 2328 Output Total 3625 2270 1511 Balance -211 -916 817 Weight 190 lb 184 lb 185 lb Intake: IV Fluids 1093 914 94 D5W 758 677 54 NS 189 237 40 Potassium Chloride 146 IVPB 1101 60 ABX - CEFTRIAXONE 60 60 D5W 646 Mag 120 Potassium Chloride 275 Oral 0 Tube Feeding 882 905 4980 Tube Feeding Flush Amount 510 455 Output: Kelly 2990 2270 1111 Nephrostomy #1 20 400 Tube Feeding Residual 615 Amount Wasted Other: Date of Last Bowel 10/18/18 10/20/18 10/20/18 Movement # Bowel Movements 1 1 1 Estimated Stool Amount Medium Large Large Labs: 10/18/18 10/21/18 10/21/18 05:15 05:00 05:00 WBC 7.5 RBC 2.60 L Hgb 8.1 L Hct 24 L MCV 91 MCH 31 MCHC 34 RDW 15 Plt Count 77 L D MPV 12.0 H [id number] Activity 40 L [id number] Activity Intrp See comment Sodium 144 Potassium 3.9 Chloride 110 Carbon Dioxide 24 Anion Gap 10 BUN 95 H Creatinine 2.30 H Est GFR ( Amer) 35.2 Est GFR (Non-Af Amer) 29.1 BUN/Creatinine Ratio 41.3 H Glucose 125 H Lactic Acid Calcium 8.0 L Phosphorus 2.3 L Magnesium 1.9 10/21/18 17:10 WBC RBC Hgb Hct MCV MCH MCHC RDW Plt Count MPV [id number] Activity [id number] Activity Intrp Sodium Potassium Chloride Carbon Dioxide Anion Gap BUN Creatinine Est GFR ( Amer) Est GFR (Non-Af Amer) BUN/Creatinine Ratio Glucose Lactic Acid 2.3 H* Calcium Phosphorus Magnesium Studies: CXR - Diffuse infiltrates both lungs - no real change from prior films. Nutrition: Tube feedings Impression: 1. Probable sepsis with septic shock - unknown primary 2. 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 Culture urine, sputum, and blood. Start cefepime empirically. 2. Nerve conduction studies and EMGs Critical Care Time: 45 minutes
[2018-10-22 05:15] LABS: Hematocrit 23 % (42-52); Hemoglobin 7.8 g/dL (14.0-18.0); Mean Corpuscular HGB Conc 34 g/dL (31-36); Mean Corpuscular Hemoglobin 31 pg (27-31); Mean Corpuscular Volume 91 fL (80-94); Mean Platelet Volume 10.4 fL (7.4-10.4); Platelet Count 149 10^3/uL (150-450); Red Blood Count 2.54 10^6 /uL (4.18-5.48); Red Cell Distribution Width 16 % (10-15)
[2018-10-22 05:25] LABS: BUN/Creatinine Ratio 41.4 (8-20); Calcium 7.6 mg/dL (8.6-10.3); EGFR African American 33.6 (>60); EGFR Non-African American 27.8 (>60); Potassium 4.3 mmol/L (3.5-5.0)
[2018-10-22] MEDS: Acetaminophen ADULT LIQ* 650 MG/20.3 ML UDC PO PRN ×2 (05:25→22:54)
[2018-10-22] MEDS: Morphine 4 MG/ML VIAL (1 ml) 4 MG/ML VIAL IV PRN ×4 (05:25→20:04)
[2018-10-22] MEDS: Norepinephrine 16MCG/ML IVPRE* 4,000 MCG/250 ML BAG IV SCH ×6 (05:33→22:21)
[2018-10-22] MEDS: Furosemide IV* 10 MG/ML VIAL (40 MG) IV SCH (07:27)
[2018-10-22] MEDS: Chlorhexidine MOUTHWASH 0.12%* 15 ML UDC SWISH SPIT SCH ×3 (07:59→20:04)
[2018-10-22] MEDS: Pantoprazole IV* 40 MG IV SCH (07:59)
[2018-10-22] MEDS: Digoxin TAB* 0.125 MG PO SCH (07:59)
[2018-10-22] MEDS: levETIRAcetam LIQ* 500 MG/5 ML UDC PO SCH ×2 (09:07→20:04)
[2018-10-22] MEDS: DULoxetine DR CAP* 30 MG CAP.DR PO SCH (09:07)
[2018-10-22] MEDS: Valproic Acid LIQ(*) 250 MG/5 ML UDC PO SCH ×2 (09:08→20:04)
[2018-10-22] MEDS: Cefepime 1 GM in Dextrose(*) 1 GM/50 ML BAG IV SCH (15:07)
--- NOTE | 2018-10-22 16:24 | PN ---
Date of Service: 10/22/18 Critical Care Services: Clinical status unchanged past 24 hrs. Sputum growing fransisca (no ther source). Is on levophed for presumed septic shock (lactate yesterday 2.3). Vital Signs: Temp Pulse Resp BP SpO2 FiO2 99.1 F 114 18 104/52 93 40 NOTE: Tmax 101 past 24 hrs. Physical Exam: Physical exam unchanged from yesterday. Still with profound limb weakness Fluid Balance (Past 24 Hours): 10/20/18 10/21/18 10/22/18 06:59 06:59 06:59 Intake Total 1354 2328 1694 Output Total 2270 1511 1121 Balance -916 817 573 Weight 184 lb 8 oz 185 lb 10.067 oz 180 lb 15.992 oz Intake: IV Fluids 914 94 ABX - CEFEPIME D5W 677 54 NS 237 40 IVPB 60 59 ABX - CEFEPIME 59 ABX - CEFTRIAXONE 60 Medicated IV 235 Levophed 235 Oral 0 0 Tube Feeding 440 1719 800 Tube Feeding Flush Amount 455 600 Output: Kelly 2270 1111 921 Nephrostomy #1 400 200 Other: Date of Last Bowel 10/20/18 10/20/18 10/22/18 Movement # Bowel Movements 1 1 1 Estimated Stool Amount Large Large Medium Labs: 0 10/21/18 10/22/18 10/22/18 17:10 05:00 05:00 WBC 15.0 H Hgb 7.8 L Hct 23 L MCV 91 Plt Count 149 MPV 10.4 Sodium 146 H Potassium 4.3 Chloride 113 H Carbon Dioxide 24 Anion Gap 9 BUN 99 Creatinine 2.39 Glucose 145 H Lactic Acid 2.3 H* Calcium 7.6 L Studies: Urine culture negative. Sputum culture as mentioned. Blood culture: results pending. Nutrition: Tube feedings Impression: 1. Inflammatory shock - presumed sepsis, but no pathogen isolated. 2. Fransisca in sputum is nondiagnostic, and fungal pneumonias are uncommon in this type of patient. 3. I am concerned about the profound weakness in this patient, and the possibility of critical illness neuromyopathy. Plan: 1. Continue present antibiotic coverage for now. I will not add coverage for fransisca. 2. EMG and nerve conduction studies for tomorrow. 3. Decisions about future care will depend on the results of the EMG/nerve conduction studies. I spoke with both sisters today about patients current condition. Critical Care Time: 40 minutes
[2018-10-22 17:18] LABS: Albumin 1.6 g/dL (3.4-4.7); Albumin/Globulin Ratio 0.54; Gamma Globulin 1.6 g/dL (0.6-1.6); Total Protein(PEP) 4.7 g/dL (6.3 - 7.9)
[2018-10-23] MEDS: Norepinephrine 16MCG/ML IVPRE* 4,000 MCG/250 ML BAG IV SCH ×6 (02:19→18:58)
[2018-10-23 03:35] LABS: Hematocrit 23 % (42-52); Hemoglobin 7.5 g/dL (14.0-18.0); Mean Corpuscular HGB Conc 33 g/dL (31-36); Mean Corpuscular Hemoglobin 30 pg (27-31); Mean Corpuscular Volume 93 fL (80-94); Mean Platelet Volume 9.2 fL (7.4-10.4); Platelet Count 193 10^3/uL (150-450); Red Blood Count 2.48 10^6 /uL (4.18-5.48); Red Cell Distribution Width 16 % (10-15); White Blood Count 20.8 10^3/uL (3.5-10.8)
[2018-10-23 03:49] LABS: BUN/Creatinine Ratio 44.4 (8-20); Calcium 7.9 mg/dL (8.6-10.3); EGFR African American 33.6 (>60); EGFR Non-African American 27.8 (>60); Magnesium 1.8 mg/dL (1.9-2.7); Phosphorus 3.8 mg/dL (2.5-5.0); Potassium 4.7 mmol/L (3.5-5.0)
[2018-10-23] MEDS: Acetaminophen ADULT LIQ* 650 MG/20.3 ML UDC PO PRN (05:05)
[2018-10-23] MEDS: Chlorhexidine MOUTHWASH 0.12%* 15 ML UDC SWISH SPIT SCH ×3 (09:13→20:37)
[2018-10-23] MEDS: levETIRAcetam LIQ* 500 MG/5 ML UDC PO SCH ×2 (09:14→20:38)
[2018-10-23] MEDS: Famotidine SUSP ORALSYR 8 MG/ML G TUBE SCH (09:14)
[2018-10-23] MEDS: Valproic Acid LIQ(*) 250 MG/5 ML UDC PO SCH ×2 (09:15→20:38)
[2018-10-23] MEDS: DULoxetine DR CAP* 30 MG CAP.DR PO SCH (09:15)
--- NOTE | 2018-10-23 14:38 | CONSULT ---
Palliative / Hospice Consult Ordering Provider: Tarik Anderson Referselene Reason: Goals of care discussion - Subjective Code Status: Full Code Advance Directives Location: No Advance Directives - History or Present Illness History or Present Illness: 63yo male presents with L flank pain, seizure and fever x 1 day. 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 Pt is a manager field sales, an ex smoker, ex etoh user, with 2 children Kang 18, Iglesia 20. Sister Tiffani is his HCP. 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 Coli. All history is from sisters Beverly and Tiffani and medical records. Pt was admitted with sepsis secondary to E.Coli from the L renal calculi in kidney which was found to have purulent drainage after nephrostomy tube placement. Pt developed a suspected RML pneumonia and septic shock requiring intubation on . Pt continues to be in critical condition with poor prognosis. Lab Values: Abnormal Lab Results 10/18/18 10/23/18 10/23/18 05:15 03:25 03:25 WBC 20.8 H RBC 2.48 L Hgb 7.5 L Hct 23 L MCV 93 MCH 30 MCHC 33 RDW 16 H Plt Count 193 MPV 9.2 Sodium 148 H Potassium 4.7 Chloride 115 H Carbon Dioxide 25 Anion Gap 8 BUN 106 H Creatinine 2.39 H Est GFR ( Amer) 33.6 Est GFR (Non-Af Amer) 27.8 BUN/Creatinine Ratio 44.4 H Glucose 136 H Calcium 7.9 L Phosphorus 3.8 Magnesium 1.8 L Total Creatine Kinase 23 Total Protein (PEP) 4.7 L Albumin (PEP) 1.6 L Albumin/Globulin (PEP) 0.54 Cdtty-4-Lfjaqmogi 0.3 Shxhm-3-Gmttejknl 0.7 Npat-0-Ngkpypid 0.5 L Gamma Globulins 1.6 M-Ross Not Reportable M-Ross 2 Not Reportable PEP Impression See comment Laboratory Last Values WBC 20.8 10^3/uL (3.5-10.8) H 10/23/18 03:25 RBC 2.48 10^6 /uL (4.18-5.48) L 10/23/18 03:25 RBC (Retic) 2.77 10^6/uL (4.18-5.48) L 10/18/18 05:15 Hgb 7.5 g/dL (14.0-18.0) L 10/23/18 03:25 Hct 23 % (42-52) L 10/23/18 03:25 HCT (Retic) 25 % (42-52) L 10/18/18 05:15 MCV 93 fL (80-94) 10/23/18 03:25 MCH 30 pg (27-31) 10/23/18 03:25 MCHC 33 g/dL (31-36) 10/23/18 03:25 RDW 16 % (10-15) H 10/23/18 03:25 Plt Count 193 10^3/uL (150-450) 10/23/18 03:25 MPV 9.2 fL (7.4-10.4) 10/23/18 03:25 Neut % (Auto) 84.5 % 10/18/18 05:15 Lymph % (Auto) 7.2 % 10/18/18 05:15 [place] % (Auto) 7.8 % 10/18/18 05:15 Eos % (Auto) 0.4 % 10/18/18 05:15 Baso % (Auto) 0.1 % 10/18/18 05:15 Absolute Neuts (auto) 1.8 10^3/ul (1.5-7.7) 10/18/18 05:15 Absolute Lymphs (auto) 0.2 10^3/ul (1.0-4.8) L 10/18/18 05:15 Absolute Monos (auto) 0.2 10^3/ul (0-0.8) 10/18/18 05:15 Absolute Eos (auto) 0.0 10^3/ul (0-0.6) 10/18/18 05:15 Absolute Basos (auto) 0.0 10^3/ul (0-0.2) 10/18/18 05:15 Absolute Nucleated RBC 0.0 10^3/ul 10/18/18 05:15 Neutrophils % 82.0 % 10/16/18 04:48 Lymphocytes % 11.0 % 10/16/18 04:48 Monocytes % 7.0 % 10/16/18 04:48 Nucleated RBC % 1.1 10/18/18 05:15 Normal RBC Morphology Normal (Normal) 10/16/18 04:48 Retic Count, Calc 1.9 % (0.5-1.5) H 10/18/18 05:15 Corrected Retic Count 1.1 % (0.5-1.5) 10/18/18 05:15 Retic Shift Factor 2.0 10/18/18 05:15 Retic Production Index 0.60 10/18/18 05:15 Immature Retic Fraction 0.86 10/18/18 05:15 Mean Retic Volume 126.4 10/18/18 05:15 Hem Pathologist Commnt 10/16/18 04:48 INR (Anticoag Therapy) 1.60 (0.82-1.09) H 10/18/18 05:15 APTT 41.3 seconds (26.0-38.0) H 10/10/18 17:30 Fibrinogen > 593.6 mg/dL (110.8-404.3) H 10/10/18 21:45 HIT Functional 0.149 OD (<0.400) 10/16/18 09:35 [id number] Activity 40 % (>/=70) L 10/18/18 05:15 [id number] Activity Intrp See comment 10/18/18 05:15 Patient Temperature Not Reportable 10/12/18 05:47 ABG pH 7.00 (7.35-7.45) L* 10/12/18 05:47 ABG pH (Temp Correct) Not Reportable 10/12/18 05:47 ABG pCO2 32 mmHg (35-45) L 10/12/18 05:47 ABG pCO2 (Temp Corrct Not Reportable 10/12/18 05:47 ABG pO2 72 mmHg (80-100) L 10/12/18 05:47 ABG pO2 (Temp Correct Not Reportable 10/12/18 05:47 ABG HCO3 7.3 mmol/L (19-31) L* 10/12/18 05:47 ABG O2 Saturation 96.6 % (94.0-98.0) 10/12/18 05:47 ABG Base Excess -22.5 mmol/L (-2.0-2.0) L 10/12/18 05:47 VBG pH 7.29 (7.32-7.43) L 10/13/18 05:20 VBG pCO2 29 mmHg (41-51) L 10/13/18 05:20 VBG pO2 53.0 mmHg (35-45) H 10/13/18 05:20 VBG HCO3 15.8 mmol/L (24-28) L 10/13/18 05:20 VBG O2 Saturation 85.5 % (70-80) H 10/13/18 05:20 VBG Base Excess -11.2 mmol/L (0.0-4.0) L 10/13/18 05:20 Respiration Rate Not Reportable 10/12/18 05:47 O2 Delivery Device 3lpm nc 10/10/18 21:31 Ventilator Type Not Reportable 10/12/18 05:47 Vent Mode Not Reportable 10/12/18 05:47 FiO2 50 10/12/18 05:47 Inspiratory Time Not Reportable 10/12/18 05:47 PEEP Not Reportable 10/12/18 05:47 Pressure Support Not Reportable 10/12/18 05:47 Pressure Control Not Reportable 10/12/18 05:47 EPAP Not Reportable 10/12/18 05:47 IPAP Not Reportable 10/12/18 05:47 BiPAP Not Reportable 10/12/18 05:47 Sodium 148 mmol/L (135-145) H 10/23/18 03:25 Potassium 4.7 mmol/L (3.5-5.0) 10/23/18 03:25 Chloride 115 mmol/L (101-111) H 10/23/18 03:25 Carbon Dioxide 25 mmol/L (22-32) 10/23/18 03:25 Anion Gap 8 mmol/L (2-11) 10/23/18 03:25 BUN 106 mg/dL (6-24) H 10/23/18 03:25 Creatinine 2.39 mg/dL (0.67-1.17) H 10/23/18 03:25 Est GFR ( Amer) 33.6 (>60) 10/23/18 03:25 Est GFR (Non-Af Amer) 27.8 (>60) 10/23/18 03:25 BUN/Creatinine Ratio 44.4 (8-20) H 10/23/18 03:25 Glucose 136 mg/dL (70-100) H 10/23/18 03:25 Lactic Acid 2.3 mmol/L (0.5-2.0) H* 10/21/18 17:10 Calcium 7.9 mg/dL (8.6-10.3) L 10/23/18 03:25 Ionized Calcium 1.11 mmol/L (1.16-1.32) L 10/15/18 05:25 Phosphorus 3.8 mg/dL (2.5-5.0) 10/23/18 03:25 Magnesium 1.8 mg/dL (1.9-2.7) L 10/23/18 03:25 Total Bilirubin 1.20 mg/dL (0.2-1.0) H 10/18/18 05:15 Direct Bilirubin 0.70 mg/dL (0.03-0.18) H 10/18/18 05:15 Indirect Bilirubin 0.5 mg/dL (0.3-1.0) 10/18/18 05:15 AST 10 U/L (13-39) L 10/18/18 05:15 ALT < 3 U/L (7-52) L 10/18/18 05:15 Alkaline Phosphatase 46 U/L (34-104) 10/18/18 05:15 Ammonia 46 mcmol/L (16-53) 10/15/18 05:25 Lactate Dehydrogenase 260 U/L (140-271) 10/18/18 05:15 Total Creatine Kinase 23 U/L (10-223) 10/23/18 03:25 Troponin I 0.74 ng/mL (<0.04) H* 10/11/18 23:50 B-Natriuretic Peptide 542 pg/mL (<=100) H 10/11/18 05:47 Total Protein 5.0 g/dL (6.4-8.9) L 10/18/18 05:15 Total Protein (PEP) 4.7 g/dL (6.3 - 7.9) L 10/18/18 05:15 Albumin 2.0 g/dL (3.2-5.2) L 10/18/18 05:15 Albumin (PEP) 1.6 g/dL (3.4-4.7) L 10/18/18 05:15 Globulin 3.0 g/dL (2-4) 10/18/18 05:15 Albumin/Globulin Ratio 0.7 (1-3) L 10/18/18 05:15 Albumin/Globulin (PEP) 0.54 10/18/18 05:15 Ixnih-2-Tsjnwuwjw 0.3 g/dL (0.1-0.3) 10/18/18 05:15 Patem-2-Qdnpknlby 0.7 g/dL (0.6-1.0) 10/18/18 05:15 Rgvj-7-Ybpgtppk 0.5 g/dL (0.7-1.2) L 10/18/18 05:15 Gamma Globulins 1.6 g/dL (0.6-1.6) 10/18/18 05:15 M-Ross Not Reportable 10/18/18 05:15 M-Ross 2 Not Reportable 10/18/18 05:15 PEP Impression See comment 10/18/18 05:15 Urine Color Nell 10/09/18 16:59 Urine Appearance Turbid 10/09/18 16:59 Urine pH 5.0 (5-9) 10/09/18 16:59 Ur Specific [place] 1.013 (1.010-1.030) 10/09/18 16:59 Urine Protein 2+(100 mg/dl) (Negative) A 10/09/18 16:59 Urine Ketones Negative (Negative) 10/09/18 16:59 Urine Blood 2+ (Negative) A 10/09/18 16:59 Urine Nitrate Negative (Negative) 10/09/18 16:59 Urine Bilirubin Negative (Negative) 10/09/18 16:59 Urine Urobilinogen Negative (Negative) 10/09/18 16:59 Ur Leukocyte Esterase 3+ (Negative) A 10/09/18 16:59 Urine WBC (Auto) 3+(>20/hpf) (Absent) A 10/09/18 16:59 Urine RBC (Auto) 3+(>10/hpf) (Absent) A 10/09/18 16:59 Urine Bacteria 1+ (Absent) A 10/09/18 16:59 Urine Glucose Negative (Negative) 10/09/18 16:59 Digoxin 1.7 ng/ml (0.8-2.0) 10/15/18 13:52 Valproic Acid 38.0 mcg/mL (50-100) L 10/14/18 11:27 Free Valproic Acid 8 mcg/mL (5 - 25) 10/15/18 13:52 Total Valproic Acid 23 mcg/mL (50 - 125) L 10/15/18 13:52 Levetiracetam 40.2 mcg/mL 10/18/18 05:15 Heparin-PF4 Ab Interp Negative (Negative) 10/16/18 09:35 Heparin-PF4 Ab Comment See comment 10/16/18 09:35 Blood Type O Positive 10/13/18 05:55 Antibody Screen Negative 10/13/18 05:55 Crossmatch See Detail 10/13/18 05:55 - Objective Active Medications: Acetaminophen (Tylenol Adult Liq*) 650 mg PO Q6H PRN PRN Reason: FEVER/PAIN Last Admin: 10/23/18 05:05 Dose: 650 mg Artificial Tears (Lacrilube Oint*) 1 applic BOTH EYES Q4H PRN PRN Reason: DRY EYE Last Admin: 10/14/18 16:55 Dose: 1 drop Chlorhexidine Gluconate (Peridex Mouth Wash 0.12%*) 15 ml SWISH SPIT TID [facility] Last Admin: 10/23/18 09:13 Dose: 15 ml Digoxin (Lanoxin Tab*) 0.125 mg PO EVERY OTHER DAY [facility] Last Admin: 10/22/18 07:59 Dose: 0.125 mg Duloxetine HCl (Cymbalta Cap*) 30 mg PO DAILY [facility] Last Admin: 10/23/18 09:15 Dose: 30 mg Famotidine (Pepcid Susp 8mg/Ml) 20 mg G TUBE DAILY [facility] Last Admin: 07/25/19 09:14 Dose: 20 mg Norepinephrine Bitartrate (Levophed 16 Mcg/Ml Premix*) 4,000 mcg in 250 mls @ 18.75 mls/hr IV .PER PROTOCOL [facility]; Protocol Last Admin: 10/23/18 09:06 Dose: 75 mls/hr Cefepime HCl (Maxipime 1 Gm In Dextrose Duplex (*)) 1 gm in 50 mls @ 100 mls/ hr IV DAILY@1500 [facility] Last Admin: 10/22/18 15:07 Dose: 100 mls/hr Levetiracetam (Keppra Liq*) 500 mg PO BID [facility] Last Admin: 10/23/18 09:14 Dose: 500 mg Morphine Sulfate (Morphine 4 Mg/Ml Vial (1 Ml)) 4 mg IV Q4H PRN PRN Reason: PAIN Last Admin: 10/22/18 20:04 Dose: 4 mg Valproic Acid (Depakene Liq(*)) 750 mg PO BID [facility] Last Admin: 10/23/18 09:15 Dose: 750 mg Vital Signs: Vital Signs: Temp Pulse Resp BP Pulse Ox 102.8 F 119 18 93/45 98 10/23/18 07:28 10/23/18 08:15 10/23/18 06:48 10/23/18 08:00 10/23/18 08:15 Patient Weight: Weight 82.7 kg Intake and Output: Intake & Output 10/21/18 10/22/18 10/23/18 10/24/18 06:59 06:59 06:59 06:59 Intake Total 2328 1694 2746 60 Output Total 1511 1121 1087 60 Balance 671 000 9143 0 Weight 84.2 kg 82.1 kg 82.7 kg Intake: IV Fluids 94 1141 ABX - CEFEPIME 1086 D5W 54 NS 40 55 IVPB 60 59 ABX - CEFEPIME 59 ABX - CEFTRIAXONE 60 Medicated IV 235 725 Levophed 235 725 Oral 0 Tube Feeding 1719 800 560 Tube Feeding Flush Amount 455 600 320 60 Output: Kelly 1111 921 787 60 Nephrostomy #1 400 200 200 Nephrostomy #2 100 Other: Date of Last Bowel 10/20/18 10/22/18 10/23/18 Movement # Bowel Movements 1 1 1 Estimated Stool Amount Large Medium Large ADLs: Meal Record Start: 10/09/18 20: 50 Freq: Status: Active Protocol: Created 10/09/18 20:50 System (Rec: 10/09/18 20:50 System RESP-C03) Document 10/10/18 09:00 [id number] (Rec: 10/10/18 11:00 [id number] ICU-C07) Document 10/10/18 13:00 FKY1877 (Rec: 10/10/18 17:54 [id number] ICU-C07) Document 10/10/18 18:00 SBE7242 (Rec: 10/10/18 18:17 RYL7423 ICU-C07) Document 10/12/18 18:00 BZK7615 (Rec: 10/12/18 19:33 KLR7811 ICU-C56) Document 10/15/18 09:00 SNB0456 (Rec: 10/15/18 09:34 JSN2311 ICU-C06) Document 10/15/18 11:20 KAB4351 (Rec: 10/15/18 11:20 MEI5456 ICU-C06) Document 10/15/18 17:09 AHM0509 (Rec: 10/15/18 17:09 KUZ6685 ICU-C06) Intake and Output Start: 10/09/18 15: 06 Freq: Status: Active Protocol: Created 10/09/18 15:06 System (Rec: 10/09/18 15:06 System [id number]) Intake and Output Start: 10/09/18 20: 50 Freq: Q1HR Status: Active Protocol: Created 10/09/18 20:50 System (Rec: 10/09/18 20:50 System RESP-C03) Document 10/09/18 23:00 [id number] (Rec: 10/09/18 23:21 XIG0919 ICU-C06) Document 10/10/18 00:00 MQK7265 (Rec: 10/10/18 01:20 JND3198 ICU-C06) Document 10/10/18 01:00 NHX7648 (Rec: 10/10/18 01:20 GJW4632 ICU-C06) Document 10/10/18 02:00 MGK3497 (Rec: 10/10/18 02:13 ONP6943 ICU-C06) Document 10/10/18 03:00 OJQ6593 (Rec: 10/10/18 05:15 HNE9793 ICU-C06) Document 10/10/18 04:00 TXM8630 (Rec: 10/10/18 05:15 QKE0899 ICU-C06) Document 10/10/18 05:00 ZWV3901 (Rec: 10/10/18 05:15 BMH2346 ICU-C06) Document 10/10/18 06:00 FAM4154 (Rec: 10/10/18 06:08 XYO3928 ICU-C06) Document 10/10/18 07:00 COC5076 (Rec: 10/10/18 07:10 PKX3247 ICU-C07) Document 10/10/18 08:00 STB7299 (Rec: 10/10/18 10:53 YWS2464 ICU-C07) Document 10/10/18 09:00 CYV6049 (Rec: 10/10/18 10:53 SPO0552 ICU-C07) Document 10/10/18 10:00 TFN1119 (Rec: 10/10/18 10:53 CAX4832 ICU-C07) Document 10/10/18 11:00 MRO4126 (Rec: 10/10/18 11:09 CZL7451 ICU-C07) Document 10/10/18 12:00 SEK9197 (Rec: 10/10/18 17:48 WHI9118 ICU-C07) Document 10/10/18 13:00 ZDK1109 (Rec: 10/10/18 17:48 VQI6892 ICU-C07) Document 10/10/18 14:00 CBY1853 (Rec: 10/10/18 17:48 XCT6183 ICU-C07) Document 10/10/18 15:00 IGS0067 (Rec: 10/10/18 17:48 AVC3408 ICU-C07) Document 10/10/18 16:00 RIG4373 (Rec: 10/10/18 17:48 WQJ6532 ICU-C07) Document 10/10/18 17:00 ZFN3862 (Rec: 10/10/18 17:48 DIF0398 ICU-C07) Document 10/10/18 18:00 LNC4626 (Rec: 10/10/18 18:17 GBJ9667 ICU-C07) Document 10/10/18 21:00 MIE9784 (Rec: 10/11/18 02:18 KJN6955 ICU-C07) Document 10/11/18 00:00 HLW6468 (Rec: 10/11/18 02:18 EEK1306 ICU-C07) Document 10/11/18 02:00 SLR8929 (Rec: 10/11/18 02:19 QGO5448 ICU-C07) Document 10/11/18 03:00 YBZ8446 (Rec: 10/11/18 03:30 AAQ4727 ICU-C07) Document 10/11/18 05:00 MEJ3704 (Rec: 10/11/18 05:12 QRU0555 ICU-C07) Document 10/11/18 06:00 FLO2696 (Rec: 10/11/18 06:11 MXR3814 ICU-M29) Document 10/11/18 07:00 EXS1548 (Rec: 10/11/18 07:05 CHG5181 ICU-M29) Document 10/11/18 10:00 TLT3141 (Rec: 10/11/18 10:36 MKS8408 ICU-C07) Document 10/11/18 14:00 EPO6167 (Rec: 10/11/18 14:25 DRL9344 ICU-M29) Document 10/11/18 17:00 ZUC8339 (Rec: 10/11/18 17:24 OZU8026 ICU-C07) Document 10/11/18 18:00 IDR4189 (Rec: 10/11/18 19:19 IFA1380 ICU-C56) Document 10/11/18 19:00 CEV3478 (Rec: 10/11/18 21:14 IGP4164 ICU-C06) Document 10/11/18 20:00 QFT9459 (Rec: 10/11/18 21:14 XJU9917 ICU-C06) Document 10/11/18 21:00 VBL6185 (Rec: 10/11/18 21:14 QZK9485 ICU-C06) Document 10/11/18 22:16 UXC7508 (Rec: 10/11/18 22:18 NIU1864 ICU-C06) Document 10/11/18 23:00 GCH1041 (Rec: 10/12/18 00:09 OWJ0989 ICU-C06) Document 10/12/18 00:00 IJM2150 (Rec: 10/12/18 00:09 LUJ7124 ICU-C06) Document 10/12/18 00:15 HNE8253 (Rec: 10/12/18 00:15 XSF1539 ICU-C06) Document 10/12/18 01:00 VZH9987 (Rec: 10/12/18 03:23 GJF7552 ICU-C06) Document 10/12/18 02:00 LNI9197 (Rec: 10/12/18 03:23 QCA8196 ICU-C06) Document 10/12/18 03:00 EAM3121 (Rec: 10/12/18 03:23 BQC1975 ICU-C06) Document 10/12/18 04:15 AHG4043 (Rec: 10/12/18 05:09 ACT3962 ICU-C06) Document 10/12/18 05:00 HRA4200 (Rec: 10/12/18 05:34 ERX1799 ICU-C06) Document 10/12/18 06:00 SPJ8303 (Rec: 10/12/18 06:11 ZYV4160 ICU-C06) Document 10/12/18 08:00 DHD0051 (Rec: 10/12/18 08:20 MEV4036 ICU-C06) Document 10/12/18 11:00 FUB1308 (Rec: 10/12/18 11:56 GQP3667 ICU-C06) Document 10/12/18 16:00 JSA7854 (Rec: 10/12/18 16:37 HHE0534 ICU-M29) Document 10/12/18 21:52 SOA3087 (Rec: 10/12/18 21:52 GSY2858 ICU-C06) Document 10/12/18 23:00 TNU9599 (Rec: 10/12/18 23:16 FFG1977 ICU-C06) Document 10/13/18 00:55 QUV4788 (Rec: 10/13/18 00:55 EWH5328 ICU-C06) Document 10/13/18 04:00 WPO0572 (Rec: 10/13/18 04:02 EEZ1768 ICU-C06) Document 10/13/18 05:00 QVU8488 (Rec: 10/13/18 05:09 KQX5245 ICU-C06) Document 10/13/18 05:44 FYO0109 (Rec: 10/13/18 05:44 JHV3237 ICU-C06) Document 10/13/18 06:00 URZ5129 (Rec: 10/13/18 06:02 DBJ9500 ICU-C06) Document 10/13/18 07:00 SMJ9359 (Rec: 10/13/18 07:49 QCN8480 ICU-M29) Document 10/13/18 07:48 MMO3253 (Rec: 10/13/18 07:49 ZUR2656 ICU-M29) Document 10/13/18 09:00 QXN3640 (Rec: 10/13/18 13:09 TOS4190 ICU-M29) Document 10/13/18 10:00 EIX6299 (Rec: 10/13/18 13:09 ICF9018 ICU-M29) Document 10/13/18 11:00 MVM6452 (Rec: 10/13/18 13:09 WRQ5120 ICU-M29) Document 10/13/18 12:00 XCM7656 (Rec: 10/13/18 13:09 CVX7469 ICU-M29) Document 10/13/18 13:00 JIS0299 (Rec: 10/13/18 13:09 BTC3024 ICU-M29) Document 10/13/18 14:00 ZAD6078 (Rec: 10/13/18 16:43 FHN9713 ICU-M29) Document 10/13/18 15:00 BAK6121 (Rec: 10/13/18 16:43 RUN0095 ICU-M29) Document 10/13/18 16:42 EXI4857 (Rec: 10/13/18 16:43 DPY9555 ICU-M29) Document 10/13/18 17:00 LZK3035 (Rec: 10/13/18 19:05 UHA6065 ICU-M29) Document 10/13/18 18:00 QKT9782 (Rec: 10/13/18 19:05 XLS5266 ICU-M29) Document 10/13/18 19:00 LTP0400 (Rec: 10/13/18 19:05 POA7285 ICU-M29) Document 10/13/18 20:00 QWP7306 (Rec: 10/13/18 20:19 ULL0422 ICU-C06) Document 10/13/18 21:00 NNK8826 (Rec: 10/13/18 21:29 ANW4110 ICU-C06) Document 10/13/18 22:00 SJF6677 (Rec: 10/13/18 22:09 QPD9339 ICU-C06) Document 10/13/18 23:00 RZW3658 (Rec: 10/13/18 23:29 NNR0858 ICU-C06) Document 10/14/18 01:00 UFU7546 (Rec: 10/14/18 01:44 VIN7644 ICU-C06) Document 10/14/18 03:00 TOX4687 (Rec: 10/14/18 03:20 DPZ4816 ICU-C06) Document 10/14/18 04:00 ZJO3770 (Rec: 10/14/18 04:54 DDK9745 ICU-C06) Document 10/14/18 06:00 JBL0886 (Rec: 10/14/18 06:00 FUX4316 ICU-C06) Document 10/14/18 06:30 CFY1345 (Rec: 10/14/18 06:30 XPS5855 ICU-C06) Document 10/14/18 07:00 ZVA0140 (Rec: 10/14/18 07:43 CYQ6300 ICU-C06) Document 10/14/18 08:00 WNG9757 (Rec: 10/14/18 10:09 IPZ0089 ICU-C06) Document 10/14/18 09:00 WJB0506 (Rec: 10/14/18 10:09 OSH6310 ICU-C06) Document 10/14/18 10:00 QJN8188 (Rec: 10/14/18 10:09 SPJ4804 ICU-C06) Document 10/14/18 11:00 YWC9499 (Rec: 10/14/18 11:23 MFE1162 ICU-M29) Document 10/14/18 11:00 UTB0507 (Rec: 10/14/18 16:14 NPK8623 ICU-C06) Document 10/14/18 12:00 VOX6647 (Rec: 10/14/18 12:46 MDY3257 ICU-C06) Document 10/14/18 13:00 EYU1492 (Rec: 10/14/18 13:04 ATD8390 ICU-C06) Document 10/14/18 14:00 FCG5410 (Rec: 10/14/18 15:54 OTT3289 ICU-C06) Document 10/14/18 15:54 NRK4916 (Rec: 10/14/18 15:54 GGG9002 ICU-C06) Document 10/14/18 16:54 XGF7403 (Rec: 10/14/18 16:54 QTZ0151 ICU-M29) Document 10/14/18 18:00 GXU5519 (Rec: 10/14/18 18:21 VNR1805 ICU-C06) Document 10/14/18 19:00 CDF7316 (Rec: 10/14/18 19:15 ISB3628 ICU-C06) Document 10/14/18 20:00 WTQ4328 (Rec: 10/14/18 21:02 CUF4233 ICU-C06) Document 10/14/18 21:00 ZZW3484 (Rec: 10/14/18 21:03 IVR1584 ICU-C06) Document 10/14/18 22:00 GQK2428 (Rec: 10/14/18 22:22 LZI1363 ICU-C06) Document 10/14/18 22:59 VTQ8058 (Rec: 10/14/18 22:59 VBR4335 ICU-C06) Document 10/15/18 00:00 USS7901 (Rec: 10/15/18 01:26 TOI2245 ICU-C06) Document 10/15/18 01:57 YDV3948 (Rec: 10/15/18 01:57 YOF7875 ICU-C06) Document 10/15/18 04:00 GYX8273 (Rec: 10/15/18 04:29 CJL7175 ICU-C06) Document 10/15/18 04:29 XGJ8206 (Rec: 10/15/18 04:30 VZF1099 ICU-C06) Document 10/15/18 05:00 GKY3218 (Rec: 10/15/18 05:40 KIX5099 ICU-C06) Document 10/15/18 07:00 EEB9534 (Rec: 10/15/18 07:10 VIS3990 ICU-C06) Document 10/15/18 08:00 MMB0029 (Rec: 10/15/18 08:35 ETG5981 ICU-M29) Document 10/15/18 09:00 DSA1087 (Rec: 10/15/18 10:29 BMT7280 ICU-C06) Document 10/15/18 10:00 QNJ5603 (Rec: 10/15/18 10:33 GXV1425 ICU-C06) Document 10/15/18 11:00 NDD1615 (Rec: 10/15/18 11:00 NCF2833 ICU-C06) Document 10/15/18 12:00 YOV5453 (Rec: 10/15/18 12:22 EKE2322 ICU-C06) Document 10/15/18 13:00 CCA9104 (Rec: 10/15/18 13:17 SWD1425 ICU-M29) Document 10/15/18 14:00 FGU5645 (Rec: 10/15/18 14:45 EVQ7673 ICU-M29) Document 10/15/18 15:00 PXY2583 (Rec: 10/15/18 15:02 IBH3957 ICU-M29) Document 10/15/18 17:00 FUY9721 (Rec: 10/15/18 17:01 EMF3718 ICU-C06) Document 10/15/18 17:40 UIO9524 (Rec: 10/15/18 17:41 FGN9419 ICU-C06) Document 10/15/18 18:00 UMD1190 (Rec: 10/15/18 18:02 ZKL6355 ICU-C06) Document 10/15/18 19:00 EIK0316 (Rec: 10/15/18 19:01 OHM3247 ICU-C06) Document 10/15/18 20:00 RRC4336 (Rec: 10/15/18 20:46 SDP1081 ICU-M29) Document 10/15/18 21:00 ATV2389 (Rec: 10/15/18 21:06 MXV8626 ICU-M29) Document 10/15/18 22:00 JFM0707 (Rec: 10/15/18 22:23 KOX9517 ICU-C06) Document 10/15/18 23:00 WUH2511 (Rec: 10/15/18 23:14 YOP4231 ICU-C06) Document 10/16/18 00:00 HQN1689 (Rec: 10/16/18 00:57 ZKL7888 ICU-M29) Document 10/16/18 00:58 PII7340 (Rec: 10/16/18 00:58 LOH7677 ICU-M29) Document 10/16/18 02:00 ILD7968 (Rec: 10/16/18 04:35 RSZ0284 ICU-C06) Document 10/16/18 03:00 DDR5430 (Rec: 10/16/18 04:35 DTC4827 ICU-C06) Document 10/16/18 04:00 YSC7533 (Rec: 10/16/18 04:53 ZZJ8561 ICU-M29) Document 10/16/18 04:53 PWT5001 (Rec: 10/16/18 04:53 ARO6695 ICU-M29) Document 10/16/18 06:00 RRU7064 (Rec: 10/16/18 06:09 RSD8049 ICU-C06) Document 10/16/18 07:00 RDT4198 (Rec: 10/16/18 08:59 PCN1432 ICU-C06) Document 10/16/18 08:00 BGA0434 (Rec: 10/16/18 08:59 LGY2147 ICU-C06) Document 10/16/18 09:00 ETD6237 (Rec: 10/16/18 09:13 ADL1465 ICU-C06) Document 10/16/18 10:00 DBW8039 (Rec: 10/16/18 12:18 GZY9045 ICU-C06) Document 10/16/18 11:00 BRI7502 (Rec: 10/16/18 12:18 KMH6123 ICU-C06) Document 10/16/18 12:00 YDH5212 (Rec: 10/16/18 13:15 AQS4855 ICU-C06) Document 10/16/18 13:00 FLS0158 (Rec: 10/16/18 13:15 ILN5835 ICU-C06) Document 10/16/18 14:00 XJF9141 (Rec: 10/16/18 14:04 VJT0844 ICU-C06) Document 10/16/18 15:00 AVE1022 (Rec: 10/16/18 15:22 IOI9615 ICU-M29) Document 10/16/18 16:00 MDW7440 (Rec: 10/16/18 17:17 DTE7564 ICU-C07) Document 10/16/18 17:00 WEL6907 (Rec: 10/16/18 17:17 OAW1273 ICU-C07) Document 10/16/18 18:00 CDT4375 (Rec: 10/16/18 18:12 DSJ3952 ICU-C07) Document 10/16/18 20:04 AXM0886 (Rec: 10/16/18 20:05 JDP3444 ICU-C06) Document 10/16/18 21:00 HQN0413 (Rec: 10/16/18 23:19 UJK8249 ICU-C06) Document 10/16/18 22:00 CLI0820 (Rec: 10/16/18 23:19 YQH2310 ICU-C06) Document 10/16/18 23:00 WTB4273 (Rec: 10/16/18 23:19 CJO7459 ICU-C06) Document 10/16/18 23:46 KAC6868 (Rec: 10/17/18 00:15 YNL3210 ICU-C06) Document 10/17/18 02:00 DFN4060 (Rec: 10/17/18 02:28 ORO8647 ICU-C06) Document 10/17/18 03:00 LZQ3060 (Rec: 10/17/18 04:03 WCT3059 ICU-C06) Document 10/17/18 04:00 OLE9020 (Rec: 10/17/18 04:14 QWJ5095 ICU-C06) Document 10/17/18 05:00 DDP5055 (Rec: 10/17/18 05:10 YZT5016 ICU-M29) Document 10/17/18 06:00 BPJ1718 (Rec: 10/17/18 06:09 PQR8867 ICU-M29) Document 10/17/18 07:00 VWU8935 (Rec: 10/17/18 08:15 ROU4385 ICU-M29) Document 10/17/18 08:00 XYV9336 (Rec: 10/17/18 08:15 EGV2725 ICU-M29) Document 10/17/18 09:00 DEW0730 (Rec: 10/17/18 09:47 PDL0257 ICU-C06) Document 10/17/18 10:00 JAC0316 (Rec: 10/17/18 10:41 UYV6037 ICU-C06) Document 10/17/18 11:00 MXL7368 (Rec: 10/17/18 11:14 GTU2529 ICU-M29) Document 10/17/18 12:00 RDH1515 (Rec: 10/17/18 14:04 DGA9789 ICU-C06) Document 10/17/18 12:00 AXR6505 (Rec: 10/17/18 13:30 QRJ2500 ICU-M29) Document 10/17/18 13:00 YUM5921 (Rec: 10/17/18 13:30 WIB7006 ICU-M29) Document 10/17/18 14:00 ZBR3526 (Rec: 10/17/18 14:05 XOG7153 ICU-C06) Document 10/17/18 15:45 BJK6287 (Rec: 10/17/18 15:45 SUI8293 ICU-M29) Document 10/17/18 16:00 CUQ0763 (Rec: 10/17/18 16:51 NDU6877 ICU-C06) Document 10/17/18 17:25 RCY2134 (Rec: 10/17/18 17:39 RUE5347 ICU-M29) Document 10/17/18 18:00 VOQ0210 (Rec: 10/17/18 18:25 LPV3494 ICU-C06) Document 10/17/18 19:57 LXP2134 (Rec: 10/17/18 19:58 DUN7703 ICU-M29) Document 10/17/18 21:00 XXF6591 (Rec: 10/17/18 23:12 NLS1505 ICU-M29) Document 10/17/18 23:00 LEG4630 (Rec: 10/17/18 23:13 KAY9592 ICU-M29) Document 10/18/18 00:00 CLK5239 (Rec: 10/18/18 00:06 JHV4797 ICU-M29) Document 10/18/18 01:00 RGT7014 (Rec: 10/18/18 01:09 YBY3978 ICU-M29) Document 10/18/18 02:00 KNN3638 (Rec: 10/18/18 02:04 IYV5215 ICU-M29) Document 10/18/18 03:00 RDZ4123 (Rec: 10/18/18 04:28 HBI7385 ICU-M23) Document 10/18/18 04:00 MIP3113 (Rec: 10/18/18 04:50 KND4177 ICU-C06) Document 10/18/18 05:00 DLC6569 (Rec: 10/18/18 05:20 KOK9354 ICU-C06) Document 10/18/18 05:58 BFO5486 (Rec: 10/18/18 05:58 QZQ0992 ICU-M29) Document 10/18/18 07:00 RGL7317 (Rec: 10/18/18 07:46 HBJ8656 ICU-M29) Document 10/18/18 08:00 YSD1307 (Rec: 10/18/18 09:07 AKR5867 ICU-M29) Document 10/18/18 08:00 GTL8400 (Rec: 10/18/18 14:20 SDT6676 ICU-M29) Document 10/18/18 09:00 VCK2469 (Rec: 10/18/18 09:07 RZI6327 ICU-M29) Document 10/18/18 10:00 DWL5750 (Rec: 10/18/18 10:48 LIW1474 ICU-M29) Document 10/18/18 11:00 FMO7648 (Rec: 10/18/18 11:21 OQS8954 ICU-M29) Document 10/18/18 12:00 ILW2323 (Rec: 10/18/18 13:16 MGH4905 ICU-M29) Document 10/18/18 13:00 RKJ5482 (Rec: 10/18/18 13:16 PJP4387 ICU-M29) Document 10/18/18 14:00 UAZ7919 (Rec: 10/18/18 14:16 UKQ3559 ICU-M29) Document 10/18/18 15:22 YJK9690 (Rec: 10/18/18 15:22 JWF7566 ICU-C20) Document 10/18/18 16:00 MFR3963 (Rec: 10/18/18 16:00 ROE4879 ICU-M29) Document 10/18/18 17:00 IUR9302 (Rec: 10/18/18 17:04 MSQ2621 ICU-C07) Document 10/18/18 17:52 QFE7243 (Rec: 10/18/18 17:53 CTI9446 ICU-M29) Document 10/18/18 19:00 VVP6453 (Rec: 10/18/18 19:00 YEO4228 ICU-M29) Document 10/18/18 20:00 VOG7133 (Rec: 10/18/18 21:52 VJD4941 ICU-M29) Document 10/18/18 21:00 NXK4847 (Rec: 10/18/18 21:52 RNJ8785 ICU-M29) Document 10/18/18 21:52 HDO0867 (Rec: 10/18/18 21:52 UNX1844 ICU-M29) Document 10/18/18 23:00 ACQ0440 (Rec: 10/19/18 02:06 YRL6603 ICU-M29) Document 10/19/18 00:00 LWY9214 (Rec: 10/19/18 02:06 UCS3322 ICU-M29) Document 10/19/18 02:00 UKF0621 (Rec: 10/19/18 02:07 LFY4073 ICU-M29) Document 10/19/18 03:00 FNR9530 (Rec: 10/19/18 03:05 DQZ2581 ICU-C06) Document 10/19/18 05:00 CWD4824 (Rec: 10/19/18 05:31 IUJ4256 ICU-M29) Document 10/19/18 06:00 NGL1384 (Rec: 10/19/18 06:04 OQE2329 ICU-M29) Document 10/19/18 07:00 HTV2698 (Rec: 10/19/18 07:21 WPZ9369 ICU-C06) Document 10/19/18 07:58 PVJ6251 (Rec: 10/19/18 07:59 TEY5600 ICU-M29) Document 10/19/18 09:00 AOB5656 (Rec: 10/19/18 09:32 KYE5227 ICU-C06) Document 10/19/18 10:00 CEB1235 (Rec: 10/19/18 11:00 QCB0281 ICU-C06) Document 10/19/18 11:00 GZH4041 (Rec: 10/19/18 11:00 FBU2125 ICU-C06) Document 10/19/18 11:01 PPQ0694 (Rec: 10/19/18 11:02 KNZ9802 ICU-C06) Document 10/19/18 12:00 WKA3206 (Rec: 10/19/18 12:54 DFH1747 ICU-C06) Document 10/19/18 12:54 TQH4404 (Rec: 10/19/18 12:54 PCH3567 ICU-C06) Document 10/19/18 14:00 QOH2203 (Rec: 10/19/18 14:11 FSD0942 ICU-M29) Document 10/19/18 14:56 LHY4823 (Rec: 10/19/18 14:56 BFG7588 ICU-C06) Document 10/19/18 15:00 ZBE5796 (Rec: 10/19/18 15:02 BIR2583 ICU-C06) Document 10/19/18 16:00 KAS3707 (Rec: 10/19/18 16:07 XTQ6595 ICU-M29) Document 10/19/18 17:00 NJB8321 (Rec: 10/19/18 17:25 YOK2358 ICU-C06) Document 10/19/18 18:00 GUV0391 (Rec: 10/19/18 18:31 ZBR1022 ICU-C06) Document 10/19/18 19:00 IYX7814 (Rec: 10/19/18 19:49 YIY6710 ICU-C06) Document 10/19/18 20:00 SED1240 (Rec: 10/19/18 21:57 DUF6561 ICU-C06) Document 10/19/18 21:00 OMU2171 (Rec: 10/19/18 21:57 MEL0345 ICU-C06) Document 10/19/18 21:57 UKC2007 (Rec: 10/19/18 21:57 KGS6977 ICU-C06) Document 10/19/18 23:00 LWM0648 (Rec: 10/20/18 00:28 FBO5828 ICU-C06) Document 10/20/18 00:00 AWY2638 (Rec: 10/20/18 00:29 FJY1803 ICU-C06) Document 10/20/18 01:00 DBC0057 (Rec: 10/20/18 01:10 AYP3958 ICU-C06) Document 10/20/18 02:00 MYJ8082 (Rec: 10/20/18 02:47 AIZ9259 ICU-C06) Document 10/20/18 02:55 UZK1475 (Rec: 10/20/18 02:56 YNR8721 ICU-C06) Document 10/20/18 04:00 JVV9061 (Rec: 10/20/18 04:36 EXC6760 ICU-C06) Document 10/20/18 05:00 YAW3998 (Rec: 10/20/18 06:22 ORI5591 ICU-C06) Document 10/20/18 06:00 TMT8680 (Rec: 10/20/18 06:22 QMO2621 ICU-C06) Document 10/20/18 07:00 AVY5700 (Rec: 10/20/18 07:07 PQG9729 ICU-M29) Document 10/20/18 08:00 KSZ5759 (Rec: 10/20/18 08:42 CJH9455 ICU-M29) Document 10/20/18 11:00 EEU8594 (Rec: 10/20/18 11:07 QIM6772 ICU-M29) Document 10/20/18 13:00 BPE7530 (Rec: 10/20/18 13:41 LJW3569 ICU-M29) Document 10/20/18 14:00 HCU5672 (Rec: 10/20/18 14:00 YIZ4772 ICU-M29) Document 10/20/18 15:00 NGG5208 (Rec: 10/20/18 15:11 SLG5048 ICU-C06) Document 10/20/18 16:00 ZML0596 (Rec: 10/20/18 16:10 KWG1838 ICU-M29) Document 10/20/18 17:00 WKB1132 (Rec: 10/20/18 17:46 MDZ2750 ICU-C06) Document 10/20/18 18:00 BBM5723 (Rec: 10/20/18 18:16 SON0246 ICU-M29) Document 10/20/18 19:00 TGY7514 (Rec: 10/20/18 19:05 VQJ9323 ICU-M29) Document 10/20/18 20:00 ZUH0332 (Rec: 10/20/18 20:15 HLN2298 ICU-M29) Document 10/20/18 21:00 UTV9871 (Rec: 10/20/18 21:50 HAT2091 ICU-C06) Document 10/20/18 22:00 RHM3337 (Rec: 10/20/18 22:03 PBF5191 ICU-C06) Document 10/20/18 22:55 KPL0592 (Rec: 10/20/18 23:02 SDL7841 ICU-C06) Document 10/21/18 00:41 LYQ8471 (Rec: 10/21/18 00:42 EKO8950 ICU-L03) Document 10/21/18 00:52 LJY0553 (Rec: 10/21/18 00:52 LKF2657 ICU-C06) Document 10/21/18 01:52 DTT2239 (Rec: 10/21/18 01:52 QBZ5999 ICU-C06) Document 10/21/18 02:57 ROJ4319 (Rec: 10/21/18 02:59 REX8106 ICU-C06) Document 10/21/18 04:00 UJE6749 (Rec: 10/21/18 04:02 FAJ0078 ICU-C06) Document 10/21/18 04:56 PRE3765 (Rec: 10/21/18 04:56 BER2724 ICU-C06) Document 10/21/18 05:51 IXM6257 (Rec: 10/21/18 06:01 SOM9152 ICU-C06) Document 10/21/18 07:00 WSB7697 (Rec: 10/21/18 07:24 QJW7008 ICU-C06) Document 10/21/18 07:58 SZW7143 (Rec: 10/21/18 08:12 TQX5411 ICU-C06) Document 10/21/18 09:00 GQL9619 (Rec: 10/21/18 09:53 FPV0220 ICU-M24) Document 10/21/18 10:00 PUY8204 (Rec: 10/21/18 11:47 MDT1078 ICU-C06) Document 10/21/18 11:00 EOK5580 (Rec: 10/21/18 13:31 QEE0392 ICU-C06) Document 10/21/18 12:00 PAM6726 (Rec: 10/21/18 13:31 JZH3064 ICU-C06) Document 10/21/18 13:00 SIO9003 (Rec: 10/21/18 13:32 FZP1274 ICU-C06) Document 10/21/18 14:00 JZZ1886 (Rec: 10/21/18 15:39 KYR3819 ICU-C06) Document 10/21/18 15:00 UYN0058 (Rec: 10/21/18 16:00 VHR5088 ICU-C06) Document 10/21/18 16:00 MIW7012 (Rec: 10/21/18 16:11 AIS9619 ICU-C06) Document 10/21/18 17:00 NVV6174 (Rec: 10/21/18 18:12 QVK1145 ICU-C06) Document 10/21/18 18:13 KZJ1645 (Rec: 10/21/18 18:15 LOV7867 ICU-C06) Document 10/21/18 19:00 KQQ5390 (Rec: 10/21/18 19:43 GWQ0660 ICU-C06) Document 10/21/18 20:00 YIU8195 (Rec: 10/21/18 20:40 XFW2616 ICU-C06) Document 10/21/18 21:00 ZKL8655 (Rec: 10/21/18 21:13 BEQ6385 ICU-C06) Document 10/21/18 22:00 EVQ6854 (Rec: 10/21/18 22:28 MNK2572 ICU-C06) Document 10/21/18 22:51 PCR5778 (Rec: 10/21/18 22:51 UUC6024 ICU-C06) Document 10/22/18 00:00 LGI2255 (Rec: 10/22/18 00:24 YNM3683 ICU-C06) Document 10/22/18 00:58 IQN5202 (Rec: 10/22/18 01:03 BRO4276 ICU-C06) Document 10/22/18 02:00 OAL4611 (Rec: 10/22/18 03:06 MNR0518 ICU-C06) Document 10/22/18 03:00 PEP1641 (Rec: 10/22/18 03:06 LGZ5390 ICU-C06) Document 10/22/18 04:00 CCR6338 (Rec: 10/22/18 04:02 MIM8758 ICU-C06) Document 10/22/18 05:00 GLX4381 (Rec: 10/22/18 05:04 YXV3229 ICU-C06) Document 10/22/18 06:00 RCO8017 (Rec: 10/22/18 06:03 TGS5608 ICU-C06) Document 10/22/18 06:41 KNG8062 (Rec: 10/22/18 06:42 IJC7601 ICU-C06) Document 10/22/18 08:00 YSB3324 (Rec: 10/22/18 08:11 QKU7319 ICU-M29) Document 10/22/18 09:00 HPA9418 (Rec: 10/22/18 09:06 FYQ2789 ICU-M29) Document 10/22/18 10:00 SIO4914 (Rec: 10/22/18 10:27 MHS3276 ICU-M29) Document 10/22/18 11:00 KUK0743 (Rec: 10/22/18 11:32 YFQ9168 ICU-M29) Document 10/22/18 12:00 ZBO5268 (Rec: 10/22/18 14:12 SZJ9216 ICU-M29) Document 10/22/18 13:00 HBW3308 (Rec: 10/22/18 14:12 OBH8472 ICU-M29) Document 10/22/18 14:00 ARM1460 (Rec: 10/22/18 14:12 IUV0994 ICU-M29) Document 10/22/18 15:00 URO2538 (Rec: 10/22/18 15:29 FKK4000 ICU-C12) Document 10/22/18 16:00 EKV5897 (Rec: 10/22/18 16:14 ZRT6324 ICU-C12) Document 10/22/18 16:58 SQN9026 (Rec: 10/22/18 16:58 RTL4738 ICU-M29) Document 10/22/18 18:00 LTJ2915 (Rec: 10/22/18 18:47 LID3840 ICU-M29) Document 10/22/18 19:00 AYQ4805 (Rec: 10/22/18 20:13 DMA1756 ICU-M29) Document 10/22/18 20:00 FTO5660 (Rec: 10/22/18 20:14 OTL7147 ICU-M29) Document 10/22/18 21:00 SLI3907 (Rec: 10/22/18 22:14 NNW0493 ICU-C12) Document 10/22/18 22:00 UHK1344 (Rec: 10/22/18 22:21 OQE4998 ICU-M29) Document 10/22/18 22:50 UZL4421 (Rec: 10/22/18 22:51 ALP5841 ICU-C12) Document 10/22/18 22:54 TVH0827 (Rec: 10/22/18 23:00 KRP0935 ICU-M29) Document 10/23/18 00:00 WSW8545 (Rec: 10/23/18 00:09 NSC1112 ICU-C12) Document 10/23/18 01:00 NHU6293 (Rec: 10/23/18 01:07 MII2982 ICU-C12) Document 10/23/18 02:00 DEZ6879 (Rec: 10/23/18 02:04 JAU8003 ICU-C12) Document 10/23/18 03:00 RWG7050 (Rec: 10/23/18 03:14 NRO1551 ICU-M30) Document 10/23/18 04:00 PZN3401 (Rec: 10/23/18 04:10 XEZ1802 ICU-C12) Document 10/23/18 05:00 TLH6533 (Rec: 10/23/18 05:04 BPY9877 ICU-M29) Document 10/23/18 06:00 WRI9701 (Rec: 10/23/18 06:12 QUR4090 ICU-C12) Document 10/23/18 06:47 GFO4883 (Rec: 10/23/18 06:48 WMD2338 ICU-C12) Document 10/23/18 09:00 WRZ1113 (Rec: 10/23/18 09:37 ZSG7251 ICU-C07) Head: Normal Ears/Nose/Mouth/Throat: Mucous Membranes Moist Neck: NL Appearance and Movements; NL JVP, Trachea Midline Respiratory: Symmetrical Chest Expansion and Respiratory Effort - diffuse rhonchi/wheeze Abdominal: NL Sounds; No Tenderness; No Distention Neurological: - - Sedated and unable to determine orientation - Assessment Assessment: 63 yo intubated male admitted with septic shock in critical condition - Plan Consult Plan (MU): Palliative Plan: Spoke with sisterroverto Paul in person and Tiffani via speaker phone. Pt is not able to contribute. Long discussion about their brother. He has been sick for a long time but always pulls through. He has had multiple surgeries on his heart and has had a tracheostomy in the past. Sisters describe him as wanting to be around for his sons and doing community service within his current living situation. They don't feel he is suffering because when he gets better he doesn' t regret his medical decisions. They are aware that he could this admission and have brought his children in to see him. Also realize he may not come off the vent and will have to be at a vent dependent facility. Father in 2016 from Parkinson's disease on hospice and mother in 2017 due to failure to thrive. Discussed code status and they feel their brother wants to be a full code. KPS 20%, PPS 10% - Time On Unit Date of Evaluation: 10/23/18 Hospice Consult Time in: 12:30 Hospice Consult Time Out: 14:00 Hospice Consult Time Total: 90 > 50% of Time Spend In Counseling or Coordinating Care: Yes
[2018-10-23] MEDS: Cefepime 1 GM in Dextrose(*) 1 GM/50 ML BAG IV SCH (15:10)
--- NOTE | 2018-10-23 16:27 | PN ---
Date of Service: 10/23/18 Critical Care Services: Continues with fever (Tmax 102.8) and obtundation, on cefepime for empiric Rx sepsis. Has also been on high-dose vasopressor Rx. All cultures negative except queta in sputum x 2 Vital Signs: Temp Pulse Resp BP SpO2 FiO2 98.4 F 119 18 93/45 98 40 Physical Exam: Gen: Unresponsive HEENT: pupils midposition and responsive Lungs: Scattered rhonchi Cardiac: I/ early systolic murmur along the left sternal border. Neuro:no spontaneous movements Fluid Balance (Past 24 Hours): 10/21/18 10/22/18 10/23/18 06:59 06:59 06:59 Intake Total 2328 1694 2746 Output Total 1511 1121 1087 Balance 069 697 3962 Weight 185 lb 180 lb 182 lb Intake: IV Fluids 94 1141 ABX - CEFEPIME 1086 D5W 54 NS 40 55 IVPB 60 59 ABX - CEFEPIME 59 ABX - CEFTRIAXONE 60 Medicated IV 235 725 Levophed 235 725 Oral 0 Tube Feeding 1719 800 560 Tube Feeding Flush Amount 455 600 320 Output: Kelly 1111 921 787 Nephrostomy #1 400 200 200 Nephrostomy #2 100 Other: Date of Last Bowel 10/20/18 10/22/18 10/23/18 Movement # Bowel Movements 1 1 1 Estimated Stool Amount Large Medium Large Labs: 10/18/18 10/23/18 10/23/18 05:15 03:25 03:25 WBC 20.8 H Hgb 7.5 L Hct 23 L MCV 93 Plt Count 193 Sodium 148 H Potassium 4.7 Chloride 115 H Carbon Dioxide 25 Anion Gap 8 BUN 106 Creatinine 2.39 Glucose 136 H Calcium 7.9 L Phosphorus 3.8 Magnesium 1.8 Total Creatine Kinase 23 Total Protein (PEP) 4.7 L Albumin (PEP) 1.6 L Albumin/Globulin (PEP) 0.54 Pnhsy-6-Hzarpmcgz 0.3 Zqtpk-4-Ufppukasr 0.7 Pqsz-6-Rybmnpke 0.5 L Gamma Globulins 1.6 M-Ross Not Reportable M-Ross 2 Not Reportable PEP Impression See comment Studies: Nerve conduction studies: Consistent with severe motor and sensory neuropathy. EMGs were not adequate because patient unable to participate. Nutrition: Tube feedings Impression: 1. 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 This carries a poor prognosis for weaning from mechanical ventilation (usually several months before recovery). 2. Working dx for fever, leukocytosis and hypotension is septic shock, although no pathogen has been isolated. Plan: 1. Considering the continuing sepsis and the queta in two sputum cultures ( with hyphae on gram's stain), I will Rx empirically for systemic candidiasis with anidulafungin. 2. I have a meeting with the patient's sisters tomorrow to discuss future management, and possible end-of-life decisions. Critical Care Time: 60 minutes (including time to review nerve conduction studies with neurology)
[2018-10-23] MEDS ORDERED: Piperacillin/Tazobac ADVAN(*) 3.375 GM in NS 0.9% 100 ML* 100 ML IVPB ONE (16:30)
[2018-10-23] MEDS ORDERED: Zosyn per Pharmacy* NOTE FOLLOW UP SCH (17:00)
[2018-10-23] MEDS ORDERED: Anidulafungin* 200 MG in NS 0.9% 250 ML* 200 ML IVPB ONE (18:00)
[2018-10-23] MEDS ORDERED: Digoxin IV* 0.5 MG/2 ML AMP (0.25 MG/ML) IV SLOW PU ONE (19:49)
[2018-10-23] MEDS: ZOSYN 3.375 GM Q12H per EXTENDED INFUSION IVPB SCH ×2 (20:38)
[2018-10-23] MEDS: Norepinephrine VIAL* 8 MG in NS 0.9% 500 ML* 492 ML IV SCH (21:41)
[2018-10-23] MEDS: Morphine 4 MG/ML VIAL (1 ml) 4 MG/ML VIAL IV PRN (22:56)
[2018-10-24] MEDS: Acetaminophen ADULT LIQ* 650 MG/20.3 ML UDC PO PRN (04:23)
[2018-10-24 04:44] LABS: Hematocrit 22 % (42-52); Hemoglobin 7.1 g/dL (14.0-18.0); Mean Corpuscular HGB Conc 33 g/dL (31-36); Mean Corpuscular Hemoglobin 31 pg (27-31); Mean Corpuscular Volume 93 fL (80-94); Mean Platelet Volume 8.9 fL (7.4-10.4); Platelet Count 181 10^3/uL (150-450); Red Blood Count 2.34 10^6 /uL (4.18-5.48); Red Cell Distribution Width 16 % (10-15); White Blood Count 22.7 10^3/uL (3.5-10.8)
[2018-10-24 05:08] LABS: BUN/Creatinine Ratio 45.5 (8-20); Calcium 7.5 mg/dL (8.6-10.3); EGFR African American 34.3 (>60); EGFR Non-African American 28.3 (>60); Potassium 4.6 mmol/L (3.5-5.0)
[2018-10-24] MEDS: Norepinephrine VIAL* 8 MG in NS 0.9% 500 ML* 492 ML IV SCH ×3 (05:08→22:41)
[2018-10-24] MEDS: ZOSYN 3.375 GM Q12H per EXTENDED INFUSION IVPB SCH ×6 (05:10→21:06)
[2018-10-24] MEDS: Famotidine SUSP ORALSYR 8 MG/ML G TUBE SCH (10:19)
[2018-10-24] MEDS: Digoxin TAB* 0.125 MG PO SCH (10:20)
[2018-10-24] MEDS: levETIRAcetam LIQ* 500 MG/5 ML UDC PO SCH ×2 (10:20→20:23)
[2018-10-24] MEDS: Chlorhexidine MOUTHWASH 0.12%* 15 ML UDC SWISH SPIT SCH ×3 (10:20→20:23)
[2018-10-24] MEDS: Valproic Acid LIQ(*) 250 MG/5 ML UDC PO SCH ×2 (10:21→20:23)
[2018-10-24] MEDS: DULoxetine DR CAP* 30 MG CAP.DR PO SCH (10:21)
--- NOTE | 2018-10-24 17:15 | PN ---
Date of Service: 10/24/18 Critical Care Services: Continues on the ventilator - Temp to 101 last night and leukocytosis slightly worse - Is now on antifungal Rx (since yesterday) because of queta in repeated sputum cultures. Vital Signs: Temp Pulse Resp BP SpO2 FiO2 99.8 F 103 19 102/45 99 50 10/24/18 12:00 10/24/18 14:00 10/24/18 06:00 10/24/18 14:00 10/24/18 14:00 10/24 12:00 NOTE: On norepinephrine at 8 mcg/min Physical Exam: Physical exam unchanged from yesterday. Fluid Balance (Past 24 Hours): 10/22/18 10/23/18 10/24/18 06:59 06:59 06:59 Intake Total 1694 2746 4600 Output Total 1121 1087 1053 Balance 573 1659 3547 Weight 180 lb 15.992 oz 182 lb 5.156 oz 184 lb 11.198 oz Intake: IV Fluids 1141 47 ABX - CEFEPIME 1086 NS 55 47 IVPB 59 659 ABX - CEFEPIME 59 NS 659 Medicated IV 242 604 9423 Levophed 325 935 1035 Oral 0 Tube Feeding 380 878 8176 Tube Feeding Flush Amount 600 320 160 Output: Kelly 921 787 678 Nephrostomy #1 200 200 375 Nephrostomy #2 100 Other: Date of Last Bowel 10/22/18 10/23/18 10/24/18 Movement # Bowel Movements 1 1 2 Estimated Stool Amount Medium Large Medium Labs: 10/24/18 10/24/18 10/24/18 04:22 04:22 11:10 WBC 22.7 Hgb 7.1 L Hct 22 L MCV 93 Plt Count 181 Sodium 149 H Potassium 4.6 Chloride 119 H Carbon Dioxide 22 Anion Gap 8 BUN 107 Creatinine 2.35 Est GFR ( Amer) 34.3 Est GFR (Non-Af Amer) 28.3 BUN/Creatinine Ratio 45.5 H Glucose 133 H Lactic Acid 0.8 Calcium 7.5 L Studies: None today Nutrition: Tube feedings Impression: 1. Signs of progressive sepsis but no pathogen isolated. We are including empiric Rx for systemic candidiasis. 2. Respiratory status unchanged 3. About 5 liters positive fluid balance last 3 days 4. Severe peripheral neuropathy by nerve conduction studies - this most likely represents critical illness polyneuropathy. Plan: I spoke with patient's 2 sisters and 2 sons today about the poor prognosis. They will decide about code status and tracheostomy (patient has been intubated for almost 2 weeks). Critical Care Time: 60 minutes (including time spent with family)
[2018-10-24] MEDS: Anidulafungin* 100 MG in NS 0.9% 100 ML* 100 ML IVPB SCH (19:18)
[2018-10-25] MEDS: ZOSYN 3.375 GM Q12H per EXTENDED INFUSION IVPB SCH ×6 (04:48→21:27)
[2018-10-25 05:07] LABS: Hematocrit 20 % (42-52); Hemoglobin 6.5 g/dL (14.0-18.0); Mean Corpuscular HGB Conc 32 g/dL (31-36); Mean Corpuscular Hemoglobin 30 pg (27-31); Mean Corpuscular Volume 93 fL (80-94); Mean Platelet Volume 8.6 fL (7.4-10.4); Platelet Count 153 10^3/uL (150-450); Red Blood Count 2.16 10^6 /uL (4.18-5.48); Red Cell Distribution Width 16 % (10-15); White Blood Count 26.1 10^3/uL (3.5-10.8)
[2018-10-25 05:24] LABS: BUN/Creatinine Ratio 42.1 (8-20); Calcium 7.4 mg/dL (8.6-10.3); EGFR African American 33.5 (>60); EGFR Non-African American 27.7 (>60); Potassium 4.3 mmol/L (3.5-5.0)
[2018-10-25] MEDS: Norepinephrine VIAL* 8 MG in NS 0.9% 500 ML* 492 ML IV SCH ×3 (06:07→19:44)
[2018-10-25] MEDS: Chlorhexidine MOUTHWASH 0.12%* 15 ML UDC SWISH SPIT SCH ×3 (08:30→21:26)
[2018-10-25] MEDS ORDERED: NS 0.45% 1000 ML BAG* 1,000 ML IV SCH (09:00)
[2018-10-25] MEDS: levETIRAcetam LIQ* 500 MG/5 ML UDC PO SCH ×2 (09:09→21:26)
[2018-10-25] MEDS: Valproic Acid LIQ(*) 250 MG/5 ML UDC PO SCH ×2 (09:09→21:26)
[2018-10-25] MEDS: Famotidine SUSP ORALSYR 8 MG/ML G TUBE SCH (09:10)
[2018-10-25] MEDS: DULoxetine DR CAP* 30 MG CAP.DR PO SCH (09:10)
[2018-10-25] MEDS ORDERED: Furosemide IV* 10 MG/ML VIAL (40 MG) IV ONE (13:28)
--- NOTE | 2018-10-25 16:33 | PN ---
Date of Service: 10/25/18 Critical Care Services: Remains on ventilator and on vasopressor. Opens eyes to noise but does not localize. Vital Signs: Temp Pulse Resp BP SpO2 FiO2 99.8 F 109 21 107/45 100 50 Physical Exam: Gen:Eyes open but is unresponsive Lungs: scaterred rhonchi. No crackles Extremities: 3+edema Fluid Balance (Past 24 Hours): 10/23/18 10/24/18 10/25/18 06:59 06:59 06:59 Intake Total 2746 4600 2184 Output Total 1087 1053 998 Balance 1659 3547 1186 Weight 182 lb 184 lb 178 lb Intake: IV Fluids 1141 47 120 ABX - CEFEPIME 1086 NS 55 47 120 IVPB 659 511 NS 659 511 Medicated IV 725 1798 1453 Levophed 725 1798 1453 Tube Feeding 560 1936 Tube Feeding Flush Amount 320 160 100 Output: Kelly 787 678 733 Nephrostomy #1 200 375 265 Nephrostomy #2 100 Other: Date of Last Bowel 10/23/18 10/24/18 10/25/18 Movement # Bowel Movements 1 2 2 Estimated Stool Amount Large Medium Large Labs: 10/25/18 10/25/18 10/25/18 04:58 04:58 04:58 WBC 26.1 H RBC 2.16 L Hgb 6.5 L Hct 20 L MCV 93 MCH 30 MCHC 32 RDW 16 H Plt Count 153 MPV 8.6 Sodium 150 H Potassium 4.3 Chloride 121 H Carbon Dioxide 21 L Anion Gap 8 BUN 101 H Creatinine 2.40 H Est GFR ( Amer) 33.5 Est GFR (Non-Af Amer) 27.7 BUN/Creatinine Ratio 42.1 H Glucose 114 H Lactic Acid 0.8 Calcium 7.4 L Studies: None today Nutrition: tube feeding Impression: Continues to require full life-support (mechanical ventilation and vasopressors) . Plan: Trial of diuretic Rx, with caution because of renal insufficiency. Prognosis remains very poor. Critical Care Time: 40 minutes
[2018-10-25] MEDS ORDERED: NS 0.9% 500 ML* 500 ML ONE (17:30)
[2018-10-25] MEDS: Anidulafungin* 100 MG in NS 0.9% 100 ML* 100 ML IVPB SCH (18:17)
[2018-10-26] MEDS: ZOSYN 3.375 GM Q12H per EXTENDED INFUSION IVPB SCH ×2 (05:13)
[2018-10-26 05:33] LABS: Hematocrit 18 % (42-52); Mean Corpuscular HGB Conc 33 g/dL (31-36); Mean Corpuscular Hemoglobin 31 pg (27-31); Mean Corpuscular Volume 94 fL (80-94); Mean Platelet Volume 8.9 fL (7.4-10.4); Platelet Count 113 10^3/uL (150-450); Red Blood Count 1.94 10^6 /uL (4.18-5.48); Red Cell Distribution Width 16 % (10-15); White Blood Count 21.5 10^3/uL (3.5-10.8)
[2018-10-26 05:43] LABS: BUN/Creatinine Ratio 41.9 (8-20); Calcium 7.8 mg/dL (8.6-10.3); EGFR African American 35.7 (>60); EGFR Non-African American 29.5 (>60); Potassium 3.8 mmol/L (3.5-5.0)
[2018-10-26] MEDS: Norepinephrine VIAL* 8 MG in NS 0.9% 500 ML* 492 ML IV SCH ×2 (08:49→08:51)
[2018-10-26] MEDS: Chlorhexidine MOUTHWASH 0.12%* 15 ML UDC SWISH SPIT SCH (08:49)
[2018-10-26] MEDS: Digoxin TAB* 0.125 MG PO SCH (08:51)
[2018-10-26] MEDS: Valproic Acid LIQ(*) 250 MG/5 ML UDC PO SCH (08:51)
[2018-10-26] MEDS: levETIRAcetam LIQ* 500 MG/5 ML UDC PO SCH (08:51)
[2018-10-26] MEDS: Famotidine SUSP ORALSYR 8 MG/ML G TUBE SCH (08:51)
[2018-10-26] MEDS: DULoxetine DR CAP* 30 MG CAP.DR PO SCH (08:51)
[2018-10-26] MEDS ORDERED: Morphine PCA 5 MG/ML * Titrate per Protocol PCA SCH (13:00)
[2018-10-26] MEDS ORDERED: [UNRECOGNIZED DRUG - OTHER] IV SCH (13:00)
[2018-10-26] MEDS ORDERED: Morphine 10 MG/ML VIAL (1 ml) IV ONE (13:00)
[2018-10-26] MEDS ORDERED: LORAZEPAM IV SCH (13:00)
[2018-10-26] MEDS ORDERED: Lorazepam PYXIS KEY ONE (13:15)
[2018-10-26] MEDS ORDERED: LORazepam INJ* 2 MG/ML 1 ML VIAL ONE (13:18)
[2018-10-26] MEDS ORDERED: Morphine 10 MG/ML VIAL (1 ml) ONE (13:43)
[2018-10-26 14:31] VITALS: BP 82/44
[2018-10-26] MEDS ORDERED: LORazepam INJ* 2 MG/ML 1 ML VIAL IV PUSH ONE (15:00)
--- NOTE | 2018-10-26 18:15 | DS ---
SUMMARY: DATE OF ADMISSION: 10/09/18 DATE OF : 10/26/18 TIME OF : 3:06 p.m. HISTORY: This patient was a 63-year-old male multiple medical problems ( including PH stroke and mitral valve replacement) who was admitted on 10/09/2018 with an obstructive uropathy secondary to renal calculi, complicated by E. coli septicemia. The patient had a nephrostomy placed and received broad-spectrum antibiotic coverage. During the ensuing hospitalization, the patient developed a progressive encephalopathy (thought secondary to sepsis) hypoxic respiratory failure requiring intubation (on 10/11/18), and persistent hypotension (from presumd septic shock) requiring vasopressor support. The patient remained intubated and multiple attempts to wean the patient from the ventilator were unsuccessful - on 10/24/18, the patient had nerve conduction studies which were consistent with the diagnosis of "critical illness polyneuropathy" (which was probably the reason for the continued ventilator dependence). During this time , there was progressive increase in pulmonary infiltrates and multiple cultures were negative except for queta isolated in 2 consecutive sputum cultures. Because of this, the patient was started on empiric antifungal treatment, but with no apparent benefit. The patient had also developed acute kidney injury from the persistent hypotension and creatinines were in he 2 - 2.5 range throughout most of the hospitalization. After approximately 2 weeks of hospitalization, the patient had developed multiorgan dysfunction, which included acute respiratory failure, acute renal failure, encephalopathy, and chronic requirement for vasopressors to maintain blood pressure. That in addition with a diagnosis of critical illness polyneuropathy (a long-lasting condition that can take months to resolve and results in long-term ventilator dependency), a meeting was conducted with the patient's sisters and sons and the full extent of the patient's medical condition was explained and the poor prognosis was emphasized. Subsequent to this, the patient's healthcare proxy ( one of his sisters) requested comfort measures care and that was instituted on 10/26/18. The patient was taken off the ventilator and the endotracheal tube was removed and the patient was started on a morphine and Ativan infusion for comfort. All other meds were discontinued and shortly thereafter, the patient developed asystole and was pronounced at 3:06 PM Both his sisters were present at the bedside and an autopsy was denied. The medical writer was contacted will issue the certificate. FINAL DIAGNOSES: 1. Obstructive uropathy with gram-negative (E. Coli) septicemia and septic shock. 2. Septic encephalopathy 3. Acute kidney injury secondary to septic shock 4. Critical illness polyneuropathy secondary to septic shock.. 5. Acute hypoxic respiratory failure secondary to septic shock, possible fungal pneumonia, and critical illness polyneuropathy. CRITICAL CARE TIME: 60 minutes. [id number]/CPS #: [id number]
== END 2018-10-26 15:15 | disposition expired | DRG 710 ==
LOC: ED 14:57 → EEVIPCON 20:06 → ICU 20:06
PROVIDERS: ADMIT Internal Medicine; ATTEND Internal Medicine Critical Care Medicine
PROC: 0T9130Z Drainage of Left Kidney with Drainage Device, Percutaneous Approach (ICD-10-PCS; principal; 2018-10-09)
PROC: 30233R1 Transfusion of Nonautologous Platelets into Peripheral Vein, Percutaneous Approach (ICD-10-PCS; 2018-10-10)
PROC: 05HM33Z Insertion of Infusion Device into Right Internal Jugular Vein, Percutaneous Approach (ICD-10-PCS; 2018-10-10)
PROC: 0BH17EZ Insertion of Endotracheal Airway into Trachea, Via Natural or Artificial Opening (ICD-10-PCS; 2018-10-11)
PROC: 5A1955Z Respiratory Ventilation, Greater than 96 Consecutive Hours (ICD-10-PCS; 2018-10-11)
PROC: 30233N1 Transfusion of Nonautologous Red Blood Cells into Peripheral Vein, Percutaneous Approach (ICD-10-PCS; 2018-10-11)
PROC: 4A00X4Z Measurement of Central Nervous Electrical Activity, External Approach (ICD-10-PCS; 2018-10-13)
PROC: 3E033XZ Introduction of Vasopressor into Peripheral Vein, Percutaneous Approach (ICD-10-PCS; 2018-10-13)
PROC: 0BP1XDZ Removal of Intraluminal Device from Trachea, External Approach (ICD-10-PCS; 2018-10-26)
DX: A41.51 Sepsis due to Escherichia coli [E. coli] (principal); G93.41 Metabolic encephalopathy; J96.01 Acute respiratory failure with hypoxia; I50.33 Acute on chronic diastolic (congestive) heart failure; B37.1 Pulmonary candidiasis; R65.21 Severe sepsis with septic shock; N17.9 Acute kidney failure, unspecified; I42.9 Cardiomyopathy, unspecified; I24.8 Other forms of acute ischemic heart disease; D61.818 Other pancytopenia; N13.6 Pyonephrosis; G81.94 Hemiplegia, unspecified affecting left nondominant side; R40.2252 Coma scale, best verbal response, oriented, at arrival to emergency department; I25.10 Atherosclerotic heart disease of native coronary artery without angina pectoris; B37.7 Candidal sepsis; G47.30 Sleep apnea, unspecified; R40.2362 Coma scale, best motor response, obeys commands, at arrival to emergency department; R40.2142 Coma scale, eyes open, spontaneous, at arrival to emergency department; E78.5 Hyperlipidemia, unspecified; I48.2 Chronic atrial fibrillation; R73.9 Hyperglycemia, unspecified; G40.909 Epilepsy, unspecified, not intractable, without status epilepticus; E83.42 Hypomagnesemia; N18.9 Chronic kidney disease, unspecified; G62.9 Polyneuropathy, unspecified; I27.20 Pulmonary hypertension, unspecified; I50.810 Right heart failure, unspecified; Z82.49 Family history of ischemic heart disease and other diseases of the circulatory system; Z88.8 Allergy status to other drugs, medicaments and biological substances; Z95.2 Presence of prosthetic heart valve; Z87.11 Personal history of peptic ulcer disease; Z86.73 Personal history of transient ischemic attack (TIA), and cerebral infarction without residual deficits; Z86.74 Personal history of sudden cardiac arrest; Z87.891 Personal history of nicotine dependence; I25.2 Old myocardial infarction; Z83.3 Family history of diabetes mellitus
CPT/HCPCS: 36415; 36600; 50432; 70450; 71045; 74176; 76700; 77012; 80048; 80053; 80076; 80162; 80164; 80165; 80177; 81003; 81015; 82140; 82330; 82550; 82803; 83605; 83615; 83735; 83880; 84100; 84155; 84165; 84484; 85025; 85027; 85045; 85060; 85384; 85397; 85610; 85730; 86022; 86850; 86870; 86880; 86900; 86901; 86922; 87040; 87070; 87077; 87086; 87106; 87186; 87205; 87493; 87641; 93005; 93306; 94002; 94003; 95822; 95885; 95910; 99232; 99233; 99285; A9270-GY; C1729; C1769; G0480; J0282; J0330; J0348; J0692; J0696; J1160; J1561; J1644; J1940; J1953; J2060; J2270; J2310; J2405; J2543; J2704; J2765; J2930; J3010; J3370; J3475; J3480; J7060; P9035; P9040; P9047